=== PATIENT | female | born 1945 | race Two or more races ===

== ENCOUNTER 2017-11-12 10:37 | Inpatient (IN) | payer OTHER, MEDICAID ==
[~2017-11-12] VITALS: Ht 167.6 cm; Wt 81.6 kg
[2017-11-12] MEDS ORDERED: IV NS 0.9% 1,000 ML BAG IV ONE ×3 (11:30→15:30)
[2017-11-12 11:33] VITALS: BP 81/48
[2017-11-12 11:59] LABS: BASOPHILS # (AUTO) 0.2 /CMM (0.0-0.2); BASOPHILS % (AUTO) 0.8 % (0.0-2.0); EOSINOPHILS % (AUTO) 0.1 % (0.0-6.0); HEMATOCRIT 26 % (33-45); HEMOGLOBIN 8.6 g/dL (11.5-14.8); LYMPHOCYTES # (AUTO) 0.2 /CMM (0.8-4.8); LYMPHOCYTES % (AUTO) 0.9 % (20.0-44.0); MEAN CORPUSCULAR HEMOGLOBIN 30 PG (26.0-33.0); MEAN CORPUSCULAR HGB CONC 33 g/dl (31.0-36.0); MEAN CORPUSCULAR VOLUME 91 fL (82-100); MONOCYTES # (AUTO) 0.2 /CMM (0.1-1.30); MONOCYTES % (AUTO) 1.2 % (2.0-12.0); NEUTROPHILS # (AUTO) 20.1 /CMM (1.8-8.9); PLATELET COUNT (AUTO) 265 /CMM (150-450); RDW COEFFICIENT OF VARIATION 19.7 (11.5-15.0); RED BLOOD CELL COUNT(AUTO) 2.82 MIL/uL (4.0-5.2); WHITE BLOOD COUNT (AUTO) 20.8 K/uL (4.3-11.0)
[2017-11-12 12:17] LABS: INR 1.06 (0.87-1.13)
[2017-11-12 12:18] LABS: ALANINE AMINOTRANSFERASE 116 U/L (12-78); ALBUMIN 2.1 g/dL (3.4-5.0); ALKALINE PHOSPHATASE 362 U/L (46-116); ASPARTATE AMINOTRANSFERASE 134 U/L (15-37); BILIRUBIN,DIRECT 0.5 mg/dL (0.0-0.2); BILIRUBIN,TOTAL 0.7 mg/dL (0.2-1.0); CALCIUM, SERUM 9.6 mg/dL (8.5-10.1); CARBON DIOXIDE 28 mmol/L (21-32); CHLORIDE 99 mmol/L (98-107); CREATININE 3.5 mg/dL (0.6-1.3); GLUCOSE 193 mg/dL (74-106); POTASSIUM 4.6 mmol/L (3.5-5.1); SODIUM SERUM 136 mmol/L (136-145); TOTAL PROTEIN, SERUM 7.9 g/dL (6.4-8.2)
[2017-11-12 12:19] LABS: UREA NITROGEN, BLOOD 90 mg/dL (7-18)
[2017-11-12 12:20] LABS: TROPONIN I 0.299 ng/mL (0.00-0.056)
[2017-11-12] MEDS ORDERED: MEROPENEM 500 MG in IV NS 0.9% 50 ML IV ONE (13:00)
[2017-11-12] MEDS ORDERED: VANCOMYCIN 1 GM in IV D5W 250 ML IV ONE (13:00)
[2017-11-12 13:50] LABS: ABG PCO2 42.5 mmHg (35.0-45.0); ABG PH 7.388 (7.350-7.450); ABG PO2 225.6 mmHg (75.0-100.0); AaDO2 10.7 mmHg; COHb 0.6 % (0.5-1.5); MetHb 0.6 % (0.0-1.5); O2Hb 97.8 % (94.0-97.0); PEEP,BG 5 cm H2O; SITE, ABG Right Radial; VENT MODE, BG A/C; VT, ABG 400 mL
[2017-11-12] MEDS ORDERED: PIPERACILLIN /TAZOBACTAM 3.375 G in IV D5W 50 ML IV ONE (14:30)
[2017-11-12] MEDS ORDERED: LEVOFLOXACIN 750 MG /D5W 150ML 150 ML IV ONE ×2 (15:08→21:24)
[2017-11-12] MEDS ORDERED: LEVOFLOXACIN 750 MG /D5W 150ML PIGGYBACK IV ONE (15:30)
[2017-11-12 15:35] VITALS: BP 85/49
--- NOTE | 2017-11-12 16:00 | NUR ---
PATIENT ARRIVED TO THE FLOOR IN STABLE CONDITION. IN NO APPARENT DISTRESS. BEDSIDE RAILS ARE UP X2. BED IS LOCKED AND LOWERED. WILL CONTINUE TO MONITOR.
--- NOTE | 2017-11-12 16:07 | NUR ---
PT. TRANSFERRED TO 304 BED 2. PT. USED SAME [facility] VENT PLUGGED INTO RED OUTLET WITH ALARM ON AND FUNCTIONING. KINA BAG @ BEDSIDE. Addendum: 11/12/17 at 1608 by WILLIAM SMITH RT Amended: Links added.
[2017-11-12] MEDS ORDERED: FEE PK DOSING 1 MIN EA MC ONE (17:27)
--- NOTE | 2017-11-12 19:00 | NUR ---
FREQUENCY CHECKER CLOSING NOTES PATIENT IS IN STABLE CONDITION. IN NO APPARENT DISTRESS. BEDSIDE RAILS ARE UP X2. BED IS LOCKED AND LOWERED. WILL ENDORSE CARE TO DIRECTOR FOR BEAUT[employer] SCHOOL NURSE FOR SATISH.
--- NOTE | 2017-11-12 19:15 | NUR ---
ANIMAL HUSBANDRY TECHNICIAN NOTES RECEIVED ON BED,NON VERBAL,ON TRACH TO VENT,SETTINGS TOLERATED WELL.WITH GT CLAMPED,INCONTINENT OF B/B,BEDBOUND,SALINE LOCK RAC INTACT AND PATENT,RIGHT PERMA CATH FOR HD ACCESS.AWAITING ORDERS FROM MARIAM ATKINSON DNP.WILL CONTINUE TO MONITOR STATUS.
[2017-11-12] MEDS ORDERED: ONDANSETRON HCL/PF 4 MG/2 ML VIAL IVP PRN (19:30)
[2017-11-12] MEDS ORDERED: Z GUARD REMEDY 2 OZ OINT TP PRN (19:30)
[2017-11-12] MEDS ORDERED: ENOXAPARIN SODIUM 40 MG/0.4 ML DISP.SYRIN SQ SCH (19:30)
--- NOTE | 2017-11-12 19:50 | NUR ---
BUSINESS ANALYST PROJECT MANAGER NOTES SPOKE TO MARIAM FOR ORDERS.
[2017-11-12] MEDS ORDERED: LEVOFLOXACIN 750 MG /D5W 150ML 750 MG in PREMIX 1 EA IV SCH (20:00)
[2017-11-12 20:24] VITALS: BP 88/56
[2017-11-12 21:16] VITALS: BP_SYST 87
[2017-11-12] MEDS ORDERED: ENOXAPARIN SODIUM 40 MG/0.4 ML DISP.SYRIN SQ ONE (21:23)
[2017-11-12] MEDS ORDERED: MEROPENEM 1 G VIAL IV ONE (21:25)
--- NOTE | 2017-11-12 21:27 | NUR ---
INTELLECTUAL PROPERTY LAWYER NOTES STARTED ON LOVENOX 40MG GIVEN SQ VIA RIGHT LOWER ABDOMEN
[2017-11-12] MEDS: MEROPENEM 1 G in IV NS 0.9% 100 ML IV SCH (21:42)
--- NOTE | 2017-11-12 21:42 | NUR ---
CLINICAL DOCUMENTATION MANAGER NOTES STARTED ON MERREM 1GM IVPB ORDERED
[2017-11-12] MEDS: IV NS 0.9% 1,000 ML IV PRN (21:47)
--- NOTE | 2017-11-12 21:47 | NUR ---
HAT BRIM AND CROWN LAMINATING OPERATOR NOTES STARTED ON NS AT 75ML/HR RATE ORDERED
[2017-11-13] VITALS: BP 90/48
[2017-11-13 01:31] VITALS: BP 90/48
[2017-11-13 03:56] VITALS: BP 85/47
[2017-11-13] MEDS ORDERED: DEXTROSE 50%-WATER 50 ML DISP.SYRIN IV PRN (04:30)
[2017-11-13] MEDS ORDERED: MEROPENEM 1 G VIAL IV ONE (04:48)
[2017-11-13] MEDS: MEROPENEM 1 G in IV NS 0.9% 100 ML IV SCH (04:59)
[2017-11-13] MEDS: BLOOD SUGAR DIAGNOSTIC 1 EACH STRIP IN SCH ×4 (05:48→23:50)
[2017-11-13] MEDS ORDERED: RENAL NOVASOURCE 1,000 ML BOTTLE GT PRN ×2 (07:00→09:58)
--- NOTE | 2017-11-13 07:22 | NUR ---
BACK END DEVELOPER OPENING NOTES RECEIVED PATIENT IN STABLE CONDITION. IN NO APPARENT DISTRESS. BEDSIDE RAILS ARE UP X2. BED IS LOCKED AND LOWERED. WILL CONTINUE TO MONITOR.
[2017-11-13 08:00] VITALS: BP 80/47
[2017-11-13 08:27] LABS: ALANINE AMINOTRANSFERASE 118 U/L (12-78); ALBUMIN 1.8 g/dL (3.4-5.0); ALKALINE PHOSPHATASE 303 U/L (46-116); ASPARTATE AMINOTRANSFERASE 131 U/L (15-37); BILIRUBIN,TOTAL 0.8 mg/dL (0.2-1.0); CALCIUM, SERUM 9.2 mg/dL (8.5-10.1); CARBON DIOXIDE 25 mmol/L (21-32); CHLORIDE 104 mmol/L (98-107); GLUCOSE 73 mg/dL (74-106); MAGNESIUM 2.3 mg/dL (1.8-2.4); PHOSPHORUS 2.1 mg/dL (2.5-4.9); POTASSIUM 4.8 mmol/L (3.5-5.1); SODIUM SERUM 141 mmol/L (136-145); TOTAL PROTEIN, SERUM 7.3 g/dL (6.4-8.2)
[2017-11-13 08:28] LABS: BASOPHILS % (AUTO) 0.1 % (0.0-2.0); EOSINOPHILS # (AUTO) 0.1 /CMM (0.0-0.7); EOSINOPHILS % (AUTO) 0.7 % (0.0-6.0); HEMATOCRIT 24 % (33-45); HEMOGLOBIN 7.8 g/dL (11.5-14.8); LYMPHOCYTES # (AUTO) 0.5 /CMM (0.8-4.8); LYMPHOCYTES % (AUTO) 2.9 % (20.0-44.0); MEAN CORPUSCULAR HEMOGLOBIN 30 PG (26.0-33.0); MEAN CORPUSCULAR HGB CONC 33 g/dl (31.0-36.0); MEAN CORPUSCULAR VOLUME 91 fL (82-100); MONOCYTES # (AUTO) 0.6 /CMM (0.1-1.30); MONOCYTES % (AUTO) 3.5 % (2.0-12.0); NEUTROPHILS # (AUTO) 15.8 /CMM (1.8-8.9); NEUTROPHILS % (AUTO) 92.8 % (43.0-81.0); PLATELET COUNT (AUTO) 231 /CMM (150-450); RED BLOOD CELL COUNT(AUTO) 2.59 MIL/uL (4.0-5.2)
[2017-11-13 09:21] LABS: UREA NITROGEN, BLOOD 97 mg/dL (7-18)
[2017-11-13] MEDS ORDERED: MIDO5TAB GT (10:07)
[2017-11-13] MEDS ORDERED: IPRA3AMP IH (10:07)
[2017-11-13] MEDS ORDERED: POLY119P2 GT (10:07)
[2017-11-13] MEDS ORDERED: ATOR40TA GT (10:07)
[2017-11-13] MEDS ORDERED: B CO1TAB7 GT (10:07)
[2017-11-13] MEDS ORDERED: NUT.237L67 GT (10:07)
[2017-11-13] MEDS ORDERED: ASPI-1169 GT (10:07)
[2017-11-13] MEDS ORDERED: RISP1TAB27 GT (10:07)
[2017-11-13] MEDS ORDERED: EPOE20005 SQ (10:07)
[2017-11-13] MEDS ORDERED: METO-295 GT (10:07)
[2017-11-13] MEDS ORDERED: PANT40TA4 GT (10:07)
[2017-11-13] MEDS ORDERED: DOCU50LI GT (10:07)
[2017-11-13] MEDS ORDERED: INSU100I14 SQ (10:07)
[2017-11-13] MEDS: HEPARIN SODIUM, PORCINE 5000 UNITS/1 ML VIAL SQ SCH ×2 (10:30→21:00)
--- NOTE | 2017-11-13 10:30 | NUR ---
HELD HEPARIN. LOW HEMOGLOBIN. 7.6
[2017-11-13 11:02] LABS: CHOLESTEROL 52 mg/dL (<200); LDL 14 mg/dL (0-99); THYROID STIMULATING HORMONE 3.554 uIU/mL (0.358-3.74); TRIGLYCERIDES 133 mg/dL (30-150)
[2017-11-13 11:36] LABS: HDL CHOLESTEROL < 10 mg/dL (40-60)
[2017-11-13] MEDS ORDERED: NEUTRA PHOS 1 POWD.PACKET NG ONE (14:30)
[2017-11-13 16:00] VITALS: BP 131/78
[2017-11-13] MEDS ORDERED: VANCOMYCIN 500 MG in IV D5W 100 ML IV PRN (16:00)
--- NOTE | 2017-11-13 19:01 | NUR ---
MS RN CLOSING NOTES PATIENT IS IN STABLE CONDITION IN NO APPARENT DISTRESS. BEDSIDE RAILS ARE UP X2. BED IS LOCKED AND LOWERED. CALL LIGHT IS WITHIN REACH. WILL ENDORSE CARE TO SCIENTIFIC INFORMATICS PROJECT LEADER NURSE FOR SATISH.
--- NOTE | 2017-11-13 19:10 | NUR ---
RN OPENING NOTES PATIENT RECEIVED IN BED, AWAKE, NON VERBAL, IV HYDRATION INFUSING ORDERED. IN NO ACUTE DISTRESS AT THIS TIME, SR @ 92 BPM. NOTED WITH NO FACIAL GRIMACING, CALL LIGHT PLACED WITHIN EASY REACH, HOB ELEVATED. WILL CONTINUE TO MONITOR.
[2017-11-13 20:00] VITALS: BP_SYST 89; BP_SYST 90; BP_DIAS 35; BP_DIAS 40
[2017-11-13] MEDS: MEROPENEM 500 MG in IV NS 0.9% 50 ML IV SCH (20:24)
[2017-11-13] MEDS: IV NS 0.9% 1,000 ML IV PRN (20:24)
--- NOTE | 2017-11-13 21:00 | NUR ---
RN NOTES HEPARIN HELD DUE TO HGB LOW LEVEL: 7.8
[2017-11-13] MEDS: INSULIN REGULAR, HUMAN 100 UNIT/ML 3 ML VIAL SQ PRN (23:49)
[2017-11-14] VITALS (7 sets, daily range): BP systolic 87–104; BP diastolic 51–57
[2017-11-14] MEDS: ACETAMINOPHEN 325 MG TABLET PO PRN ×2 (02:52→09:31)
[2017-11-14] MEDS: BLOOD SUGAR DIAGNOSTIC 1 EACH STRIP IN SCH ×3 (05:39→18:28)
[2017-11-14] MEDS: INSULIN REGULAR, HUMAN 100 UNIT/ML 3 ML VIAL SQ PRN ×2 (05:41→13:00)
--- NOTE | 2017-11-14 06:45 | NUR ---
RN CLOSING NOTES PATIENT IN BED, AWAKE, ALERT AND VERBALLY RESPONSIVE, ON MECH VENT WITH O2 SAT @ 100%, UNDER TELE MONITORING SR@90 WITH BBB, NO C/O PAIN AT THIS TIME, NO S/S OF ACUTE DISTRESS. ALL PATIENT'S NEEDS ATTENDED TO, CALL LIGHT PLACED WITHIN EASY REACH. WILL ENDORSE TO AM SHIFT FOR CONTINUITY OF CARE.
[2017-11-14 07:16] LABS: EOSINOPHILS # (AUTO) 0.2 /CMM (0.0-0.7); EOSINOPHILS % (AUTO) 1.1 % (0.0-6.0); HEMATOCRIT 24 % (33-45); HEMOGLOBIN 8.2 g/dL (11.5-14.8); LYMPHOCYTES # (AUTO) 0.6 /CMM (0.8-4.8); LYMPHOCYTES % (AUTO) 3.9 % (20.0-44.0); MEAN CORPUSCULAR HEMOGLOBIN 31 PG (26.0-33.0); MEAN CORPUSCULAR HGB CONC 34 g/dl (31.0-36.0); MEAN CORPUSCULAR VOLUME 91 fL (82-100); MONOCYTES # (AUTO) 0.6 /CMM (0.1-1.30); PLATELET COUNT (AUTO) 239 /CMM (150-450); RDW COEFFICIENT OF VARIATION 19.9 (11.5-15.0); RED BLOOD CELL COUNT(AUTO) 2.68 MIL/uL (4.0-5.2); WHITE BLOOD COUNT (AUTO) 15.4 K/uL (4.3-11.0)
--- NOTE | 2017-11-14 07:24 | NUR ---
PT. RECEIVED ON VENT SUPPORT VIA TRACH WITH PARAMETERS SET ORDERED. [facility] VENT PLUGGED INTO RED OUTLET WITH ALARMS ON AND FUNCTIONING. B/S COURSE RHONCHI BILATERAL, SXN MOD. AMNT PALE YELLOW SEMI THICK SECRETIONS. AMBUBAG AT BEDSIDE. Addendum: 11/14/17 at 1707 by WILLIAM SMITH RT Amended: Links added.
[2017-11-14 07:55] LABS: CALCIUM, SERUM 9.4 mg/dL (8.5-10.1); CARBON DIOXIDE 25 mmol/L (21-32); CHLORIDE 101 mmol/L (98-107); CREATININE 4.3 mg/dL (0.6-1.3); GLUCOSE 164 mg/dL (74-106); MAGNESIUM 2.4 mg/dL (1.8-2.4); PHOSPHORUS 2.2 mg/dL (2.5-4.9); POTASSIUM 4.7 mmol/L (3.5-5.1); SODIUM SERUM 138 mmol/L (136-145)
[2017-11-14 07:57] LABS: UREA NITROGEN, BLOOD 119 mg/dL (7-18)
--- NOTE | 2017-11-14 08:00 | NUR ---
RN OPENING NOTES PATIENT IN BED, AWAKE, NON VERBAL, HOB ELEVATED .NO ACUTE DISTRESS NOTED. NO FACIAL GRIMACING NOTED. NO SOB NOTED. IV ACCESS PATENT AND INTACT. NO REDNESS, NO S/SX OF INFILTRATION NOTED. CALL LIGHT PLACED WITHIN REACH. SAFETY MEASURES IN PLACE. WILL CONTINUE TO MONITOR ACCORDINGLY.
[2017-11-14] MEDS: HEPARIN SODIUM, PORCINE 5000 UNITS/1 ML VIAL SQ SCH ×2 (09:00→21:00)
--- NOTE | 2017-11-14 09:00 | NUR ---
RN NOTES HEPARIN HELD DUE TO HGB LOW LEVEL
[2017-11-14] MEDS: MEROPENEM 500 MG in IV NS 0.9% 50 ML IV SCH ×2 (09:30→21:58)
[2017-11-14] MEDS ORDERED: EPOETIN ALFA (10,000 UNIT) 10,000 UNIT/ML VIAL IV ONE (13:00)
[2017-11-14] MEDS ORDERED: ALBUMIN 25% 25 GM in PREMIX 1 EA IV PRN (15:30)
--- NOTE | 2017-11-14 17:07 | NUR ---
NO VENT CHANGES MADE. Addendum: 11/14/17 at 1707 by WILLIAM SMITH RT Amended: Links added.
[2017-11-14] MEDS: PROSOURCE / PROSTAT (PYXIS) 30 ML UDC GT SCH (18:26)
--- NOTE | 2017-11-14 18:55 | NUR ---
RN CLOSING NOTES PATIENT IN BED, ALERT, NON VERBAL, HOB ELEVATED. NO SOB NOTED. NO ACUTE DISTRESS NOTED. DENIED ANY PAIN ,NO FACIAL GRIMACING NOTED. IV ACCESS PATENT AND INTACT. NO REDNESS, NO S/SX OF INFILTRATION NOTED. GTUBE PATENT AND INTACT RUNNING PRESCRIBED FEEDING. DUE MEDICATIONS GIVEN, NO ASE NOTED.EPOGEN GIVEN WHEN AVAILABLE. HEMODIALYSIS DONE TODAY. VITAL SIGNS STABLE. NEEDS ATTENDED. CALL LIGHT PLACED WITHIN REACH. SAFETY MEASURES IN PLACE. WILL CONTINUE TO MONITOR ACCORDINGLY.WILL ENDORSE TO SALES PRODUCT MANAGER FOR CONTINUITY OF CARE.
[2017-11-14] MEDS ORDERED: LEVOFLOXACIN 500 MG /D5W 100ML 500 MG in PREMIX 1 EA IV SCH (23:00)
[2017-11-15] VITALS: BP 118/72
[2017-11-15] MEDS: BLOOD SUGAR DIAGNOSTIC 1 EACH STRIP IN SCH ×4 (00:01→17:57)
[2017-11-15] MEDS: INSULIN REGULAR, HUMAN 100 UNIT/ML 3 ML VIAL SQ PRN ×2 (00:26→23:49)
--- NOTE | 2017-11-15 00:28 | NUR ---
CABLE RESPOOLER NOTE BLOOD SUGAR 139. 2 UNITS OF INSULIN GIVEN.
[2017-11-15 04:00] VITALS: BP_SYST 107; BP_SYST 118; BP_DIAS 50; BP_DIAS 72
[2017-11-15] MEDS: RENAL NOVASOURCE 1,000 ML BOTTLE GT PRN (06:02)
--- NOTE | 2017-11-15 06:37 | NUR ---
WRITING TUTOR NOTE PATIENT KEPT CLEAN AND DRY. TELE SR WITH BBB'S. VENT DEPENDENT, WITH SETTINGS IN PLACE ORDERED. WOUND CARE PERFORMED ORDERED. BLOOD SUGAR 95. NO COVERAGE NEEDED. WILL ENDORSE TO DAY SHIFT FOR SATISH.
[2017-11-15 06:41] LABS: EOSINOPHILS # (AUTO) 0.4 /CMM (0.0-0.7); EOSINOPHILS % (AUTO) 2.4 % (0.0-6.0); HEMATOCRIT 25 % (33-45); LYMPHOCYTES # (AUTO) 0.9 /CMM (0.8-4.8); LYMPHOCYTES % (AUTO) 5.3 % (20.0-44.0); MEAN CORPUSCULAR HEMOGLOBIN 30 PG (26.0-33.0); MEAN CORPUSCULAR HGB CONC 33 g/dl (31.0-36.0); MEAN CORPUSCULAR VOLUME 92 fL (82-100); MONOCYTES # (AUTO) 0.9 /CMM (0.1-1.30); MONOCYTES % (AUTO) 5.4 % (2.0-12.0); NEUTROPHILS # (AUTO) 14.2 /CMM (1.8-8.9); NEUTROPHILS % (AUTO) 86.9 % (43.0-81.0); PLATELET COUNT (AUTO) 233 /CMM (150-450); RDW COEFFICIENT OF VARIATION 21.6 (11.5-15.0); RED BLOOD CELL COUNT(AUTO) 2.68 MIL/uL (4.0-5.2); WHITE BLOOD COUNT (AUTO) 16.4 K/uL (4.3-11.0)
[2017-11-15 07:03] LABS: CALCIUM, SERUM 8.9 mg/dL (8.5-10.1); CARBON DIOXIDE 27 mmol/L (21-32); CHLORIDE 102 mmol/L (98-107); CREATININE 3.6 mg/dL (0.6-1.3); GLUCOSE 95 mg/dL (74-106); MAGNESIUM 2.2 mg/dL (1.8-2.4); PHOSPHORUS 1.8 mg/dL (2.5-4.9); POTASSIUM 4.2 mmol/L (3.5-5.1); SODIUM SERUM 142 mmol/L (136-145)
[2017-11-15 07:12] LABS: UREA NITROGEN, BLOOD 91 mg/dL (7-18)
[2017-11-15 07:14] LABS: ALBUMIN 1.9 g/dL (3.4-5.0); BILIRUBIN,DIRECT 0.3 mg/dL (0.0-0.2); BILIRUBIN,TOTAL 0.7 mg/dL (0.2-1.0); TOTAL PROTEIN, SERUM 7.7 g/dL (6.4-8.2)
[2017-11-15 08:00] VITALS: BP 91/54
--- NOTE | 2017-11-15 08:00 | NUR ---
TEAM PHYSICIAN NOTES PATIENT IN BED RESTING NO SOB OR ACUTE DISTRESS NOTED. PATIENT VENTILATOR DEPENDENT. VENT SETTINGS NOTED. PERIPHERAL IV INTACT PATENT. ON G-TUBE FEEDING, G-TUBE INTACT PATENT. BED IN LOW LOCKED POSITION. CALL LIGHT WITHIN REACH. WILL CONTINUE TO MONITOR.
[2017-11-15] MEDS: HEPARIN SODIUM, PORCINE 5000 UNITS/1 ML VIAL SQ SCH ×2 (09:00→21:39)
--- NOTE | 2017-11-15 09:10 | NUR ---
WOUND CARE CONSULT: PT PRESENTS WITH MULTIPLE WOUNDS, PRESENT ON ADMISSION INCLUDING STAGE 4 ULCER WITH NECROTIC TISSUE AND ODOR, & BILATERAL HEEL ESCHARS. ALL SKIN PROTECTION AND WOUND RECOMMENDATIONS DISCUSSED WITH NURSING STAFF. RECOMMEND SURGICAL CONSULT. FIRST STEP MATTRESS ORDERED. PT IS VENT AND DIALYSIS DEPENDENT WITH CURRENT MADELEINE SCORE OF 12. WILL SEE PRN. BHAGAT IN AGREEMENT WITH PLAN OF CARE. SCARRING AND VARIX NOTED TO LEFT LOWER LEG. Addendum: 11/15/17 at 0916 by THERON ALFONSO WNDNU Amended: Links added.
[2017-11-15] MEDS: LACTOBACILLUS RHAMNOSUS GG 1 EACH CAP.SPRINK PO SCH ×2 (09:18→17:55)
[2017-11-15] MEDS: VIT B CMPLX 3/FA/VIT C/BIOTIN 1 TAB TABLET PO SCH (09:18)
[2017-11-15] MEDS: ZINC SULFATE 220 MG CAPSULE PO SCH (09:18)
[2017-11-15] MEDS: MEROPENEM 500 MG in IV NS 0.9% 50 ML IV SCH ×2 (09:19→21:39)
[2017-11-15] MEDS: PROSOURCE / PROSTAT (PYXIS) 30 ML UDC GT SCH ×2 (09:19→17:57)
[2017-11-15] MEDS: ACETAMINOPHEN 325 MG TABLET PO PRN (10:39)
[2017-11-15] MEDS ORDERED: LACT1CAP72 PO (11:15)
[2017-11-15] MEDS ORDERED: LEVO500T90 IV (11:15)
[2017-11-15] MEDS ORDERED: MERO500V IV (11:15)
[2017-11-15] MEDS ORDERED: Renal Novasource GT (11:15)
[2017-11-15] MEDS: DAKINS QUARTER STRENGTH (0.125%) 480 ML BOTTLE TOP SCH (11:58)
--- NOTE | 2017-11-15 12:14 | NUR ---
ASSEMBLY REPAIRER NOTES CALL RECEIVED FROM LAB REPORTING POSITIVE BLOOD CULTURES FOR GRAM NEGATIVE RODS. DR. RANDHAWA NOTIFIED ORDERS TO CONTINUE SAME MEDICATIONS PRESCRIBED FOR DISCHARGE.
[2017-11-15] MEDS ORDERED: LIDOCAINE 1%-EPI 1:100,000 20 ML VIAL IJ STA (13:24)
--- NOTE | 2017-11-15 13:30 | NUR ---
RHEUMATOLOGY SPECIALIST NOTES SPECIAL INVESTIGATOR XANDER Dalal AT BED SIDE PERFORMING DEBRIDEMENT, PATIENT TOLERATING WELL. CONSENT OBTAINED FROM PATIENTS NEXT OF KIN AGA FRIEND.(ONLY PHONE NUMBER IN THE CHART). WILL CONTINUE TO MONITOR.
[2017-11-15] MEDS ORDERED: LIDOCAINE 2%-EPI 1:100,000 30 ML VIAL IJ ONE (14:00)
[2017-11-15] MEDS ORDERED: NEUTRA PHOS 1 POWD.PACKET NG ONE ×2 (15:00→17:30)
[2017-11-15 16:00] VITALS: BP 91/52
--- NOTE | 2017-11-15 19:55 | NUR ---
CHILDHOOD TEACHER NOTES PATIENT IN BED RESTING NO SOB OR ACUTE DISTRESS NOTED. ALL DUE MEDICATIONS ADMINISTERED. ALL NEEDS MET. WOUND CARE PERFORMED ACCORDINGLY. PAIN CONTROLLED. VENT SETTINGS NOTED. PERIPHERAL IV INTACT, PATENT. G-TUBE FEEDING TOLERATING WELL. BED IN LOW LOCKED POSITION. CALL LIGHT WITHIN REACH. WILL CONTINUE TO MONITOR.
[2017-11-15 20:00] VITALS: BP 106/61
[2017-11-15 22:00] VITALS: BP 106/61
[2017-11-16] VITALS: BP 103/55
[2017-11-16] MEDS: BLOOD SUGAR DIAGNOSTIC 1 EACH STRIP IN SCH ×4 (00:26→17:23)
[2017-11-16 04:00] VITALS: BP 98/49
--- NOTE | 2017-11-16 06:23 | NUR ---
ARTIFICIAL INSEMINATOR NOTE PATIENT KEPT CLEAN AND DRY. TELE SR WITH BBB'S. VENT DEPENDENT, WITH SETTINGS IN PLACE ORDERED. WOUND CARE PERFORMED ORDERED. BLOOD SUGAR 124. NO COVERAGE NEEDED. WILL ENDORSE TO DAY SHIFT FOR SATISH.
[2017-11-16 07:47] LABS: BASOPHILS % (AUTO) 0.1 % (0.0-2.0); EOSINOPHILS # (AUTO) 0.4 /CMM (0.0-0.7); EOSINOPHILS % (AUTO) 2.5 % (0.0-6.0); HEMATOCRIT 25 % (33-45); HEMOGLOBIN 8.4 g/dL (11.5-14.8); LYMPHOCYTES # (AUTO) 1.2 /CMM (0.8-4.8); LYMPHOCYTES % (AUTO) 7.6 % (20.0-44.0); MEAN CORPUSCULAR HEMOGLOBIN 30 PG (26.0-33.0); MEAN CORPUSCULAR HGB CONC 34 g/dl (31.0-36.0); MEAN CORPUSCULAR VOLUME 90 fL (82-100); MONOCYTES # (AUTO) 0.9 /CMM (0.1-1.30); MONOCYTES % (AUTO) 5.4 % (2.0-12.0); NEUTROPHILS # (AUTO) 13.4 /CMM (1.8-8.9); NEUTROPHILS % (AUTO) 84.4 % (43.0-81.0); PLATELET COUNT (AUTO) 243 /CMM (150-450); RDW COEFFICIENT OF VARIATION 19.5 (11.5-15.0); RED BLOOD CELL COUNT(AUTO) 2.78 MIL/uL (4.0-5.2); WHITE BLOOD COUNT (AUTO) 15.9 K/uL (4.3-11.0)
--- NOTE | 2017-11-16 07:51 | NUR ---
WOOD BUCKER NOTES PATIENT IN BED, AWAKE. EYES OPEN, USING MOUTH WORDS. TRACH INTACT, ON VENT. SINUS RHYTHM WITH BBB, PVC HR 80. APPEARS COMFORTABLE IN BED, NO C/O ANY DISCOMFORT. ABDOMEN PRESENCE OF GTUBE, WITH GTUBE FEEDING NOVASOURCE AT 40ML/HR, MAINTAIN HOB ELEVATED. CALL LIGHT WITHIN REACH. WILL CONT TO MONITOR.
[2017-11-16 08:00] VITALS: BP 98/54
[2017-11-16 09:04] LABS: CALCIUM, SERUM 8.8 mg/dL (8.5-10.1); CARBON DIOXIDE 26 mmol/L (21-32); CHLORIDE 104 mmol/L (98-107); CREATININE 4.3 mg/dL (0.6-1.3); GLUCOSE 119 mg/dL (74-106); MAGNESIUM 2.2 mg/dL (1.8-2.4); PHOSPHORUS 2.8 mg/dL (2.5-4.9); POTASSIUM 4.7 mmol/L (3.5-5.1); SODIUM SERUM 143 mmol/L (136-145)
[2017-11-16 09:07] LABS: UREA NITROGEN, BLOOD 113 mg/dL (7-18)
[2017-11-16] MEDS: ZINC SULFATE 220 MG CAPSULE PO SCH (09:11)
[2017-11-16] MEDS: VIT B CMPLX 3/FA/VIT C/BIOTIN 1 TAB TABLET PO SCH (09:11)
[2017-11-16] MEDS: LACTOBACILLUS RHAMNOSUS GG 1 EACH CAP.SPRINK PO SCH ×2 (09:11→17:01)
[2017-11-16] MEDS: PROSOURCE / PROSTAT (PYXIS) 30 ML UDC GT SCH ×2 (09:11→16:59)
[2017-11-16] MEDS: MEROPENEM 500 MG in IV NS 0.9% 50 ML IV SCH ×2 (09:12→21:07)
[2017-11-16] MEDS: HEPARIN SODIUM, PORCINE 5000 UNITS/1 ML VIAL SQ SCH ×2 (09:15→21:08)
[2017-11-16] MEDS: DAKINS QUARTER STRENGTH (0.125%) 480 ML BOTTLE TOP SCH (10:44)
[2017-11-16 12:00] VITALS: BP 104/54
[2017-11-16] MEDS ORDERED: VANCOMYCIN 500 MG in IV D5W 100 ML IV PRN (12:00)
[2017-11-16] MEDS: INSULIN REGULAR, HUMAN 100 UNIT/ML 3 ML VIAL SQ PRN ×2 (12:09→17:59)
[2017-11-16] MEDS: RENAL NOVASOURCE 1,000 ML BOTTLE GT PRN (14:13)
--- NOTE | 2017-11-16 15:01 | NUR ---
DIALYSIS TREATMENT STARTED, DIALYSIS NURSE AT THE BED SIDE.
[2017-11-16 16:00] VITALS: BP 108/57
--- NOTE | 2017-11-16 17:03 | NUR ---
DIALYSIS TREATMENT DONE, 1.5L FLUID OUTPUT PER DIALYSIS NURSE. PATIENT TOLERATED WELL WITH BP 111/64 POST DIALYSIS TREATMENT.
--- NOTE | 2017-11-16 17:19 | NUR ---
VANCOMYCIN TROUGH LEVEL 39. HELD VANCOMYCIN DOSE POST DIALYSIS, PHARMACY INFORMED.
--- NOTE | 2017-11-16 18:16 | NUR ---
CALLED [facility][NOTE 3] CONGREGATE SPOKE TO ROBBIE/KADY, FOLLOW UP FLU AND PNA VACCINATIONS RECORD, AND UPDATED.
--- NOTE | 2017-11-16 18:56 | NUR ---
DEBONE PROCESSING SUPERVISOR CLOSING NOTES PATIENT IN BED, EYES OPEN, ABLE TO MOUTH WORDS. ON TELE MONITOR SINUS RHYTHM WITH BBB, PVC HR 81. ON ANTIBIOTIC WITH NO ADVERSE REACTION NOTED, AFEBRILE. DRESSING CHANGED IN SACRAL WOUND. BLOOD SUGAR MONITORED, WITH ISS COVERAGE ORDERED. REMAINS ON VENT WITH THE SAME SETTINGS, SUCTION PRN. 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 CONT HOSPITALIZATION. WILL ENDORSE TO CLIPPER COUNTERS RN FOR SATISH.
[2017-11-16 20:24] VITALS: BP 122/64
[2017-11-17] VITALS (7 sets, daily range): BP systolic 99–117; BP diastolic 52–66
[2017-11-17] MEDS: BLOOD SUGAR DIAGNOSTIC 1 EACH STRIP IN SCH ×4 (00:18→17:54)
[2017-11-17] MEDS: INSULIN REGULAR, HUMAN 100 UNIT/ML 3 ML VIAL SQ PRN ×2 (06:22→18:04)
--- NOTE | 2017-11-17 06:36 | NUR ---
HEAD LINEMAN NOTES AWAKE & ALERT. NOT IN ANY DISTRESS. NO SOB NOTED. NO S/SX OF ANY PAIN OR DISCOMFORT AT THIS TIME. ON TELE SR WITH BBB @ 78 WITH MIDLINE PATENT & INTACT. AM CARE DONE. MONITORED ACCORDINGLY. CALL LIGHT WITHIN REACH. BED IN LOWEST POSITION. SR UP X 3 WITH BED ALARM ON FOR SAFETY. WILL ENDORSE TO NEXT SHIFT.
--- NOTE | 2017-11-17 07:29 | NUR ---
DOUGH PUNCHER: INITIAL NOTE RECEIVED PT A/OX3. OPENS EYES AND NODS HEAD. ON MECHANICAL VENTILATOR. SETTINGS INCLUDE AC 12, TV 400, FIO2 75%, PEEP 4. ON TELE MONITORING SR AT 77. INCONTINENT WITH DIAPER. NO DISTRESS NOTED. NO SOB NOTED. NO PAIN NOTED.BED BOUND. ON G-TUBE FEEDING NOVASOURCE AT 40ML/HR. SITE CLEAR AND PATENT. RESTING COMFORTABLY IN BED. CALL LIGHT WITHIN REACH.
[2017-11-17 07:34] LABS: EOSINOPHILS # (AUTO) 0.5 /CMM (0.0-0.7); EOSINOPHILS % (AUTO) 2.8 % (0.0-6.0); HEMATOCRIT 24 % (33-45); HEMOGLOBIN 8.1 g/dL (11.5-14.8); LYMPHOCYTES # (AUTO) 1.2 /CMM (0.8-4.8); LYMPHOCYTES % (AUTO) 6.7 % (20.0-44.0); MEAN CORPUSCULAR HEMOGLOBIN 31 PG (26.0-33.0); MEAN CORPUSCULAR HGB CONC 34 g/dl (31.0-36.0); MEAN CORPUSCULAR VOLUME 92 fL (82-100); MONOCYTES # (AUTO) 0.7 /CMM (0.1-1.30); MONOCYTES % (AUTO) 3.9 % (2.0-12.0); NEUTROPHILS # (AUTO) 15.5 /CMM (1.8-8.9); NEUTROPHILS % (AUTO) 86.6 % (43.0-81.0); PLATELET COUNT (AUTO) 241 /CMM (150-450); RDW COEFFICIENT OF VARIATION 20.9 (11.5-15.0); RED BLOOD CELL COUNT(AUTO) 2.62 MIL/uL (4.0-5.2); WHITE BLOOD COUNT (AUTO) 17.9 K/uL (4.3-11.0)
[2017-11-17 08:16] LABS: ALBUMIN 1.9 g/dL (3.4-5.0); BILIRUBIN,DIRECT 0.3 mg/dL (0.0-0.2); BILIRUBIN,TOTAL 0.6 mg/dL (0.2-1.0); TOTAL PROTEIN, SERUM 7.5 g/dL (6.4-8.2)
[2017-11-17 08:33] LABS: CHLORIDE 104 mmol/L (98-107); POTASSIUM 4.5 mmol/L (3.5-5.1); SODIUM SERUM 143 mmol/L (136-145)
[2017-11-17 08:34] LABS: CALCIUM, SERUM 8.8 mg/dL (8.5-10.1); CARBON DIOXIDE 27 mmol/L (21-32); CREATININE 3.6 mg/dL (0.6-1.3); GLUCOSE 158 mg/dL (74-106); MAGNESIUM 2.2 mg/dL (1.8-2.4); PHOSPHORUS 2.6 mg/dL (2.5-4.9)
[2017-11-17] MEDS: LACTOBACILLUS RHAMNOSUS GG 1 EACH CAP.SPRINK PO SCH ×2 (09:03→17:54)
[2017-11-17] MEDS: VIT B CMPLX 3/FA/VIT C/BIOTIN 1 TAB TABLET PO SCH (09:03)
[2017-11-17] MEDS: ZINC SULFATE 220 MG CAPSULE PO SCH (09:03)
[2017-11-17] MEDS: MEROPENEM 500 MG in IV NS 0.9% 50 ML IV SCH ×2 (09:03→20:50)
[2017-11-17] MEDS: PROSOURCE / PROSTAT (PYXIS) 30 ML UDC GT SCH ×2 (09:05→17:54)
[2017-11-17] MEDS: HEPARIN SODIUM, PORCINE 5000 UNITS/1 ML VIAL SQ SCH ×2 (09:05→20:50)
[2017-11-17] MEDS: DAKINS QUARTER STRENGTH (0.125%) 480 ML BOTTLE TOP SCH (09:05)
[2017-11-17 09:20] LABS: UREA NITROGEN, BLOOD 95 mg/dL (7-18)
[2017-11-17] MEDS: ACETAMINOPHEN 325 MG TABLET PO PRN (10:08)
[2017-11-17] MEDS: oxyCODONE/APAP (5/325 MG) 1 UDTAB TABLET GT PRN (13:09)
--- NOTE | 2017-11-17 14:30 | NUR ---
DIALYSIS COMPLETE. 3L REMOVED. DANIEL 117/58, PULSE 88. NO DISTRESS NOTED. NO SOB NOTED. RESTING IN BED COMFORTABLY.
[2017-11-17] MEDS: RENAL NOVASOURCE 1,000 ML BOTTLE GT PRN (15:05)
--- NOTE | 2017-11-17 18:30 | NUR ---
FLAVORING MACHINE OPERATOR: CLOSING NOTE PT A/OX3. ABLE TO MOUTH WORDS AND NOD. ON MECHANICAL VENTILATION. SETTINGS ARE AC 12, TV 400, FIO2 75%, PEEP 4. NO DISTRESS NOTED. NO SOB NOTED. ADMINISTERED ALL MEDICATIONS ON TIME VIA G-TUBE. NO ADVERSE REACTIONS NOTED. G-TUBE SITE CLEAR. NOVASOURCE FEEDING RUNNING AT 40ML/HR. NO DIARRHEA NOTED. ON TELE MONITORING SR 91 BPM. BED BOUND. SACRAL WOUND STAGE 4 WOUND CARE DONE. RAJAN MIDLINE G 20 WITH NO IV FLUIDS RUNNING. INSULIN GIVEN PER SLIDING SCALE. RESTING COMFORTABLY IN BED. CALL LIGHT WITHIN REACH.
[2017-11-18] VITALS: BP 107/62
[2017-11-18] MEDS: BLOOD SUGAR DIAGNOSTIC 1 EACH STRIP IN SCH ×4 (00:06→17:22)
[2017-11-18 04:00] VITALS: BP 110/55
--- NOTE | 2017-11-18 06:33 | NUR ---
LAPEL PADDER BLINDSTITCH NOTES AWAKE & ALERT. NOT IN ANY DISTRESS. NO SOB NOTED. NO S/SX OF ANY PAIN OR DISCOMFORT AT THIS TIME. ON TELE SR WITH BBB @ 83 WITH MIDLINE PATENT & INTACT.WITH GTF INFUSING WELL. AM CARE DONE. MONITORED ACCORDINGLY. CALL LIGHT WITHIN REACH. BED IN LOWEST POSITION. SR UP X 3 WITH BED ALARM ON FOR SAFETY. WILL ENDORSE TO NEXT SHIFT.
[2017-11-18 07:17] LABS: EOSINOPHILS # (AUTO) 0.7 /CMM (0.0-0.7); EOSINOPHILS % (AUTO) 3.7 % (0.0-6.0); HEMATOCRIT 25 % (33-45); HEMOGLOBIN 8.2 g/dL (11.5-14.8); LYMPHOCYTES % (AUTO) 5.3 % (20.0-44.0); MEAN CORPUSCULAR HEMOGLOBIN 30 PG (26.0-33.0); MEAN CORPUSCULAR HGB CONC 33 g/dl (31.0-36.0); MEAN CORPUSCULAR VOLUME 91 fL (82-100); MONOCYTES # (AUTO) 0.8 /CMM (0.1-1.30); MONOCYTES % (AUTO) 4.1 % (2.0-12.0); NEUTROPHILS # (AUTO) 16.5 /CMM (1.8-8.9); NEUTROPHILS % (AUTO) 86.9 % (43.0-81.0); PLATELET COUNT (AUTO) 258 /CMM (150-450); RDW COEFFICIENT OF VARIATION 20.7 (11.5-15.0); RED BLOOD CELL COUNT(AUTO) 2.77 MIL/uL (4.0-5.2)
[2017-11-18 07:28] LABS: CALCIUM, SERUM 8.6 mg/dL (8.5-10.1); CARBON DIOXIDE 29 mmol/L (21-32); CHLORIDE 101 mmol/L (98-107); CREATININE 3.1 mg/dL (0.6-1.3); GLUCOSE 109 mg/dL (74-106); PHOSPHORUS 2.6 mg/dL (2.5-4.9); POTASSIUM 4.4 mmol/L (3.5-5.1); SODIUM SERUM 141 mmol/L (136-145)
--- NOTE | 2017-11-18 07:30 | NUR ---
RN OPENING NOTES RECEIVED PT. PT IS STABLE AND RESTING IN BED. A/OX3, PT IS NONVERBAL. NO S/S OF RESPIRATORY DISTRESS. PT IS VENT DEPENDENT, SETTINGS IN PLACE. DENIES PAIN AT THIS TIME, WILL F/U. TELE MONITOR READING SR W/ BBB. IV ACCESS LOCATED ON RIGHT UPPER ARM, MIDLINE 20G. HD DONE ON 11/17/16. GT IN PLACE AND PATENT WITH NOVASOURCE FEED AT 40 ML/HR. SAFETY MEASURES IN PLACE,CALL LIGHT WITHIN REACH. WILL CONTINUE TO MONITOR.
[2017-11-18 07:44] LABS: UREA NITROGEN, BLOOD 84 mg/dL (7-18)
[2017-11-18 08:00] VITALS: BP 109/57
[2017-11-18] MEDS: MEROPENEM 500 MG in IV NS 0.9% 50 ML IV SCH ×2 (08:35→22:04)
[2017-11-18] MEDS: VIT B CMPLX 3/FA/VIT C/BIOTIN 1 TAB TABLET PO SCH (08:36)
[2017-11-18] MEDS: HEPARIN SODIUM, PORCINE 5000 UNITS/1 ML VIAL SQ SCH ×2 (08:36→21:00)
[2017-11-18] MEDS: ZINC SULFATE 220 MG CAPSULE PO SCH (08:36)
[2017-11-18] MEDS: LACTOBACILLUS RHAMNOSUS GG 1 EACH CAP.SPRINK PO SCH ×2 (08:36→16:33)
[2017-11-18] MEDS: PROSOURCE / PROSTAT (PYXIS) 30 ML UDC GT SCH ×2 (08:37→16:33)
[2017-11-18] MEDS: DAKINS QUARTER STRENGTH (0.125%) 480 ML BOTTLE TOP SCH (09:17)
--- NOTE | 2017-11-18 11:50 | NUR ---
RN NOTES MD NOTIFIED OF PROCALCITONIN LAB RESULTS.
[2017-11-18] MEDS: oxyCODONE/APAP (5/325 MG) 1 UDTAB TABLET GT PRN (14:50)
[2017-11-18] MEDS: RENAL NOVASOURCE 1,000 ML BOTTLE GT PRN (16:33)
--- NOTE | 2017-11-18 18:50 | NUR ---
RN CLOSING NOTES PT IN BED SLEEPING. NO S/S OF SOB/RESP DISTRESS. PT DOES NOT APPEAR TO BE IN PAIN. VENT SETTINGS IN PLACE.ALL PT NEEDS ANTICIPATED AND MET. CALL LIGHT WITHIN REACH, WILL ENDORSE TO SHEEP KILLER FOR SATISH.
[2017-11-18 20:00] VITALS: BP 97/47
--- NOTE | 2017-11-18 20:00 | NUR ---
MS/RN OPENING NOTES PATIENT IN BED, HOB ELEVATED, ON GTUBE AND VENT SETTING , ID MD ORDERED FOR ISOLATION FOR MRSA NARES RESULT.PERSCRIBED, WITH NEEDED SUCTIONING, GTUBE RESIDUAL CHECK WITH NO RESIDUAL, WILL MONITOR
[2017-11-18] MEDS: MUPIROCIN OINT 2% 22 GM TUBE SCH (21:00)
--- NOTE | 2017-11-18 22:05 | NUR ---
MS/RN NOTES PATIENT WIWTH REVISE AV SHUNT KRISTEL BY DR. ANGLIN 11/19/2016 PER AM RN REPORTED.AT BEDSIDE.
[2017-11-19] VITALS: BP 113/62
[2017-11-19] MEDS: BLOOD SUGAR DIAGNOSTIC 1 EACH STRIP IN SCH ×4 (00:24→17:23)
--- NOTE | 2017-11-19 02:21 | NUR ---
Received pt on vents support, pt stable on current settings, no sob or respiratory distress noted during the shift, alarm is audible and the vent is plugged into red outlet, will continue monitoring per MDS orders. Addendum: 11/19/17 at 0222 by CORRINA VASQUES RT Amended: Links added.
[2017-11-19 04:00] VITALS: BP 111/62
--- NOTE | 2017-11-19 07:27 | NUR ---
TELE/RN NOTES REPORT GIVEN TO AM RN FOR SATISH, ALERT, ORIENTED X1, CAN OPEN EYES, SKIN WARM TO TOUCH, WREPOSITION FOR COMFORT, S/P DEBRIDEMENT ON BILATERAL FOOT IN AM, PATIENT TOLEARTE OPROCEDURE, BED IN LOCK POSITION, WILL CONTINUE TO MONITOR.
[2017-11-19 07:49] LABS: EOSINOPHILS # (AUTO) 0.8 /CMM (0.0-0.7); EOSINOPHILS % (AUTO) 4.4 % (0.0-6.0); HEMATOCRIT 26 % (33-45); HEMOGLOBIN 8.2 g/dL (11.5-14.8); LYMPHOCYTES # (AUTO) 1.3 /CMM (0.8-4.8); LYMPHOCYTES % (AUTO) 7.2 % (20.0-44.0); MEAN CORPUSCULAR HEMOGLOBIN 30 PG (26.0-33.0); MEAN CORPUSCULAR HGB CONC 32 g/dl (31.0-36.0); MEAN CORPUSCULAR VOLUME 92 fL (82-100); MONOCYTES # (AUTO) 0.7 /CMM (0.1-1.30); NEUTROPHILS # (AUTO) 14.8 /CMM (1.8-8.9); NEUTROPHILS % (AUTO) 84.4 % (43.0-81.0); PLATELET COUNT (AUTO) 265 /CMM (150-450); RDW COEFFICIENT OF VARIATION 20.5 (11.5-15.0); RED BLOOD CELL COUNT(AUTO) 2.76 MIL/uL (4.0-5.2); WHITE BLOOD COUNT (AUTO) 17.5 K/uL (4.3-11.0)
[2017-11-19 07:52] LABS: CALCIUM, SERUM 8.8 mg/dL (8.5-10.1); CARBON DIOXIDE 32 mmol/L (21-32); CHLORIDE 102 mmol/L (98-107); GLUCOSE 113 mg/dL (74-106); PHOSPHORUS 3.3 mg/dL (2.5-4.9); POTASSIUM 5.1 mmol/L (3.5-5.1); SODIUM SERUM 140 mmol/L (136-145); UREA NITROGEN, BLOOD 74 mg/dL (7-18)
[2017-11-19 08:00] VITALS: BP 121/63
[2017-11-19] MEDS: VIT B CMPLX 3/FA/VIT C/BIOTIN 1 TAB TABLET PO SCH (08:31)
[2017-11-19] MEDS: DAKINS QUARTER STRENGTH (0.125%) 480 ML BOTTLE TOP SCH (08:31)
[2017-11-19] MEDS: ZINC SULFATE 220 MG CAPSULE PO SCH (08:31)
[2017-11-19] MEDS: HEPARIN SODIUM, PORCINE 5000 UNITS/1 ML VIAL SQ SCH ×2 (08:32→22:01)
[2017-11-19] MEDS: MEROPENEM 500 MG in IV NS 0.9% 50 ML IV SCH ×2 (08:32→21:57)
[2017-11-19] MEDS: LACTOBACILLUS RHAMNOSUS GG 1 EACH CAP.SPRINK PO SCH ×2 (08:32→15:56)
[2017-11-19] MEDS: MUPIROCIN OINT 2% 22 GM TUBE SCH ×2 (08:40→21:59)
[2017-11-19] MEDS: PROSOURCE / PROSTAT (PYXIS) 30 ML UDC GT SCH ×2 (08:40→17:24)
--- NOTE | 2017-11-19 09:40 | NUR ---
RN OPENING NOTES RECEIVED PT. PT IS STABLE AND RESTING IN BED. A/OX3, PT IS NONVERBAL. NO S/S OF RESPIRATORY DISTRESS. PT IS VENT DEPENDENT, SETTINGS IN PLACE. DENIES PAIN AT THIS TIME, WILL F/U. TELE MONITOR READING SR W/ BBB. IV ACCESS LOCATED ON RIGHT UPPER ARM, MIDLINE 20G. HD DONE ON 11/18/16. GT IN PLACE AND PATENT WITH NOVASOURCE FEED AT 40 ML/HR. SAFETY MEASURES IN PLACE,CALL LIGHT WITHIN REACH. WILL CONTINUE TO MONITOR.
[2017-11-19] MEDS: oxyCODONE/APAP (5/325 MG) 1 UDTAB TABLET GT PRN (14:16)
[2017-11-19 16:00] VITALS: BP 98/50
--- NOTE | 2017-11-19 18:27 | NUR ---
RN CLOSING NOTES PT IN BED SLEEPING. NO S/S OF RESPIRATORY DISTRESS/SOB. PER MD PROGRESS NOTE, PERMA CATH TO BE REMOVED AND TEMP LINE PLACE WHEN INFECTION IS UNDER CONTROL. ALL PT NEEDS ANTICIPATED AND MET, SAFETY MEASURES IN PLACE, CALL LIGHT IN REACH. WILL ENDORSE TO BISCUIT MAKER FOR SATISH.
--- NOTE | 2017-11-19 19:30 | NUR ---
RN OPENING NOTES RECEIVED REPORT FROM DAYSHIFT RNGEETA. FOUND Pt AWAKE, RESTING IN BED. Pt IS A/OX3, NON-VERBAL, MOUTHS WORDS. ON VENT, WITH SETTINGS AT: AC 12, TV 400, PEEP 4, FiO2 45%. ON TELE MONITOR, WITH SR. GTF NOVASOURCE @40ML/HR. IV ACCESS ON RAJAN MIDLINE #20G. SAFETY MEASURES IN PLACE. BED LOW, LOCKED, HOB ELEVATED, SIDE RAILS UP, CALL LIGHT AND BED SIDE TABLE WITHIN REACH. WILL CONTINUE TO MONITOR Pt THROUGHOUT THE NIGHT FOR SAFETY.
[2017-11-19 20:00] VITALS: BP 91/45
--- NOTE | 2017-11-19 23:00 | NUR ---
RN NOTES BG 113. NO INSULIN COVERAGE NEEDED AT THIS TIME.
[2017-11-20] VITALS (8 sets, daily range): BP systolic 90–115; BP diastolic 45–59
[2017-11-20] MEDS: BLOOD SUGAR DIAGNOSTIC 1 EACH STRIP IN SCH ×5 (00:26→23:26)
--- NOTE | 2017-11-20 06:00 | NUR ---
RN NOTES BG 101. NO INSULIN COVERAGE NEEDED AT THIS TIME
--- NOTE | 2017-11-20 06:35 | NUR ---
RN CLOSING NOTES NO SIGNIFICANT CHANGES IN Pt's CONDITION. Pt REMAINS STABLE AT THIS TIME. NO S/S OF ACUTE DISTRESS OR SOB NOTED. ALL NEEDS MET AND ATTENDED TO. TELE READING SR W/BBB's 88. SAFETY MEASURES IN PLACE. WILL ENDORSE TO DAYSHIFT RN FOR Pt's SATISH.
[2017-11-20 06:48] LABS: EOSINOPHILS # (AUTO) 0.8 /CMM (0.0-0.7); HEMATOCRIT 23 % (33-45); HEMOGLOBIN 7.5 g/dL (11.5-14.8); LYMPHOCYTES # (AUTO) 1.2 /CMM (0.8-4.8); LYMPHOCYTES % (AUTO) 7.2 % (20.0-44.0); MEAN CORPUSCULAR HEMOGLOBIN 30 PG (26.0-33.0); MEAN CORPUSCULAR HGB CONC 33 g/dl (31.0-36.0); MEAN CORPUSCULAR VOLUME 92 fL (82-100); MONOCYTES # (AUTO) 0.8 /CMM (0.1-1.30); NEUTROPHILS # (AUTO) 13.3 /CMM (1.8-8.9); NEUTROPHILS % (AUTO) 82.8 % (43.0-81.0); PLATELET COUNT (AUTO) 275 /CMM (150-450); RDW COEFFICIENT OF VARIATION 20.5 (11.5-15.0); RED BLOOD CELL COUNT(AUTO) 2.48 MIL/uL (4.0-5.2)
[2017-11-20] MEDS: RENAL NOVASOURCE 1,000 ML BOTTLE GT PRN (06:49)
--- NOTE | 2017-11-20 07:10 | NUR ---
LEAD JAVASCRIPT ENGINEER OPENING NOTES RECV'D REPORT FROM NOC RN. PT AWAKE, NON VERBAL, OBTUNDED. HOB ELEVATED. VENT TRACH NON LABORED RESP. TELE SR. RAJAN MIDLINE DRSG CDI PATENT. INC. SACRAL STAGE IV PICS ON CHART FROM LAST NIGHT WOUND RN TO ROUND. GT NOVASOURCE 40ML /HR NO RESIDUALS. HD TOOK OFF 1300 ML THIS AM. SBP 90'S. PT ON IV ABX FOR PNA. WILL CALL DR. ATKINSON INRRamila LOW HGB 7.5 DILUTED? RCW PERMACATH CDI. BED IN LOW LOCKED POSITION. TURN PT Q2H. SIDERAILS UP X 2. CALL LIGHT IN REACH. WILL CONT TO MONITOR CLOSELY.
[2017-11-20 07:16] LABS: CALCIUM, SERUM 8.8 mg/dL (8.5-10.1); CARBON DIOXIDE 31 mmol/L (21-32); CHLORIDE 101 mmol/L (98-107); CREATININE 3.1 mg/dL (0.6-1.3); GLUCOSE 111 mg/dL (74-106); MAGNESIUM 2.2 mg/dL (1.8-2.4); PHOSPHORUS 3.6 mg/dL (2.5-4.9); POTASSIUM 4.5 mmol/L (3.5-5.1); SODIUM SERUM 139 mmol/L (136-145)
[2017-11-20 07:19] LABS: UREA NITROGEN, BLOOD 89 mg/dL (7-18)
[2017-11-20] MEDS: ZINC SULFATE 220 MG CAPSULE PO SCH (08:24)
[2017-11-20] MEDS: VIT B CMPLX 3/FA/VIT C/BIOTIN 1 TAB TABLET PO SCH (08:24)
[2017-11-20] MEDS: LACTOBACILLUS RHAMNOSUS GG 1 EACH CAP.SPRINK PO SCH ×2 (08:24→17:00)
[2017-11-20] MEDS: MEROPENEM 500 MG in IV NS 0.9% 50 ML IV SCH ×2 (08:24→23:23)
[2017-11-20] MEDS: MUPIROCIN OINT 2% 22 GM TUBE SCH ×2 (08:26→23:26)
[2017-11-20] MEDS: PROSOURCE / PROSTAT (PYXIS) 30 ML UDC GT SCH ×2 (08:26→17:00)
[2017-11-20] MEDS: HEPARIN SODIUM, PORCINE 5000 UNITS/1 ML VIAL SQ SCH (08:26)
--- NOTE | 2017-11-20 09:58 | NUR ---
SPOKE IN PERSON W/ / TERESA REGARDING NAZANIN ORDER. HE SAYS HE WILL CANCEL ORDER GIVEN NORMAL ECHO. PAGED DR. GUIDRY (RENAL) REGARDING HGB 7.5 (RENAL FAILURE, DILAYZED THIS AM DILUTED?). AWAITING CALLBACK.
[2017-11-20] MEDS: oxyCODONE/APAP (5/325 MG) 1 UDTAB TABLET GT PRN (11:14)
--- NOTE | 2017-11-20 15:42 | NUR ---
RCW HD CATH REMOVED BY DR. GUIDRY.
[2017-11-20] MEDS: DAKINS QUARTER STRENGTH (0.125%) 480 ML BOTTLE TOP SCH (17:30)
--- NOTE | 2017-11-20 17:58 | NUR ---
ENVIRONMENTAL SAMPLER CLOSING NOTES NO ACUTE EVENTS DURING SHIFT. TELE SR BBB 80'S. VENT TRACH SETTINGS UNCHANGED. WOUND CARE DONE. BED IN LOW LOCKED POSITION. SIDE RAILS UP X2. CALL LIGHT IN REACH. WILL CONT TO MONITOR. Addendum: 11/20/17 at 1803 by CHACHO ALVES RN MRSA NARES ISOLATION STRICTLY FOLLOWED DURING SHIFT.
--- NOTE | 2017-11-20 19:30 | NUR ---
RN OPENING NOTES RECEIVED REPORT FROM MAYNOR RNDONYA. FOUND Pt AWAKE, RESTING IN BED. Pt IS A/OX3, MOUTHS WORDS. ON VENT, WITH SETTINGS AT: AC 12, TV 400, PEEP 4, FiO2 45%. ON TELE MONITOR, WITH SR. GTF NOVASOURCE @40ML/HR. IV ACCESS ON RAJAN MIDLINE #20G. SAFETY MEASURES IN PLACE. BED LOW, LOCKED, HOB ELEVATED, SIDE RAILS UP, CALL LIGHT AND BED SIDE TABLE WITHIN REACH. WILL CONTINUE TO MONITOR Pt THROUGHOUT THE NIGHT FOR SAFETY.
--- NOTE | 2017-11-20 21:00 | NUR ---
RN ALON CALLED AGA KUMAR ([phone]) TO RECEIVE VERBAL CONSENT THROUGH THE PHONE FOR Pt's DEBRIDEMENT OF VIJAYA HEELS. HERB MCWILLIAMS SIGNED 2ND RN TO CONFIRM VERBAL CONSENT.
[2017-11-21] VITALS (7 sets, daily range): BP systolic 91–115; BP diastolic 54–61
--- NOTE | 2017-11-21 | NUR ---
RN NOTES BG 103. NO INSULIN COVERAGE NEEDED.
--- NOTE | 2017-11-21 06:00 | NUR ---
RN NOTES BG 120. NO INSULIN COVERAGE NEEDED.
--- NOTE | 2017-11-21 06:35 | NUR ---
RN CLOSING NOTES NO SIGNIFICANT CHANGES IN Pt's CONDITION THROUGHOUT THE NIGHT. Pt REMAINS STABLE AT THIS TIME. NO S/S OF ACUTE DISTRESS OR SOB NOTED DURING SHIFT. ALL NEEDS MET AND ATTENDED TO. SAFETY MEASURES IN PLACE. TELE READING SR WITH BBB. WILL ENDORSE TO DAYSHIFT RN FOR Pt's SATISH.
[2017-11-21 06:39] LABS: EOSINOPHILS # (AUTO) 0.6 /CMM (0.0-0.7); EOSINOPHILS % (AUTO) 3.5 % (0.0-6.0); HEMATOCRIT 26 % (33-45); HEMOGLOBIN 8.4 g/dL (11.5-14.8); LYMPHOCYTES # (AUTO) 1.3 /CMM (0.8-4.8); LYMPHOCYTES % (AUTO) 7.8 % (20.0-44.0); MEAN CORPUSCULAR HEMOGLOBIN 30 PG (26.0-33.0); MEAN CORPUSCULAR HGB CONC 33 g/dl (31.0-36.0); MEAN CORPUSCULAR VOLUME 92 fL (82-100); MONOCYTES # (AUTO) 0.9 /CMM (0.1-1.30); MONOCYTES % (AUTO) 5.1 % (2.0-12.0); NEUTROPHILS % (AUTO) 83.6 % (43.0-81.0); PLATELET COUNT (AUTO) 276 /CMM (150-450); RDW COEFFICIENT OF VARIATION 20.4 (11.5-15.0); RED BLOOD CELL COUNT(AUTO) 2.79 MIL/uL (4.0-5.2); WHITE BLOOD COUNT (AUTO) 16.8 K/uL (4.3-11.0)
[2017-11-21] MEDS: BLOOD SUGAR DIAGNOSTIC 1 EACH STRIP IN SCH ×3 (06:58→17:36)
[2017-11-21 07:02] LABS: CALCIUM, SERUM 8.7 mg/dL (8.5-10.1); CARBON DIOXIDE 32 mmol/L (21-32); CHLORIDE 101 mmol/L (98-107); CREATININE 3.3 mg/dL (0.6-1.3); GLUCOSE 116 mg/dL (74-106); MAGNESIUM 2.1 mg/dL (1.8-2.4); PHOSPHORUS 4.2 mg/dL (2.5-4.9); SODIUM SERUM 141 mmol/L (136-145)
[2017-11-21 07:03] LABS: ALBUMIN 2.1 g/dL (3.4-5.0); BILIRUBIN,DIRECT 0.2 mg/dL (0.0-0.2); BILIRUBIN,TOTAL 0.6 mg/dL (0.2-1.0); TOTAL PROTEIN, SERUM 8.1 g/dL (6.4-8.2)
[2017-11-21 07:04] LABS: UREA NITROGEN, BLOOD 83 mg/dL (7-18)
--- NOTE | 2017-11-21 07:35 | NUR ---
DEVELOPMENT PROFESSIONAL OPENING NOTE PATIENT IS ALERT AND ORIENTED x3. MOUTHS WORDS. ON ISOLATION FOR MRSA NARES, TREATMENT IN PLACE. TELE MONITOR ON SR-77 WITH BBB. BEDREST AT THIS TIME. HAS WOUND TREATMENT TO BE DONE THROUGHOUT THE SHIFT. NO SOB OR DISTRESS NOTED. NO FACIAL GRIMACING NOTED FOR PAIN. ON MECH VENT AT THIS TIME. RAJAN MIDLINE INTACT AND PATENT NO REDNESS OR SWELLING NOTED, FLUSHES WELL. BLOOD SUGARS TO BE MONITORED THROUGHOUT SHIFT. PER LOSS PREVENTION DETECTIVE NURSE HD PERMACATH REMOVED AND WILL BE REPLACED WHEN INFECTION IS UNDER CONTROL. WILL HAVE BILATERAL HEELS WOUND DEBRIDEMENT WITH DR. JEFFERSON. WILL CONTINUE TO MONITOR THROUGHOUT SHIFT.
--- NOTE | 2017-11-21 08:21 | NUR ---
RT PATIENT RECEIVED ON MECHANICAL VENTILATION. PATIENT IS AWAKE/ALERT. SUCTION DONE, TRACH SECURED AND PATENT. ADEQUATE VOLUMES RECEIVED. NO SOB NOTED. ALARMS ON AND AUDIBLE. WILL MONITOR T/O SHIFT. Addendum: 11/21/17 at 0822 by WES MYERS RT Amended: Links added.
[2017-11-21] MEDS: MEROPENEM 500 MG in IV NS 0.9% 50 ML IV SCH ×2 (09:03→21:20)
[2017-11-21] MEDS: PROSOURCE / PROSTAT (PYXIS) 30 ML UDC GT SCH ×2 (09:06→17:36)
[2017-11-21] MEDS: RENAL NOVASOURCE 1,000 ML BOTTLE GT PRN (09:06)
[2017-11-21] MEDS: ZINC SULFATE 220 MG CAPSULE PO SCH (09:06)
[2017-11-21] MEDS: VIT B CMPLX 3/FA/VIT C/BIOTIN 1 TAB TABLET PO SCH (09:06)
[2017-11-21] MEDS: LACTOBACILLUS RHAMNOSUS GG 1 EACH CAP.SPRINK PO SCH ×2 (09:06→17:36)
[2017-11-21] MEDS: MUPIROCIN OINT 2% 22 GM TUBE SCH ×2 (09:07→21:30)
[2017-11-21] MEDS: DAKINS QUARTER STRENGTH (0.125%) 480 ML BOTTLE TOP SCH (09:07)
[2017-11-21] MEDS: ACETAMINOPHEN 325 MG TABLET PO PRN (14:32)
--- NOTE | 2017-11-21 14:45 | NUR ---
RN NOTE PATIENT REQUESTING FOR TYLENOL. TYLENOL GIVEN, WILL REASSESS AND WILL MONITOR PATIENT
--- NOTE | 2017-11-21 18:24 | NUR ---
DOUBLE ENDING MACHINE OPERATOR CLOSING NOTE PATIENT IS ALERT AND ORIENTED x3, ABLE TO MOUTH WORDS. NO FACIAL GRIMACING NOTED FOR PAIN. NO SOB OR DISTRESS NOTED. CALL LIGHT WITHIN REACH AT ALL TIMES. SAFETY MEASURES IMPLEMENTED. ALL DUE MEDICATIONS GIVEN VIA G-TUBE. G-TUBE PATENT AND FLUSHES WELL. WOUND DRESSINGS CHANGED. S/P WOUND DEBRIDEMENT ON BILATERAL HEELS WITH DR. SHABAZZ. RAJAN MIDLINE INTACT AND PATENT NO REDNESS OR SWELLING NOTED. HAS LABS TOMORROW IN THE MORNING. TYLENOL GIVEN ONCE THROUGHOUT SHIFT. WILL ENDORSE TO PICKING CREW SUPERVISOR FOR SATISH
--- NOTE | 2017-11-21 20:00 | NUR ---
tele/rn opening notes PATIENT IS IN BED, RESTING COMFORTABLY IN BED, HOB ELEVATED, SKIN WARM TO TOUCH,.ON VENT WITH PRESCRIBEDS SETTING, TELE ON SR WITH PVC, INCONTINENT , BED REST WITH WOUND CARE ON SACRAL AND BILATERAL HEELS, GTUBE FEEDING AT 40CC/HR, WILL CONTINUE TO MONITOR, RECEIVED REPORT FROM AM RN FOR SATISH. BED IN LOCK POSITION.
[2017-11-21] MEDS: oxyCODONE/APAP (5/325 MG) 1 UDTAB TABLET GT PRN (23:38)
--- NOTE | 2017-11-21 23:39 | NUR ---
TELE/RN NOTES PATIENT REPORTED PAIN GRIMACE AND GUARDING REQUESTED OXYCODONE W/ ACETAMINOPHEN FOR MODERATE PAIN. WILL MONITOR EFFECTIVENESS.
[2017-11-22] VITALS: BP 122/66
[2017-11-22] MEDS: BLOOD SUGAR DIAGNOSTIC 1 EACH STRIP IN SCH ×4 (00:07→18:35)
[2017-11-22 04:00] VITALS: BP 108/64
[2017-11-22 06:34] LABS: BASOPHILS % (AUTO) 0.2 % (0.0-2.0); EOSINOPHILS # (AUTO) 0.7 /CMM (0.0-0.7); EOSINOPHILS % (AUTO) 4.9 % (0.0-6.0); HEMATOCRIT 23 % (33-45); HEMOGLOBIN 7.5 g/dL (11.5-14.8); LYMPHOCYTES # (AUTO) 1.1 /CMM (0.8-4.8); LYMPHOCYTES % (AUTO) 7.4 % (20.0-44.0); MEAN CORPUSCULAR HEMOGLOBIN 30 PG (26.0-33.0); MEAN CORPUSCULAR HGB CONC 33 g/dl (31.0-36.0); MEAN CORPUSCULAR VOLUME 91 fL (82-100); MONOCYTES # (AUTO) 0.8 /CMM (0.1-1.30); MONOCYTES % (AUTO) 5.3 % (2.0-12.0); NEUTROPHILS % (AUTO) 82.2 % (43.0-81.0); PLATELET COUNT (AUTO) 270 /CMM (150-450); RDW COEFFICIENT OF VARIATION 20.4 (11.5-15.0); RED BLOOD CELL COUNT(AUTO) 2.47 MIL/uL (4.0-5.2)
[2017-11-22] MEDS: RENAL NOVASOURCE 1,000 ML BOTTLE GT PRN (06:38)
[2017-11-22 06:39] LABS: WHITE BLOOD COUNT (AUTO) 14.6 K/uL (4.3-11.0)
--- NOTE | 2017-11-22 06:49 | NUR ---
TELE/RN NOTES PATIENT IN BED, HOB ELEVATED, ON MECHANICAL VENT, RESTING COMFORTABLY IN BED, REPOSITION AND TURNED, SKIN WARM TO TOUCH, PROVIDED WARM BLANKET. WILL ENDORSE TO AM RN FOR SATISH. SUCTION NEEDED. BLOOD SUGAR CHECK,
[2017-11-22 07:17] LABS: CARBON DIOXIDE 31 mmol/L (21-32); CHLORIDE 98 mmol/L (98-107); CREATININE 3.9 mg/dL (0.6-1.3); GLUCOSE 83 mg/dL (74-106); SODIUM SERUM 139 mmol/L (136-145)
[2017-11-22 07:18] LABS: MAGNESIUM 2.3 mg/dL (1.8-2.4); PHOSPHORUS 5.6 mg/dL (2.5-4.9)
[2017-11-22 07:22] LABS: UREA NITROGEN, BLOOD 111 mg/dL (7-18)
--- NOTE | 2017-11-22 07:30 | NUR ---
MUSICAL STRING MAKER NOTES PT IN BED, AWAKE, ALERT, NOT IN DISTRESS, RESPIRATIONS NORMAL, NO SIGN OF PAIN OR DISTRESS, GT FEEDING INFUSING WELL, VENT IN PLACE, CALL LIGHT WITHIN REACH, ISOLATION PRECAUTIONS OBSERVED, REPOSITIONED FOR COMFORT AND CIRCULATION.
[2017-11-22 08:00] VITALS: BP 101/67
[2017-11-22] MEDS: MUPIROCIN OINT 2% 22 GM TUBE SCH ×2 (08:34→21:00)
[2017-11-22] MEDS: LACTOBACILLUS RHAMNOSUS GG 1 EACH CAP.SPRINK PO SCH ×2 (08:34→17:29)
[2017-11-22] MEDS: VIT B CMPLX 3/FA/VIT C/BIOTIN 1 TAB TABLET PO SCH (08:34)
[2017-11-22] MEDS: ZINC SULFATE 220 MG CAPSULE PO SCH (08:35)
[2017-11-22] MEDS: MEROPENEM 500 MG in IV NS 0.9% 50 ML IV SCH (08:36)
[2017-11-22] MEDS: PROSOURCE / PROSTAT (PYXIS) 30 ML UDC GT SCH ×2 (08:36→17:29)
[2017-11-22] MEDS: DAKINS QUARTER STRENGTH (0.125%) 480 ML BOTTLE TOP SCH (15:16)
[2017-11-22 15:58] VITALS: BP 100/58
--- NOTE | 2017-11-22 18:30 | NUR ---
SHEARING MACHINE FEEDER NOTES PT IN BED, AWAKE AND ALERT, NO SIGN OF PAIN OR DISTRESS, VENT IN PLACE, GT FEEDING INFUSING WELL, TOLERATING WELL, BLOOD SUGAR CHECKED, NO S/S OF HYPO OR HYPERGLYCEMIA NOTED, PLAN TO DIALYSIS CATH INSERTION BY DR CLAROS, PT AWARE, CONSENT GIVEN BY PT AND FRIEND AGA, SKIN TREATMENTS DONE, TURNED AND REPOSITIONED Q2 HRS, PM CARE RENDERED, ALL NEEDS ATTENDED.
--- NOTE | 2017-11-22 19:00 | NUR ---
PT RCVD ON [facility] VENT WITH NOTED SETTINGS. VENT ALARM WORKING AND AUDIBLE, AVIATION PROJECT ENGINEER CUFF CHECKED, VENT PLUGGED INTO RED OUTLET. SUCTIONED SMALL AMOUNT OF PALE YELLOW SECRETIONS. BILATERAL BREATH SOUNDS NOTED. NO RESPIRATORY DISTRESS NOTED AT THIS TIME. AMBU BAG AT BEDSIDE, WILL CONTINUE TO MONITOR THE PATIENT.
--- NOTE | 2017-11-22 19:30 | NUR ---
RECEIVED PATIENT IN BED, PATIENT IS ALERT, UNABLE TO ASSESS ORIENTATION - PATIENT IS TRACH/VENT. VSS, AFEBRILE, NO DISTRESS NOTED, 100% ON MECHANICAL VENTILATION. SAFETY MEASURES IMPLEMENTED. CONTINUE TO MONITOR
[2017-11-22 20:00] VITALS: BP 113/60
[2017-11-23] VITALS: BP 118/64
[2017-11-23] MEDS: INSULIN REGULAR, HUMAN 100 UNIT/ML 3 ML VIAL SQ PRN ×2 (00:12→05:07)
[2017-11-23] MEDS: BLOOD SUGAR DIAGNOSTIC 1 EACH STRIP IN SCH ×4 (00:12→17:45)
[2017-11-23 04:00] VITALS: BP 109/61
[2017-11-23 07:00] LABS: CALCIUM, SERUM 8.7 mg/dL (8.5-10.1); CARBON DIOXIDE 28 mmol/L (21-32); CHLORIDE 99 mmol/L (98-107); CREATININE 4.5 mg/dL (0.6-1.3); GLUCOSE 84 mg/dL (74-106); MAGNESIUM 2.4 mg/dL (1.8-2.4); PHOSPHORUS 6.4 mg/dL (2.5-4.9); POTASSIUM 5.5 mmol/L (3.5-5.1); SODIUM SERUM 139 mmol/L (136-145)
[2017-11-23 07:02] LABS: UREA NITROGEN, BLOOD 129 mg/dL (7-18)
[2017-11-23 07:03] LABS: BASOPHILS % (AUTO) 0.1 % (0.0-2.0); EOSINOPHILS # (AUTO) 0.7 /CMM (0.0-0.7); EOSINOPHILS % (AUTO) 4.8 % (0.0-6.0); HEMATOCRIT 22 % (33-45); HEMOGLOBIN 7.4 g/dL (11.5-14.8); LYMPHOCYTES # (AUTO) 1.2 /CMM (0.8-4.8); LYMPHOCYTES % (AUTO) 8.2 % (20.0-44.0); MEAN CORPUSCULAR HEMOGLOBIN 30 PG (26.0-33.0); MEAN CORPUSCULAR HGB CONC 34 g/dl (31.0-36.0); MEAN CORPUSCULAR VOLUME 89 fL (82-100); MONOCYTES % (AUTO) 7.2 % (2.0-12.0); NEUTROPHILS # (AUTO) 11.2 /CMM (1.8-8.9); NEUTROPHILS % (AUTO) 79.7 % (43.0-81.0); PLATELET COUNT (AUTO) 311 /CMM (150-450); RDW COEFFICIENT OF VARIATION 19.6 (11.5-15.0); RED BLOOD CELL COUNT(AUTO) 2.45 MIL/uL (4.0-5.2); WHITE BLOOD COUNT (AUTO) 14.1 K/uL (4.3-11.0)
--- NOTE | 2017-11-23 07:30 | NUR ---
AUTOTRANSFUSIONIST NOTES PT IN BED, AWAKE, NO FACIAL GRIMACING OR MOANING, BREATHING PATTERN NORMAL, GT FEEDING INFUSING WELL, HOB ELEVATED, TURNED AND REPOSITIONED Q2 HRS, KEPT WARM AND COMFORTABLE.
[2017-11-23 08:00] VITALS: BP 110/60
--- NOTE | 2017-11-23 08:30 | NUR ---
PROPERTY CONSULTANT NOTES PT IN BED, NOT IN DISTRESS, S/P NEW DIALYSIS CATHETER PLACEMENT AT LEFT UPPER CHEST BY DR. CLAROS. DONE AT BEDSIDE, NO BLEEDING AT SITE NOTED, STAT CHEST XRAY ORDERED, NOTED AND CARRIED OUT.
[2017-11-23] MEDS ORDERED: CEFAZOLIN 1 GM in IV NS 0.9% 50 ML IV SCH (09:00)
[2017-11-23] MEDS: LACTOBACILLUS RHAMNOSUS GG 1 EACH CAP.SPRINK PO SCH ×2 (09:30→17:45)
[2017-11-23] MEDS: DAKINS QUARTER STRENGTH (0.125%) 480 ML BOTTLE TOP SCH (09:30)
[2017-11-23] MEDS: ZINC SULFATE 220 MG CAPSULE PO SCH (09:30)
[2017-11-23] MEDS: VIT B CMPLX 3/FA/VIT C/BIOTIN 1 TAB TABLET PO SCH (09:30)
[2017-11-23] MEDS: PROSOURCE / PROSTAT (PYXIS) 30 ML UDC GT SCH ×2 (09:40→17:45)
[2017-11-23] MEDS: MUPIROCIN OINT 2% 22 GM TUBE SCH (12:17)
--- NOTE | 2017-11-23 12:30 | NUR ---
SUPERVISOR COLOR PASTE MIXING NOTES PT IN BED, ASLEEP, EASY TO AROUSE, ALERT, ABLE TO MOUTH WORDS, DENIES PAIN, NOT IN DISTRESS, GT FEEDING INFUSING WELL, NO BLEEDING NOTED AT NEW DIALYSIS CATH AT RIGHT UPPER CHEST, TURNED AND REPOSITIONED Q2 HRS, KEPT WARM AND COMFORTABLE.
[2017-11-23] MEDS ORDERED: VIT1TABL44 PO (13:28)
[2017-11-23] MEDS ORDERED: Zinc Sulfate PO (13:28)
[2017-11-23] MEDS ORDERED: MUPI22OI7 (13:28)
[2017-11-23] MEDS ORDERED: CEFA1FRO IV (13:28)
--- NOTE | 2017-11-23 14:23 | NUR ---
MANHOLE BUILDER NOTES PT IN BED, NO SIGN OF PAIN OR DISTRESS, PT IS ASYMPTOMATIC, MORE THAN 48 HOURS, PER MD MRSA INFECTION IS COLONIZED, WILL CONTINUE TO MONITOR.
[2017-11-23 16:00] VITALS: BP 110/71
--- NOTE | 2017-11-23 17:57 | NUR ---
RT RECEIVED PT ON AC MODE ALARMS ON AND AUDIBLE, TRACH PATENT AND SECURED, AMBUBAG AT BEDSIDE, TXS GIVEN ORDERED NO ADVERSE REACTION NOTED PT STABLE WILL CONTINUE TO MONITOR CLOSELY. Addendum: 11/23/17 at 1758 by RODNEY MIRELES RT Amended: Links added.
--- NOTE | 2017-11-23 18:58 | NUR ---
PIT RECORDER NOTES PT IN BED, RESTING, NOT IN PAIN OR DISTRESS, WOUND TREATMENTS DONE, DRESSING CHANGE DONE, DISCHARGE ORDER GIVEN BY MD, PT INFORMED, REPORT GIVEN TO ORTEGA ESTEVEZ OF [facility], AWAITING TRANSPORT SERVICE, PT IN STABLE CONDITION.
--- NOTE | 2017-11-23 19:30 | NUR ---
MS RN NOTES RECEIVED RESTING COMFORTABLY ON BED,ON TRACH/VENT,SETTINGS TOLERATED WELL.WITH [facility] FOR MEDS.AWAITING TRANSFER TO SNF,REPORT GIVEN BY JOSE VIVAS RN AT THE FACILITY.IN NO ACUTE DISTRESS.
--- NOTE | 2017-11-23 21:00 | NUR ---
MS RN NOTES NET LEAD DEVELOPER BY AMBULANCE VIA ACLS PROTOCOL,IN STABLE CONDITION
== END 2017-11-23 21:00 | DRG 853 ==
LOC: ER 10:39 → TELE 16:52
PROVIDERS: ADMIT Nurse Practitioner Acute Care; ATTEND Nurse Practitioner Acute Care
PROC: 5A1955Z Respiratory Ventilation, Greater than 96 Consecutive Hours (ICD-10-PCS; principal; 2017-11-12)
PROC: 5A1D70Z Performance of Urinary Filtration, Intermittent, Less than 6 Hours Per Day (ICD-10-PCS; 2017-11-14)
PROC: 0QB10ZZ Excision of Sacrum, Open Approach (ICD-10-PCS; 2017-11-15)
PROC: 5A1D70Z Performance of Urinary Filtration, Intermittent, Less than 6 Hours Per Day (ICD-10-PCS; 2017-11-16)
PROC: 05H533Z Insertion of Infusion Device into Right Subclavian Vein, Percutaneous Approach (ICD-10-PCS; 2017-11-16)
PROC: B546ZZA Ultrasonography of Right Subclavian Vein, Guidance (ICD-10-PCS; 2017-11-16)
PROC: B547ZZA Ultrasonography of Left Subclavian Vein, Guidance (ICD-10-PCS; 2017-11-16)
PROC: 0JH63XZ Insertion of Tunneled Vascular Access Device into Chest Subcutaneous Tissue and Fascia, Percutaneous Approach (ICD-10-PCS; 2017-11-16)
PROC: 05H633Z Insertion of Infusion Device into Left Subclavian Vein, Percutaneous Approach (ICD-10-PCS; 2017-11-16)
PROC: 5A1D70Z Performance of Urinary Filtration, Intermittent, Less than 6 Hours Per Day (ICD-10-PCS; 2017-11-17)
PROC: 5A1D70Z Performance of Urinary Filtration, Intermittent, Less than 6 Hours Per Day (ICD-10-PCS; 2017-11-18)
PROC: 5A1D70Z Performance of Urinary Filtration, Intermittent, Less than 6 Hours Per Day (ICD-10-PCS; 2017-11-20)
PROC: 0MBT0ZZ Excision of Left Foot Bursa and Ligament, Open Approach (ICD-10-PCS; 2017-11-21)
PROC: 0HBRXZZ Excision of Toe Nail, External Approach (ICD-10-PCS; 2017-11-21)
PROC: 0MBS0ZZ Excision of Right Foot Bursa and Ligament, Open Approach (ICD-10-PCS; 2017-11-21)
DX: A40.9 Streptococcal sepsis, unspecified (principal); J18.9 Pneumonia, unspecified organism; J96.21 Acute and chronic respiratory failure with hypoxia; R65.21 Severe sepsis with septic shock; E43 Unspecified severe protein-calorie malnutrition; Z99.11 Dependence on respirator [ventilator] status; G93.40 Encephalopathy, unspecified; I96 Gangrene, not elsewhere classified; J44.0 Chronic obstructive pulmonary disease with (acute) lower respiratory infection; I13.2 Hypertensive heart and chronic kidney disease with heart failure and with stage 5 chronic kidney disease, or end stage renal disease; J44.9 Chronic obstructive pulmonary disease, unspecified; L89.154 Pressure ulcer of sacral region, stage 4; N18.6 End stage renal disease; E11.52 Type 2 diabetes mellitus with diabetic peripheral angiopathy with gangrene; R18.8 Other ascites; I38 Endocarditis, valve unspecified; L97.419 Non-pressure chronic ulcer of right heel and midfoot with unspecified severity; L97.429 Non-pressure chronic ulcer of left heel and midfoot with unspecified severity; M46.28 Osteomyelitis of vertebra, sacral and sacrococcygeal region; I50.32 Chronic diastolic (congestive) heart failure; E11.22 Type 2 diabetes mellitus with diabetic chronic kidney disease; Z93.0 Tracheostomy status; R13.10 Dysphagia, unspecified; E11.621 Type 2 diabetes mellitus with foot ulcer; Z99.2 Dependence on renal dialysis; Z88.1 Allergy status to other antibiotic agents; Z88.0 Allergy status to penicillin; I25.10 Atherosclerotic heart disease of native coronary artery without angina pectoris; Z93.1 Gastrostomy status; I11.0 Hypertensive heart disease with heart failure; Z79.4 Long term (current) use of insulin; Z79.899 Other long term (current) drug therapy; E66.9 Obesity, unspecified; Z68.29 Body mass index [BMI] 29.0-29.9, adult; M85.9 Disorder of bone density and structure, unspecified; Z95.1 Presence of aortocoronary bypass graft; Z87.891 Personal history of nicotine dependence; Y95 Nosocomial condition; K74.60 Unspecified cirrhosis of liver; K76.0 Fatty (change of) liver, not elsewhere classified; L89.629 Pressure ulcer of left heel, unspecified stage; L89.619 Pressure ulcer of right heel, unspecified stage; L89.529 Pressure ulcer of left ankle, unspecified stage; I70.0 Atherosclerosis of aorta; K80.20 Calculus of gallbladder without cholecystitis without obstruction; N76.0 Acute vaginitis; D63.1 Anemia in chronic kidney disease; I34.0 Nonrheumatic mitral (valve) insufficiency; I25.2 Old myocardial infarction; B35.1 Tinea unguium; B96.4 Proteus (mirabilis) (morganii) as the cause of diseases classified elsewhere
CPT/HCPCS: 31720; 36415; 36600; 71010-TC; 71045-TC; 71250-TC; 73620-TC; 76705-TC; 80048-TC; 80053-TC; 80061-TC; 80076-TC; 80202-TC; 82962-TC; 83605-TC; 83735-TC; 84100-TC; 84443-TC; 84484-TC; 85025-TC; 85730-TC; 87040-TC; 87070-TC; 87081-TC; 87186-TC; 88305-TC; 88311-TC; 88312-TC; 90935-TC; 93307-TC; 94002-TC; 94003-TC; 94760-TC; 94762-TC; A4216; A4606; A6253; A6402; A6403; A6407; C1750; C1751; J0690; J0885; J1644; J1650; J1815; J1956; J2185; J2543; J3370; J3490; J7030; J7040; J7050; J7060; P9047; Z7610

== ENCOUNTER 2017-11-27 19:08 | Inpatient (IN) | payer MEDICAID, OTHER ==
[~2017-11-27] VITALS: Ht 172.7 cm; Wt 79.4 kg
[~2017-11-27 19:08] MED LIST: ASPI-1169 GT; ATOR40TA GT; B CO1TAB7 GT; CEFA1FRO IV; DOCU50LI GT; EPOE20005 SQ; INSU100I14 SQ; IPRA3AMP IH; LACT1CAP72 PO; METO-295 GT; MIDO5TAB GT; MUPI22OI7; NUT.237L67 GT; PANT40TA4 GT; POLY119P2 GT; RISP1TAB27 GT; Renal Novasource GT; VIT1TABL44 PO; Zinc Sulfate PO
--- NOTE | 2017-11-27 19:15 | NUR ---
TO BED 5 A 71 YO FEMALE PATIENT BIBRA AND PER EMS, PATIENT'S SPO2 "DROPPED TO LOW SPO2 70'S AFTER DIALYSIS." UPON ARRIVAL TO ER, PATIENT IS AAOX2-3, NO SOB. BREATHING EVEN AND UNLABORED. WITH TRACH AND ONGOING BVM BY RT TRANSPORT. PLACED PATIENT ON CARDIAC AND VS MONITORING. RT CRIS AT BEDSIDE TO CONNECT PATIENT TO [facility]. KEPT HOB ELEVATED. SAFETY AND COMFORT MEASURES RENDERED.
--- NOTE | 2017-11-27 19:25 | NUR ---
NEW IV STARTED ON LEFT HAND, 20G. BLOOD DRAWN AND SENT TO LAB.
[2017-11-27 19:28] VITALS: BP 123/72
--- NOTE | 2017-11-27 19:37 | NUR ---
XR AT BEDSIDE.
[2017-11-27 19:51] LABS: TROPONIN I 0.098 ng/mL (0.00-0.056)
[2017-11-27 19:52] LABS: ALANINE AMINOTRANSFERASE 34 U/L (12-78); ALBUMIN 2.2 g/dL (3.4-5.0); ALKALINE PHOSPHATASE 487 U/L (46-116); ASPARTATE AMINOTRANSFERASE 81 U/L (15-37); BILIRUBIN,DIRECT 0.2 mg/dL (0.0-0.2); BILIRUBIN,TOTAL 0.5 mg/dL (0.2-1.0); CALCIUM, SERUM 8.9 mg/dL (8.5-10.1); CARBON DIOXIDE 33 mmol/L (21-32); CHLORIDE 94 mmol/L (98-107); GLUCOSE 98 mg/dL (74-106); SODIUM SERUM 134 mmol/L (136-145); TOTAL PROTEIN, SERUM 8.8 g/dL (6.4-8.2); UREA NITROGEN, BLOOD 43 mg/dL (7-18)
[2017-11-27 19:57] LABS: ABG OXYGEN SATURATION 96.7 % (92.0-98.5); ABG PCO2 44.6 mmHg (35.0-45.0); ABG PH 7.466 (7.350-7.450); ABG PO2 95.3 mmHg (75.0-100.0); AaDO2 138.6 mmHg; COHb 0.9 % (0.5-1.5); MetHb 0.3 % (0.0-1.5); O2Hb 95.5 % (94.0-97.0); PEEP,BG 0 cm H2O; SITE, ABG Right Radial; VENT MODE, BG A/C; VT, ABG 450 mL
[2017-11-27 20:08] LABS: MAGNESIUM 1.9 mg/dL (1.8-2.4); PHOSPHORUS 2.7 mg/dL (2.5-4.9)
[2017-11-27 20:34] LABS: APPEARANCE,URINE Cloudy (CLEAR); BILIRUBIN,URINE MODERATE (NEGATIVE); BLOOD, URINE Moderate Ery/uL (NEGATIVE); COLOR,URINE Brown (YELLOW); KETONES,URINE Trace (NEGATIVE); LEUKOCYTE ESTERASE ,URINE Large (NEGATIVE); NITRITE, URINE Negative (NEGATIVE); PH,URINE 8.5 (5.0-8.0); PROTEIN,URINE >=300 mg/dl (NEGATIVE); UGLUCOSE Negative (NEGATIVE); UROBILINOGEN,URINE 0.2 EU/dL (0.2)
[2017-11-27 20:52] LABS: BASOPHILS % (AUTO) 0.3 % (0.0-2.0); EOSINOPHILS # (AUTO) 0.3 /CMM (0.0-0.7); EOSINOPHILS % (AUTO) 2.4 % (0.0-6.0); HEMATOCRIT 21 % (33-45); LYMPHOCYTES # (AUTO) 0.8 /CMM (0.8-4.8); MEAN CORPUSCULAR HEMOGLOBIN 30 PG (26.0-33.0); MEAN CORPUSCULAR HGB CONC 33 g/dl (31.0-36.0); MEAN CORPUSCULAR VOLUME 90 fL (82-100); MONOCYTES # (AUTO) 0.8 /CMM (0.1-1.30); MONOCYTES % (AUTO) 6.1 % (2.0-12.0); NEUTROPHILS # (AUTO) 11.2 /CMM (1.8-8.9); NEUTROPHILS % (AUTO) 85.2 % (43.0-81.0); PLATELET COUNT (AUTO) 316 /CMM (150-450); RDW COEFFICIENT OF VARIATION 20.3 (11.5-15.0); RED BLOOD CELL COUNT(AUTO) 2.32 MIL/uL (4.0-5.2); WHITE BLOOD COUNT (AUTO) 13.2 K/uL (4.3-11.0)
[2017-11-27] MEDS ORDERED: VANCOMYCIN 1 GM in IV D5W 250 ML IV ONE ×2 (21:00→22:30)
[2017-11-27] MEDS ORDERED: MEROPENEM 500 MG in IV NS 0.9% 50 ML IV ONE (21:00)
[2017-11-27 21:09] LABS: BACTERIA,URINE Moderate /HPF (None Seen); RBC,URINE 21-50 /HPF (0-2); SQUAMOUS EPITHELIAL CELL,UR Few /HPF (None Seen); URINE AMORPHOUS URATE Moderate /HPF (None Seen); WBC,URINE TOO NUMEROUS TO COUN /HPF (0-3)
[2017-11-27 21:22] LABS: INR 1.11 (0.87-1.13)
[2017-11-27] MEDS ORDERED: MEROPENEM 500 MG VIAL IV ONE (21:22)
[2017-11-27 21:26] VITALS: BP 113/60
[2017-11-27] MEDS ORDERED: ASPIRIN 81 MG TAB.CHEW ONE (21:28)
[2017-11-27] MEDS ORDERED: ASPIRIN 81 MG TAB.CHEW GT ONE (21:30)
[2017-11-27] MEDS ORDERED: VANCOMYCIN 1 GM VIAL ONE (21:51)
[2017-11-27] MEDS ORDERED: DEXTROSE 50%-WATER 50 ML DISP.SYRIN IV PRN (22:30)
[2017-11-27] MEDS ORDERED: NEPRO VAN 237 ML CAN GT SCH (22:30)
[2017-11-27] MEDS ORDERED: IV NS 0.9% 1,000 ML BAG IV ONE (22:30)
[2017-11-27] MEDS ORDERED: [UNRECOGNIZED DRUG - OTHER] GT PRN (22:30)
--- NOTE | 2017-11-27 23:36 | NUR ---
Report given to Janet ESTEVEZ for admission and roseann.
[2017-11-28] VITALS (79 sets, daily range): BP systolic 63–118; BP diastolic 30–75
--- NOTE | 2017-11-28 | NUR ---
RN INITIAL NOTES Received pt from ER, Pt alert, does not follows commands, SR, on the vent, lungs congested, some edema, anuric HD pt, all safety measures taken. will cont to monitor .
--- NOTE | 2017-11-28 00:06 | NUR ---
Transferred patient to [facility] bed 112-2 via als protocol, no incident noted.
[2017-11-28] MEDS ORDERED: VANCOMYCIN 1 GM VIAL ONE (00:35)
[2017-11-28] MEDS: BLOOD SUGAR DIAGNOSTIC 1 EACH STRIP IN SCH ×4 (01:38→17:04)
[2017-11-28] MEDS ORDERED: MEROPENEM 1 G in IV NS 0.9% 100 ML IV SCH (05:00)
[2017-11-28] MEDS ORDERED: ATROPINE SULFATE 1 MG/10 ML DISP.SYRIN ONE (05:19)
[2017-11-28] MEDS ORDERED: IV NS 0.9% 1,000 ML IV PRN (05:30)
[2017-11-28] MEDS ORDERED: NOREPINEPHRINE 16 MG in IV D5W 500 ML IV PRN ×3 (05:30→18:00)
[2017-11-28] MEDS ORDERED: MEROPENEM 1 G VIAL IV ONE ×2 (06:15→06:22)
[2017-11-28] MEDS ORDERED: MIDODRINE HCL (5MG) 5 MG TABLET ONE (06:16)
[2017-11-28] MEDS: MIDODRINE HCL (5MG) 5 MG TABLET GT SCH ×3 (06:38→20:53)
--- NOTE | 2017-11-28 06:46 | NUR ---
received pt from [facility], s/p low BP,alert, does not follows commands, SR, on the vent, lungs congested, some edema, anuric HD pt, v/s stable, no pain, 1 units prbc transfused.
[2017-11-28] MEDS ORDERED: PROPOFOL 100 ML ONE (06:57)
--- NOTE | 2017-11-28 07:45 | NUR ---
ICU/RN - Initial Notes Received pt trach to mechanical vent with settings as orders. Pt opens eyes, does not follow commands. SR with BBB 80's on tele monitor. No s/s of pain or discomfort. GT clamped at this time, will follow up on tube feeding order. Pt anuric. Right chest wall HD catheter noted. IV patent and intact with IVF infusing well. PICC line nurse at bedside for PICC line insertion. Safety and comfort measures in place. Will continue to monitor pt closely.
[2017-11-28] MEDS ORDERED: VANCOMYCIN 500 MG in IV D5W 100 ML IV PRN (08:00)
[2017-11-28 08:15] LABS: BASOPHILS % (AUTO) 0.3 % (0.0-2.0); EOSINOPHILS # (AUTO) 0.1 /CMM (0.0-0.7); EOSINOPHILS % (AUTO) 1.3 % (0.0-6.0); HEMATOCRIT 21 % (33-45); LYMPHOCYTES # (AUTO) 0.8 /CMM (0.8-4.8); LYMPHOCYTES % (AUTO) 7.3 % (20.0-44.0); MEAN CORPUSCULAR HEMOGLOBIN 30 PG (26.0-33.0); MEAN CORPUSCULAR HGB CONC 33 g/dl (31.0-36.0); MEAN CORPUSCULAR VOLUME 90 fL (82-100); MONOCYTES # (AUTO) 0.8 /CMM (0.1-1.30); MONOCYTES % (AUTO) 7.5 % (2.0-12.0); NEUTROPHILS # (AUTO) 8.8 /CMM (1.8-8.9); NEUTROPHILS % (AUTO) 83.6 % (43.0-81.0); PLATELET COUNT (AUTO) 283 /CMM (150-450); RDW COEFFICIENT OF VARIATION 18.9 (11.5-15.0); RED BLOOD CELL COUNT(AUTO) 2.33 MIL/uL (4.0-5.2); WHITE BLOOD COUNT (AUTO) 10.5 K/uL (4.3-11.0)
[2017-11-28 08:18] LABS: HEMOGLOBIN 6.9 g/dL (11.5-14.8)
[2017-11-28 08:19] LABS: ALANINE AMINOTRANSFERASE 25 U/L (12-78); ALBUMIN 1.9 g/dL (3.4-5.0); ALKALINE PHOSPHATASE 352 U/L (46-116); ASPARTATE AMINOTRANSFERASE 44 U/L (15-37); BILIRUBIN,TOTAL 0.6 mg/dL (0.2-1.0); CALCIUM, SERUM 8.8 mg/dL (8.5-10.1); CARBON DIOXIDE 32 mmol/L (21-32); CHLORIDE 97 mmol/L (98-107); CREATININE 2.6 mg/dL (0.6-1.3); GLUCOSE 86 mg/dL (74-106); POTASSIUM 4.8 mmol/L (3.5-5.1); SODIUM SERUM 137 mmol/L (136-145); TOTAL PROTEIN, SERUM 7.7 g/dL (6.4-8.2); UREA NITROGEN, BLOOD 47 mg/dL (7-18)
[2017-11-28] MEDS ORDERED: RENAL NOVASOURCE 1,000 ML BOTTLE GT PRN (08:30)
[2017-11-28] MEDS: POLYETHYLENE GLYCOL 3350 17 GM POWD.PACK GT SCH ×2 (08:30→09:10)
[2017-11-28 08:31] LABS: INR 1.1 (0.87-1.13)
[2017-11-28 08:42] LABS: CREATINE KINASE MB 2.5 ng/mL (0-3.6)
[2017-11-28] MEDS ORDERED: PANTOPRAZOLE 40 MG VIAL IV SCH (09:00)
[2017-11-28] MEDS: METOCLOPRAMIDE HCL 10 MG TABLET GT SCH ×2 (09:10→20:53)
[2017-11-28] MEDS: VIT B CMPLX 3/FA/VIT C/BIOTIN 1 TAB TABLET GT SCH (09:10)
[2017-11-28] MEDS: ASPIRIN 81 MG TAB.CHEW GT SCH (09:10)
[2017-11-28] MEDS: risperiDONE LIQUID 1 MG/ML ML GT SCH ×2 (09:10→20:53)
[2017-11-28] MEDS: DOCUSATE SODIUM LIQ 100 MG/10 ML UDC GT SCH ×2 (09:10→20:56)
[2017-11-28] MEDS: PANTOPRAZOLE 40 MG/PACK PACK GT SCH (09:10)
[2017-11-28] MEDS: LACTOBACILLUS RHAMNOSUS GG 1 EACH CAP.SPRINK GT SCH ×2 (09:10→16:42)
[2017-11-28] MEDS: MUPIROCIN OINT 2% 22 GM TUBE SCH ×2 (09:10→20:53)
[2017-11-28] MEDS: ZINC SULFATE 220 MG CAPSULE GT SCH (09:12)
[2017-11-28 10:20] LABS: EOSINOPHILS % (MANUAL) 1 % (0-4); LYMPHOCYTES % (MANUAL) 5 % (16-48); MONOCYTES % (MANUAL) 4 % (0-11.0); NEUTROPHILS % (MANUAL) 90 (42-76)
[2017-11-28] MEDS ORDERED: DAKINS QUARTER STRENGTH (0.125%) 480 ML BOTTLE TOP SCH (11:00)
--- NOTE | 2017-11-28 11:00 | NUR ---
ICU/RN - Notes Skin assessment done and documented with photos taken and placed in chart.
--- NOTE | 2017-11-28 11:21 | NUR ---
WOUND CARE CONSULT: PT PRESENTS WITH STAGE 4 ULCER TO SACRUM, BILATERAL HEEL ESCHARS, RT ANKLE ESCHAR AND LEFT LATERAL ANKLE SCAR, PRESENT ON ADMISSION. FIRST STEP MATTRESS ORDERED. ALL SKIN PROTECTION AND WOUND RECOMMENDATIONS MADE AND DISCUSSED WITH NURSING STAFF. PT IS VENT-DEPENDENT. WILL SEE PRN. BHAGAT IN AGREEMENT WITH PLAN OF CARE. SURGICAL CONSULT RECOMMENDED. Addendum: 11/28/17 at 1122 by THERON ALFONSO WNDNU Amended: Links added.
[2017-11-28] MEDS ORDERED: Z GUARD REMEDY 2 OZ OINT TP PRN (11:30)
[2017-11-28] MEDS: RENAL NOVASOURCE 1,000 ML BOTTLE GT PRN (11:50)
[2017-11-28] MEDS: DAKINS QUARTER STRENGTH (0.125%) 480 ML BOTTLE TOP SCH (12:11)
[2017-11-28] MEDS: Z GUARD REMEDY 2 OZ OINT TP SCH (12:12)
--- NOTE | 2017-11-28 13:20 | NUR ---
ICU/RN - Notes Per Dr Barajas, transfuse unit of PRBC today (transfuse within 4 hours) instead of with Hemodialysis, as Hemodialysis is scheduled for tomorrow. Will carry out.
[2017-11-28] MEDS ORDERED: FEE PK DOSING 1 MIN EA MC ONE ×2 (13:26→13:31)
[2017-11-28] MEDS: ALBUTEROL FS 2.5 MG/0.5 ML VIAL.NEB NEB SCH ×2 (13:30→20:13)
[2017-11-28] MEDS: IPRATROPIUM NEB FS 0.5 MG/2.5 ML AMPUL.NEB NEB SCH ×2 (13:30→20:13)
--- NOTE | 2017-11-28 13:55 | NUR ---
ICU/RN - Notes PRBC transfusion started, will monitor for any s/s of adverse reactions.
[2017-11-28] MEDS: MEROPENEM 1 G in IV NS 0.9% 100 ML IV SCH (15:19)
[2017-11-28] MEDS: PROSOURCE / PROSTAT (PYXIS) 30 ML UDC GT SCH (16:42)
--- NOTE | 2017-11-28 16:50 | NUR ---
ICU/RN - Notes PRBC transfusion completed with no s/s of adverse reactions noted. Vital signs stable.
[2017-11-28] MEDS: IV NS 0.9% 250 ML IV PRN (17:43)
--- NOTE | 2017-11-28 18:15 | NUR ---
ICU/RN - Notes Pt's SBP sustaining in 80s. Levophed gtt started as ordered. Titrated accordingly.
--- NOTE | 2017-11-28 20:16 | NUR ---
Patient is trach/vent dependent, resides at [facility] [phone]. She is bedfast and totally dependent with adl's. Patient goes to [facility] [phone] every MWF @ 2:30pm. Has adequate DME at the facility. Patient will need ambulance transport back to [facility] once discharge. Addendum: 11/28/17 at 2016 by KO ESTRADA RN Amended: Links added.
--- NOTE | 2017-11-28 20:31 | NUR ---
PT RECEIVED TRACHED WITH PORTEX 7 ON VENT. NO RESP DISTRESS NOTED TOLERATING VENT SETTINGS. SX'D FOR MOD AMT OF THICK YELLOW SECRETIONS. VENT ALARMS SET AND AUDIBLE. AMBU BAG AT BEDSIDE. VENT PLUGGED INTO RED OUTLET. WILL CONTINUE TO MONITOR. Addendum: 11/28/17 at 2031 by PJ HIGGINS RT Amended: Links added.
[2017-11-28] MEDS ORDERED: ATORVASTATIN 40 MG TABLET ONE (21:00)
[2017-11-28] MEDS: ATORVASTATIN 40 MG TABLET GT SCH (21:01)
[2017-11-29] VITALS (47 sets, daily range): BP systolic 14–140; BP diastolic 54–78
--- NOTE | 2017-11-29 | NUR ---
CONFIGURATOR NOTES Received patient awake,alert,responding to verbal stimuli attempting to talk.With tracheostomy to the ventilator on AC mode.Moves both arms but cooperative(does not pull tubes).With PEG tube with ongoing feeding (Aspiration Precaution observed).PICC line via RAJAN with Levophed drip infusing for BP support.Comfort care done,needs attended. Remains stable,awakens easily.AM bath done,Sacral decub care done,dressing changed.Tolerated moving and turning. 0600Remains stable.
[2017-11-29] MEDS: BLOOD SUGAR DIAGNOSTIC 1 EACH STRIP IN SCH ×4 (00:20→18:19)
[2017-11-29] MEDS: IPRATROPIUM NEB FS 0.5 MG/2.5 ML AMPUL.NEB NEB SCH ×4 (01:40→20:16)
[2017-11-29] MEDS: ALBUTEROL FS 2.5 MG/0.5 ML VIAL.NEB NEB SCH ×4 (01:40→20:16)
[2017-11-29] MEDS: MEROPENEM 1 G in IV NS 0.9% 100 ML IV SCH ×2 (04:21→16:55)
[2017-11-29 04:58] LABS: BASOPHILS % (AUTO) 0.3 % (0.0-2.0); EOSINOPHILS # (AUTO) 0.4 /CMM (0.0-0.7); EOSINOPHILS % (AUTO) 3.3 % (0.0-6.0); HEMATOCRIT 24 % (33-45); HEMOGLOBIN 8.1 g/dL (11.5-14.8); LYMPHOCYTES % (AUTO) 7.3 % (20.0-44.0); MEAN CORPUSCULAR HEMOGLOBIN 30 PG (26.0-33.0); MEAN CORPUSCULAR HGB CONC 33 g/dl (31.0-36.0); MEAN CORPUSCULAR VOLUME 91 fL (82-100); MONOCYTES % (AUTO) 7.6 % (2.0-12.0); NEUTROPHILS # (AUTO) 10.8 /CMM (1.8-8.9); NEUTROPHILS % (AUTO) 81.5 % (43.0-81.0); PLATELET COUNT (AUTO) 290 /CMM (150-450); RED BLOOD CELL COUNT(AUTO) 2.69 MIL/uL (4.0-5.2); WHITE BLOOD COUNT (AUTO) 13.3 K/uL (4.3-11.0)
[2017-11-29] MEDS: MIDODRINE HCL (5MG) 5 MG TABLET GT SCH ×3 (05:07→21:57)
[2017-11-29 05:23] LABS: CALCIUM, SERUM 8.9 mg/dL (8.5-10.1); CARBON DIOXIDE 32 mmol/L (21-32); CHLORIDE 96 mmol/L (98-107); GLUCOSE 130 mg/dL (74-106); MAGNESIUM 2.3 mg/dL (1.8-2.4); PHOSPHORUS 4.2 mg/dL (2.5-4.9); POTASSIUM 4.8 mmol/L (3.5-5.1); SODIUM SERUM 134 mmol/L (136-145); UREA NITROGEN, BLOOD 67 mg/dL (7-18)
--- NOTE | 2017-11-29 07:20 | NUR ---
REFLOW OPERATOR NOTE RECVD REPORT FROM NOC RN. PT EYES OPEN NONVERBAL MOVES UPPER EXT WEAK. UNABLE TO MOVE LEGS. VENT TRACH 100% O2 SATS NON LABORED RESP 71BPM NSR TELE. RUE PICC LEVOPHED 3MCG INFUSING SBP 118. HEEL DRSG CDI CHANGED BY SURGEONS THIS AM. BED IN LOW LOCKED POSITION. SIDE RAILS UP X 2. NEAR NURSES STATION. WILL CONT TO MONITOR CLOSELY.
--- NOTE | 2017-11-29 07:36 | NUR ---
Clarissa pt received on mechanical vent. Pt trach is secure. Vent is plugged into a red outlet, alarms are set and audible, and BVM is at bedside. Addendum: 11/29/17 at 0738 by MARCELA COREA RT Amended: Links added.
[2017-11-29] MEDS: PANTOPRAZOLE 40 MG/PACK PACK GT SCH (08:44)
[2017-11-29] MEDS: VIT B CMPLX 3/FA/VIT C/BIOTIN 1 TAB TABLET GT SCH (08:44)
[2017-11-29 08:45] LABS: ABG BASE EXCESS 4.9 mmol/L; ABG OXYGEN SATURATION 95.6 % (92.0-98.5); ABG PCO2 42.3 mmHg (35.0-45.0); ABG PH 7.457 (7.350-7.450); ABG PO2 86.3 mmHg (75.0-100.0); AaDO2 150.3 mmHg; COHb 0.7 % (0.5-1.5); MetHb 0.7 % (0.0-1.5); O2Hb 94.3 % (94.0-97.0); PEEP,BG 0 cm H2O; SITE, ABG Right Radial; VENT MODE, BG AC 12 450 40%; VT, ABG 450 mL
[2017-11-29] MEDS: DOCUSATE SODIUM LIQ 100 MG/10 ML UDC GT SCH ×2 (08:45→20:32)
[2017-11-29] MEDS: ASPIRIN 81 MG TAB.CHEW GT SCH (08:45)
[2017-11-29] MEDS: LACTOBACILLUS RHAMNOSUS GG 1 EACH CAP.SPRINK GT SCH ×2 (08:45→16:55)
[2017-11-29] MEDS: POLYETHYLENE GLYCOL 3350 17 GM POWD.PACK GT SCH (08:45)
[2017-11-29] MEDS: risperiDONE LIQUID 1 MG/ML ML GT SCH ×2 (08:45→20:32)
[2017-11-29] MEDS: ZINC SULFATE 220 MG CAPSULE GT SCH (08:45)
[2017-11-29] MEDS: METOCLOPRAMIDE HCL 10 MG TABLET GT SCH ×2 (08:45→20:32)
[2017-11-29] MEDS: DAKINS QUARTER STRENGTH (0.125%) 480 ML BOTTLE TOP SCH (08:46)
[2017-11-29] MEDS: MUPIROCIN OINT 2% 22 GM TUBE SCH ×2 (08:46→20:33)
[2017-11-29] MEDS: PROSOURCE / PROSTAT (PYXIS) 30 ML UDC GT SCH ×2 (08:46→16:55)
[2017-11-29] MEDS: Z GUARD REMEDY 2 OZ OINT TP SCH (08:47)
[2017-11-29] MEDS: CADEXOMER IODINE 40 GM TUBE TP SCH (08:47)
[2017-11-29] MEDS ORDERED: DAKINS QUARTER STRENGTH (0.125%) 480 ML BOTTLE TOP SCH (09:00)
[2017-11-29] MEDS: INSULIN REGULAR, HUMAN 100 UNIT/ML 3 ML VIAL SQ PRN (11:57)
--- NOTE | 2017-11-29 13:05 | NUR ---
RX STATES THAT [facility]ODRINE IS ON BACK ORDER AND THEY ARE ATTEMPTING TO OBTAIN.
--- NOTE | 2017-11-29 15:59 | NUR ---
DIALYSIS IN PROGRESS
[2017-11-29] MEDS: EPOETIN ALFA (20,000 UNIT) 20,000 UNIT/ML VIAL SQ SCH (16:55)
[2017-11-29] MEDS: RENAL NOVASOURCE 1,000 ML BOTTLE GT PRN (17:03)
--- NOTE | 2017-11-29 17:58 | NUR ---
RESEARCH TECHNOLOGIST CLOSING NOTE PT TOLERATED HD AND SUCCESSFULLY WEANED OFF LEVOPHED SBP 112. WOUND CARE PROVIDED. TOLERATING TF NO RESIDUALS. HOB ELEVATED. NSR 90'S. VENT TRACH RESTING COMFORTABLY. BED IN LOW LOCKED POSITION. ISOLATION PRECAUTIONS. SIDE RAILS UP X 2. CALL LIGHT IN REACH. WILL CONT TO MONITOR AND ENDORSE TO NOC RN.
--- NOTE | 2017-11-29 20:00 | NUR ---
PHOSPHORIC ACID SUPERVISOR NOTES RECEIVED PT IN BED, AWAKE. A/O X2-3. ABLE TO FOLLOW SIMPLE COMMANDS. TELE READS SR AT 80 BPM. ON VENT VIA TRACH AT ORDERED SETTINGS, TOLERATING WELL. GT IN PLACE, RUNNING NOVA SOURCE AT 35 ML/HR. NO GASTRIC RESIDUAL. PT IS ANURIC. WOUNDS AT BILATERAL HEELS AND SACRUM. LEFT SC HD CATH, RAJAN PICC, LEFT HAND 20G IV AND RIGHT THUMB 20G IV. HOB ELEVATED, TURNED AND REPOSITIONED. EXTREMITIES OFFLOADED. CALL LIGHT WITHIN REACH. ALL NEEDS MET, PT DENIES PAIN AT THIS TIME.
--- NOTE | 2017-11-29 20:19 | NUR ---
Received pt on vent support on current vent settings,pt stable no respiratory distress noted, no sob noted, alarms are on and audible, ventilator is plugged into red outlet, ambu bag at bedside, will continue monitoring per MDS orders. Addendum: 11/29/17 at 2019 by CORRINA VASQUES RT Amended: Links added.
[2017-11-29] MEDS: ATORVASTATIN 40 MG TABLET GT SCH (21:58)
[2017-11-30] VITALS (21 sets, daily range): BP systolic 98–129; BP diastolic 55–69
[2017-11-30] MEDS: BLOOD SUGAR DIAGNOSTIC 1 EACH STRIP IN SCH ×4 (00:48→16:43)
[2017-11-30] MEDS: ALBUTEROL FS 2.5 MG/0.5 ML VIAL.NEB NEB SCH ×4 (01:47→19:26)
[2017-11-30] MEDS: IPRATROPIUM NEB FS 0.5 MG/2.5 ML AMPUL.NEB NEB SCH ×4 (01:47→19:26)
[2017-11-30] MEDS: MEROPENEM 1 G in IV NS 0.9% 100 ML IV SCH ×2 (04:36→15:28)
[2017-11-30] MEDS: MIDODRINE HCL (5MG) 5 MG TABLET GT SCH ×3 (04:36→21:04)
[2017-11-30] MEDS: IV NS 0.9% 250 ML IV PRN ×2 (05:38→17:43)
[2017-11-30 06:04] LABS: EOSINOPHILS # (AUTO) 0.7 /CMM (0.0-0.7); EOSINOPHILS % (AUTO) 6.8 % (0.0-6.0); HEMATOCRIT 24 % (33-45); HEMOGLOBIN 7.9 g/dL (11.5-14.8); LYMPHOCYTES # (AUTO) 0.8 /CMM (0.8-4.8); LYMPHOCYTES % (AUTO) 7.1 % (20.0-44.0); MEAN CORPUSCULAR HEMOGLOBIN 30 PG (26.0-33.0); MEAN CORPUSCULAR HGB CONC 34 g/dl (31.0-36.0); MEAN CORPUSCULAR VOLUME 90 fL (82-100); MONOCYTES # (AUTO) 0.7 /CMM (0.1-1.30); MONOCYTES % (AUTO) 6.7 % (2.0-12.0); NEUTROPHILS # (AUTO) 8.7 /CMM (1.8-8.9); NEUTROPHILS % (AUTO) 79.4 % (43.0-81.0); PLATELET COUNT (AUTO) 294 /CMM (150-450); RDW COEFFICIENT OF VARIATION 19.1 (11.5-15.0); RED BLOOD CELL COUNT(AUTO) 2.62 MIL/uL (4.0-5.2)
[2017-11-30 06:08] LABS: CALCIUM, SERUM 8.9 mg/dL (8.5-10.1); CARBON DIOXIDE 30 mmol/L (21-32); CHLORIDE 96 mmol/L (98-107); CREATININE 2.8 mg/dL (0.6-1.3); GLUCOSE 98 mg/dL (74-106); POTASSIUM 4.4 mmol/L (3.5-5.1); SODIUM SERUM 135 mmol/L (136-145); UREA NITROGEN, BLOOD 59 mg/dL (7-18)
--- NOTE | 2017-11-30 06:45 | NUR ---
SCHEDULE MANAGER NOTES DR GREEN AT BEDSIDE PERFORM BILATERAL HEEL ASSESSMENT AND DRESSING CHANGE.
--- NOTE | 2017-11-30 07:20 | NUR ---
TUNNEL MAN NOTES RECVD REPORT FROM ENRIQUE RN. AAO2. HOB ELEVATED. VENT TRACH SETTINGS UNCHANGED LAST NIGHT. RUE PICC PATENT DRSG CDI. HEEL AND COCCYX DRSGS CDI. SUBCLAVIAN HD CATH DIALYZED 2.5L YESTERDAY. BED IN LOW LOCKED POSITION. GT FEED 35ML/HR. SIDE RAILS UP X 2. SR 80'S. WILL CONT TO MONITOR CLOSELY.
[2017-11-30] MEDS: VIT B CMPLX 3/FA/VIT C/BIOTIN 1 TAB TABLET GT SCH (08:34)
[2017-11-30] MEDS: ASPIRIN 81 MG TAB.CHEW GT SCH (08:34)
[2017-11-30] MEDS: LACTOBACILLUS RHAMNOSUS GG 1 EACH CAP.SPRINK GT SCH ×2 (08:34→16:41)
[2017-11-30] MEDS: ZINC SULFATE 220 MG CAPSULE GT SCH (08:34)
[2017-11-30] MEDS: risperiDONE LIQUID 1 MG/ML ML GT SCH ×2 (08:35→21:04)
[2017-11-30] MEDS: CADEXOMER IODINE 40 GM TUBE TP SCH (08:35)
[2017-11-30] MEDS: DAKINS QUARTER STRENGTH (0.125%) 480 ML BOTTLE TOP SCH (08:36)
[2017-11-30] MEDS: PROSOURCE / PROSTAT (PYXIS) 30 ML UDC GT SCH ×2 (08:36→16:41)
[2017-11-30] MEDS: Z GUARD REMEDY 2 OZ OINT TP SCH (08:36)
[2017-11-30] MEDS: PANTOPRAZOLE 40 MG/PACK PACK GT SCH (08:36)
[2017-11-30] MEDS: METOCLOPRAMIDE HCL 10 MG TABLET GT SCH ×2 (08:37→21:04)
[2017-11-30] MEDS: POLYETHYLENE GLYCOL 3350 17 GM POWD.PACK GT SCH (08:37)
[2017-11-30] MEDS: DOCUSATE SODIUM LIQ 100 MG/10 ML UDC GT SCH ×2 (08:37→21:02)
[2017-11-30] MEDS: MUPIROCIN OINT 2% 22 GM TUBE SCH ×2 (08:38→21:07)
[2017-11-30 08:52] LABS: ABG BASE EXCESS 7.1 mmol/L; ABG OXYGEN SATURATION 97.3 % (92.0-98.5); ABG PCO2 41.9 mmHg (35.0-45.0); ABG PH 7.488 (7.350-7.450); ABG PO2 114.1 mmHg (75.0-100.0); AaDO2 122.9 mmHg; COHb 0.3 % (0.5-1.5); MetHb 1.5 % (0.0-1.5); O2Hb 95.5 % (94.0-97.0); SITE, ABG Left Radial; VENT MODE, BG AC 40%; VT, ABG 450 mL
--- NOTE | 2017-11-30 11:45 | NUR ---
REPORT CALLED TO PJ ESTEVEZ IN [place].
--- NOTE | 2017-11-30 14:03 | NUR ---
[place] RN NOTES RECEIVED PT ENDORSEMENT BY DONYA ICU NURSE, PT STABLE.
--- NOTE | 2017-11-30 18:40 | NUR ---
TECHNICAL SUPPORT REPRESENTATIVE NOTES NO ACUTE CHANGES NOTED DURING THE SHIFT. ON [facility] VENT SETTING TOLERATING WELL NO SIGN OF RESPIRATORY DISTRESS. HEAD OF BED ELEVATED. SIDE RAILS UP. DUE MEDS GIVEN. PROVIDED COMFORT AND SAFETY. WILL ENDORSE TO THE PM NURSE.
--- NOTE | 2017-11-30 19:26 | NUR ---
PT RCVD ON [facility] VENT WITH NOTED SETTINGS. PT IS AWAKE AND ALERT, VENT PLUGGED INTO RED OUTLET,VENT ALARM IS WORKING AND AUDIBLE. , HAND CLERICAL VERIFIER CUFF CHECKED. SUCTIONED MODERATE AMOUNT OF YELLOW/WHITE THICK SECRETIONS. BREATHING TX GIVEN MD'S ORDERED, NO ADVERSE REACTION NOTED. BILATERAL BS NOTED, NO RESPIRATORY DISTRESS NOTED AT THIS TIME. WILL CONTINUE TO MONITOR THE PT.
--- NOTE | 2017-11-30 20:00 | NUR ---
RN INITIAL NOTES NO ACUTE CHANGES NOTED DURING THE SHIFT. ON [facility] VENT SETTING TOLERATING WELL NO SIGN OF RESPIRATORY DISTRESS. HEAD OF BED ELEVATED. SIDE RAILS UP. ALL SAFETY PRECAUTIONS TAKEN SAFETY. WILL CONTINUE TO MONITOR .
[2017-11-30] MEDS: ATORVASTATIN 40 MG TABLET GT SCH (21:12)
[2017-12-01] VITALS: BP 103/55
[2017-12-01] MEDS: BLOOD SUGAR DIAGNOSTIC 1 EACH STRIP IN SCH ×4 (00:13→17:21)
[2017-12-01] MEDS: ALBUTEROL FS 2.5 MG/0.5 ML VIAL.NEB NEB SCH ×4 (00:59→19:52)
[2017-12-01] MEDS: IPRATROPIUM NEB FS 0.5 MG/2.5 ML AMPUL.NEB NEB SCH ×4 (00:59→19:52)
[2017-12-01 04:00] VITALS: BP_SYST 108; BP_SYST 80; BP_DIAS 32; BP_DIAS 61
[2017-12-01] MEDS: MEROPENEM 1 G in IV NS 0.9% 100 ML IV SCH ×2 (04:31→16:07)
[2017-12-01] MEDS: MIDODRINE HCL (5MG) 5 MG TABLET GT SCH ×3 (04:39→21:04)
--- NOTE | 2017-12-01 06:34 | NUR ---
RN CLOSING NOTES NO ACUTE CHANGES NOTED DURING THE SHIFT. ON [facility] VENT SETTING TOLERATING WELL NO SIGN OF RESPIRATORY DISTRESS. HEAD OF BED ELEVATED. SIDE RAILS UP. ALL SAFETY PRECAUTIONS TAKEN SAFETY. WILL ENDORSE TO AM RN .
--- NOTE | 2017-12-01 07:50 | NUR ---
[place] RN NOTE PATIENT IN BED WITH TRACH TO VENT SETTING ORDERED , AMBU BAG AT HOB AT ALL TIME , WITH GTUBE FEEDING ORDERED KEEP HOB ELEVATED AT ALL TIME , LT UPPER ARM TLC IN PLACE ,WILL CONT TO MONITOR CLOSELY
[2017-12-01 08:00] VITALS: BP_SYST 122; BP_SYST 138; BP_DIAS 66; BP_DIAS 69
[2017-12-01 08:06] LABS: CALCIUM, SERUM 8.6 mg/dL (8.5-10.1); CARBON DIOXIDE 30 mmol/L (21-32); CHLORIDE 95 mmol/L (98-107); CREATININE 3.5 mg/dL (0.6-1.3); GLUCOSE 108 mg/dL (74-106); POTASSIUM 4.9 mmol/L (3.5-5.1); SODIUM SERUM 134 mmol/L (136-145); UREA NITROGEN, BLOOD 75 mg/dL (7-18)
[2017-12-01] MEDS: DOCUSATE SODIUM LIQ 100 MG/10 ML UDC GT SCH ×2 (09:28→21:04)
[2017-12-01] MEDS: POLYETHYLENE GLYCOL 3350 17 GM POWD.PACK GT SCH (09:28)
[2017-12-01] MEDS: ZINC SULFATE 220 MG CAPSULE GT SCH (09:28)
[2017-12-01] MEDS: VIT B CMPLX 3/FA/VIT C/BIOTIN 1 TAB TABLET GT SCH (09:29)
[2017-12-01] MEDS: METOCLOPRAMIDE HCL 10 MG TABLET GT SCH ×2 (09:29→21:04)
[2017-12-01] MEDS: LACTOBACILLUS RHAMNOSUS GG 1 EACH CAP.SPRINK GT SCH ×2 (09:29→16:07)
[2017-12-01] MEDS: ASPIRIN 81 MG TAB.CHEW GT SCH (09:29)
[2017-12-01] MEDS: PANTOPRAZOLE 40 MG/PACK PACK GT SCH (09:29)
[2017-12-01] MEDS: PROSOURCE / PROSTAT (PYXIS) 30 ML UDC GT SCH ×2 (09:30→16:08)
[2017-12-01] MEDS: risperiDONE LIQUID 1 MG/ML ML GT SCH ×2 (09:31→21:04)
[2017-12-01] MEDS: CADEXOMER IODINE 40 GM TUBE TP SCH (09:44)
[2017-12-01] MEDS: Z GUARD REMEDY 2 OZ OINT TP SCH (09:44)
[2017-12-01] MEDS: DAKINS QUARTER STRENGTH (0.125%) 480 ML BOTTLE TOP SCH (09:45)
[2017-12-01 12:00] VITALS: BP 107/50
--- NOTE | 2017-12-01 12:00 | NUR ---
MORTGAGE ORIGINATOR NOTE ALL NEEDS ATTENDED KEEP CLEAN DRY , NOT IN ACUTE DISTRESS, WILL CONT TO MONITOR CLOSELY
--- NOTE | 2017-12-01 14:35 | NUR ---
CASSIDY ESTEVEZ NOTE ON HD AT THIS TIME Addendum: 12/01/17 at 1437 by DARIAN CABRERA RN REGLA LEVEL 46 PER PHARMACY HOLD VANCO DOSE FOR NOW
[2017-12-01 15:01] LABS: BASOPHILS % (AUTO) 0.1 % (0.0-2.0); EOSINOPHILS # (AUTO) 1.4 /CMM (0.0-0.7); EOSINOPHILS % (AUTO) 12.6 % (0.0-6.0); HEMATOCRIT 27 % (33-45); HEMOGLOBIN 8.6 g/dL (11.5-14.8); LYMPHOCYTES # (AUTO) 0.6 /CMM (0.8-4.8); LYMPHOCYTES % (AUTO) 5.7 % (20.0-44.0); MEAN CORPUSCULAR HEMOGLOBIN 30 PG (26.0-33.0); MEAN CORPUSCULAR HGB CONC 33 g/dl (31.0-36.0); MEAN CORPUSCULAR VOLUME 91 fL (82-100); MONOCYTES # (AUTO) 0.7 /CMM (0.1-1.30); MONOCYTES % (AUTO) 6.5 % (2.0-12.0); NEUTROPHILS # (AUTO) 8.4 /CMM (1.8-8.9); NEUTROPHILS % (AUTO) 75.1 % (43.0-81.0); PLATELET COUNT (AUTO) 305 /CMM (150-450); RDW COEFFICIENT OF VARIATION 19.4 (11.5-15.0); RED BLOOD CELL COUNT(AUTO) 2.91 MIL/uL (4.0-5.2); WHITE BLOOD COUNT (AUTO) 11.2 K/uL (4.3-11.0)
[2017-12-01 16:00] VITALS: BP 95/44
--- NOTE | 2017-12-01 16:21 | NUR ---
TELERN NOTE CALLED TO PHARMACY ABOUT EPOGEN X3 STATED THAT WILL BRING SOON , STILL NOT DELIVERED YET, WILL F\U
[2017-12-01] MEDS: EPOETIN ALFA (20,000 UNIT) 20,000 UNIT/ML VIAL SQ SCH (16:28)
--- NOTE | 2017-12-01 16:45 | NUR ---
COAL TRIMMER MACHINE OPERATOR NOTE HD COMPETED 4,5 L OF FLUIDS OUT BP 95/44, WILL CONT TO MONITOR CLOSELY
[2017-12-01] MEDS: RENAL NOVASOURCE 1,000 ML BOTTLE GT PRN (17:22)
--- NOTE | 2017-12-01 19:15 | NUR ---
TELE/RN NOTES RECEIVED PT. LYING IN BED. PT. IS OBTUNDED, VENT/TRACH DEPENDENT. BREATHING EVEN AND UNLABORED. NO SOB, RESPIRATORY DISTRESS OR S/S OF PAIN NOTED AT THIS TIME. PT. WITH EXTERNAL WAREHOUSEMAN PRESENT AND INTACT. CURRENT RHYTHM = SINUS RHYTHM WITH BBB AND PVC'S HR 95. PT. WITH G-TUBE PRESENT, PATENT AND INTACT ADMINISTERING TO PT. NOVASOURCE @ 35 ML/HR. PT. TOLERATING WELL. NO RESIDUAL NOTED. BED LOCKED AND IN LOWEST POSITION, SIDE RAILS UP X3, BED ALARM ON, WILL CONTINUE TO MONITOR.
[2017-12-01 20:00] VITALS: BP 113/62
[2017-12-01] MEDS: ATORVASTATIN 40 MG TABLET GT SCH (21:04)
[2017-12-02] VITALS: BP 104/75
[2017-12-02] MEDS: ALBUTEROL FS 2.5 MG/0.5 ML VIAL.NEB NEB SCH ×4 (00:36→20:13)
[2017-12-02] MEDS: IPRATROPIUM NEB FS 0.5 MG/2.5 ML AMPUL.NEB NEB SCH ×4 (00:36→20:13)
[2017-12-02] MEDS: BLOOD SUGAR DIAGNOSTIC 1 EACH STRIP IN SCH ×4 (00:43→17:02)
[2017-12-02 04:00] VITALS: BP 94/54
[2017-12-02] MEDS: MEROPENEM 1 G in IV NS 0.9% 100 ML IV SCH ×2 (04:59→16:54)
[2017-12-02] MEDS: MIDODRINE HCL (5MG) 5 MG TABLET GT SCH ×3 (04:59→21:34)
--- NOTE | 2017-12-02 06:18 | NUR ---
RECEIVED PT TRACHED ON VENT ON NOTED SETTINGS. NO DISTRESS NOTED. VENT/ ALARMS WELL FUNCTIONING. Q6 TX GIVEN. NO CHANGES NOTED IN PT STATUS. SX PRN SMALL THICK YELLOW SECRETIONS. Addendum: 12/02/17 at 0618 by GERSON MANCILLA RT Amended: Links added.
--- NOTE | 2017-12-02 07:05 | NUR ---
TELE/RN NOTES PT. IS LYING IN BED AWAKE, WITH EYES OPEN. PT. IS OBTUNDED, VENT/TRACH DEPENDENT. BREATHING EVEN AND UNLABORED. NO SOB, RESPIRATORY DISTRESS OR S/S OF PAIN NOTED AT THIS TIME. PT. WITH EXTERNAL AIR ANTISUBMARINE OFFICER PRESENT AND INTACT. CURRENT RHYTHM = SINUS RHYTHM WITH BBB AND PVC'S HR 91. PT. WITH G-TUBE PRESENT, PATENT AND INTACT ADMINISTERING TO PT. NOVASOURCE @ 35 ML/HR. PT. TOLERATING WELL. NO RESIDUAL NOTED AT THIS TIME AND THROUGHOUT SHIFT. ALL PT. NEEDS MET. WOUND CARE PROVIDED ORDERED. PT. TURNED AND REPOSITIONED Q2H AND NEEDED. BED LOCKED AND IN LOWEST POSITION, SIDE RAILS UP X3, BED ALARM ON, WILL ENDORSE TO DAYSHIFT NURSE FOR CONTINUITY OF CARE.
[2017-12-02 08:00] VITALS: BP 99/47
[2017-12-02 08:20] LABS: CALCIUM, SERUM 8.8 mg/dL (8.5-10.1); CARBON DIOXIDE 30 mmol/L (21-32); CHLORIDE 94 mmol/L (98-107); CREATININE 3.3 mg/dL (0.6-1.3); GLUCOSE 103 mg/dL (74-106); POTASSIUM 4.1 mmol/L (3.5-5.1); SODIUM SERUM 133 mmol/L (136-145); UREA NITROGEN, BLOOD 63 mg/dL (7-18)
[2017-12-02] MEDS: LACTOBACILLUS RHAMNOSUS GG 1 EACH CAP.SPRINK GT SCH ×2 (08:49→16:57)
[2017-12-02] MEDS: DOCUSATE SODIUM LIQ 100 MG/10 ML UDC GT SCH ×2 (08:49→21:31)
[2017-12-02] MEDS: risperiDONE LIQUID 1 MG/ML ML GT SCH ×2 (08:49→21:33)
[2017-12-02] MEDS: ASPIRIN 81 MG TAB.CHEW GT SCH (08:50)
[2017-12-02] MEDS: PANTOPRAZOLE 40 MG/PACK PACK GT SCH (08:50)
[2017-12-02] MEDS: METOCLOPRAMIDE HCL 10 MG TABLET GT SCH ×2 (08:50→21:33)
[2017-12-02] MEDS: ZINC SULFATE 220 MG CAPSULE GT SCH (08:50)
[2017-12-02] MEDS: POLYETHYLENE GLYCOL 3350 17 GM POWD.PACK GT SCH (08:51)
[2017-12-02] MEDS: VIT B CMPLX 3/FA/VIT C/BIOTIN 1 TAB TABLET GT SCH (08:51)
[2017-12-02] MEDS: PROSOURCE / PROSTAT (PYXIS) 30 ML UDC GT SCH ×2 (08:52→16:57)
[2017-12-02] MEDS: DAKINS QUARTER STRENGTH (0.125%) 480 ML BOTTLE TOP SCH (08:53)
[2017-12-02] MEDS: CADEXOMER IODINE 40 GM TUBE TP SCH (08:55)
[2017-12-02] MEDS: Z GUARD REMEDY 2 OZ OINT TP SCH (08:57)
[2017-12-02 09:45] LABS: ABG BASE EXCESS 6.1 mmol/L; ABG OXYGEN SATURATION 97.4 % (92.0-98.5); ABG PCO2 40.5 mmHg (35.0-45.0); ABG PH 7.487 (7.350-7.450); ABG PO2 112.2 mmHg (75.0-100.0); AaDO2 126.4 mmHg; COHb 0.1 % (0.5-1.5); MetHb 0.4 % (0.0-1.5); O2Hb 96.9 % (94.0-97.0); PEEP,BG 5 cm H2O; SITE, ABG Right Radial; VENT MODE, BG AC 12 450 40% +5; VT, ABG 450 mL
[2017-12-02 12:00] VITALS: BP 94/45
[2017-12-02 16:00] VITALS: BP 107/62
--- NOTE | 2017-12-02 18:31 | NUR ---
RT NOTE PT IN STABLE CONDITION. PT REMAINS MECHANICALLY VENTILATED VIA TRACH TUBE. SETTINGS PRESCRIBED. ALARMS SET PER PROTOCOL AND AUDIBLE. VENT PLUGGED IN TO RED OUTLET. AMBU BAG AT BED SIDE. NO DISTRESS NOTED. Addendum: 12/02/17 at 1833 by MARY VALENITNO RT Amended: Links added.
--- NOTE | 2017-12-02 19:30 | NUR ---
RN NOTES RECEIVED PATIENT IN BED WITH EYES CLOSED, AROUSABLE. OBTUNDED. NO SIGNS OF ACUTE DISTRESS NOTED. NO SIGNS OF PAIN NOTED. NO SYMPTOMS OF HYPER/HYPOGLYCEMIA. SINUS RHYTHM WITH BBB HR 85. VENT SETTING ORDERED. IV SITE PATENT, INTACT; FLUSHED. HD CATH INTACT; GT SITE PATENT, INTACT; GTF ONGOING ORDERED. HOB RAISED. PATIENT TOLERATING FEEDING. ON CONTACT ISOLATION FOR MRSA NARES. ON LOW BED WITH BILATERAL UPPER SIDE RAILS UP. WILL CONTINUE TO MONITOR.
[2017-12-02 20:00] VITALS: BP 111/59
[2017-12-02] MEDS: ATORVASTATIN 40 MG TABLET GT SCH (21:33)
[2017-12-03] VITALS (9 sets, daily range): BP systolic 97–121; BP diastolic 37–71
[2017-12-03] MEDS: BLOOD SUGAR DIAGNOSTIC 1 EACH STRIP IN SCH ×4 (00:23→18:34)
[2017-12-03] MEDS: IPRATROPIUM NEB FS 0.5 MG/2.5 ML AMPUL.NEB NEB SCH ×4 (01:41→19:10)
[2017-12-03] MEDS: ALBUTEROL FS 2.5 MG/0.5 ML VIAL.NEB NEB SCH ×4 (01:41→19:10)
--- NOTE | 2017-12-03 02:04 | NUR ---
RECEIVED PT TRACHED ON VENT ON DOCUMENTED SETTINGS. NO DISTRESS NOTED. VENT ALARMS SET AND AUDIBLE THROUGH OUT UNIT. Q6 TX GIVEN. NO CHANGES NOTED IN PT STATUS. SX PRN SMALL THICK YELLOW SECRETIONS. MECHANICAL VENTILATOR PLUGGED INTO RED OUTLET. ADELAG AT [facility]. WILL CONTINUE TO MONITOR Addendum: 12/03/17 at 0206 by BK MOREL RT Amended: Links added.
[2017-12-03] MEDS: RENAL NOVASOURCE 1,000 ML BOTTLE GT PRN (04:01)
[2017-12-03] MEDS: MEROPENEM 1 G in IV NS 0.9% 100 ML IV SCH ×2 (04:02→16:37)
[2017-12-03] MEDS: MIDODRINE HCL (5MG) 5 MG TABLET GT SCH ×3 (05:00→21:36)
--- NOTE | 2017-12-03 06:00 | NUR ---
RN NOTES PATIENT IN BED ASLEEP, EASILY AROUSABLE. RESPIRATIONS EVEN. NO SIGNS OF PAIN NOTED. DUE MEDS GIVEN WITH NO ASE NOTED. NEEDS ATTENDED. KEPT CLEAN AND DRY. SAFETY PRECAUTIONS AND COMFORT MEASURES IN PLACE. WILL GIVE REPORT TO DAY SHIFT FOR CONTINUITY OF CARE.
--- NOTE | 2017-12-03 06:45 | NUR ---
RN NOTES DR. STONER AT BEDSIDE FOR BILATERAL HEEL DEBRIDEMENT.
[2017-12-03] MEDS ORDERED: LIDOCAINE 1% INJ 50 ML MDV IJ ONE (07:00)
[2017-12-03 07:39] LABS: EOSINOPHILS # (AUTO) 2.1 /CMM (0.0-0.7); EOSINOPHILS % (AUTO) 18.2 % (0.0-6.0); HEMATOCRIT 24 % (33-45); HEMOGLOBIN 8.4 g/dL (11.5-14.8); LYMPHOCYTES % (AUTO) 8.9 % (20.0-44.0); MEAN CORPUSCULAR HEMOGLOBIN 31 PG (26.0-33.0); MEAN CORPUSCULAR HGB CONC 35 g/dl (31.0-36.0); MEAN CORPUSCULAR VOLUME 88 fL (82-100); MONOCYTES # (AUTO) 1.1 /CMM (0.1-1.30); MONOCYTES % (AUTO) 9.3 % (2.0-12.0); NEUTROPHILS # (AUTO) 7.5 /CMM (1.8-8.9); NEUTROPHILS % (AUTO) 63.6 % (43.0-81.0); PLATELET COUNT (AUTO) 290 /CMM (150-450); RED BLOOD CELL COUNT(AUTO) 2.75 MIL/uL (4.0-5.2); WHITE BLOOD COUNT (AUTO) 11.7 K/uL (4.3-11.0)
[2017-12-03 07:52] LABS: CALCIUM, SERUM 8.1 mg/dL (8.5-10.1); CARBON DIOXIDE 30 mmol/L (21-32); CHLORIDE 94 mmol/L (98-107); CREATININE 3.7 mg/dL (0.6-1.3); GLUCOSE 96 mg/dL (74-106); POTASSIUM 4.6 mmol/L (3.5-5.1); SODIUM SERUM 134 mmol/L (136-145)
[2017-12-03 07:53] LABS: MAGNESIUM 2.2 mg/dL (1.8-2.4); PHOSPHORUS 4.2 mg/dL (2.5-4.9)
[2017-12-03 08:01] LABS: VANCOMYCIN,TROUGH 43 ug/ml (12-20)
[2017-12-03 08:13] LABS: UREA NITROGEN, BLOOD 84 mg/dL (7-18)
[2017-12-03] MEDS: ASPIRIN 81 MG TAB.CHEW GT SCH (09:00)
--- NOTE | 2017-12-03 09:06 | NUR ---
RN NOTE PAGED DR STONER REGARDING THE R HEEL WOUND BLEEDING..
[2017-12-03] MEDS ORDERED: SILVER NITRATE APPLICATOR 1 EA BOX TP STA ×2 (09:22→09:42)
--- NOTE | 2017-12-03 09:45 | NUR ---
RN NOTE DR STONER CAME AND CHANGED DRESSING AND STOPPED BLEEDING. ORDERED H/H CHECK AND TO TRANSFUSE IF H/H/ <8.0, WILL CARRY OUT ORDER, AND MONITOR PT CLOSELY.
[2017-12-03] MEDS: LACTOBACILLUS RHAMNOSUS GG 1 EACH CAP.SPRINK GT SCH ×2 (10:05→16:37)
[2017-12-03] MEDS: VIT B CMPLX 3/FA/VIT C/BIOTIN 1 TAB TABLET GT SCH (10:05)
[2017-12-03] MEDS: POLYETHYLENE GLYCOL 3350 17 GM POWD.PACK GT SCH (10:05)
[2017-12-03] MEDS: METOCLOPRAMIDE HCL 10 MG TABLET GT SCH ×2 (10:05→21:36)
[2017-12-03] MEDS: PROSOURCE / PROSTAT (PYXIS) 30 ML UDC GT SCH ×2 (10:05→16:37)
[2017-12-03] MEDS: risperiDONE LIQUID 1 MG/ML ML GT SCH ×2 (10:05→21:36)
[2017-12-03] MEDS: DOCUSATE SODIUM LIQ 100 MG/10 ML UDC GT SCH ×2 (10:05→21:35)
[2017-12-03] MEDS: PANTOPRAZOLE 40 MG/PACK PACK GT SCH (10:05)
[2017-12-03] MEDS: ZINC SULFATE 220 MG CAPSULE GT SCH (10:05)
[2017-12-03] MEDS: Z GUARD REMEDY 2 OZ OINT TP SCH (10:16)
[2017-12-03] MEDS: GENTAMICIN 0.1% OINT 15 GM TUBE TP SCH ×2 (10:16→16:37)
[2017-12-03] MEDS: DAKINS QUARTER STRENGTH (0.125%) 480 ML BOTTLE TOP SCH (10:17)
[2017-12-03] MEDS: CADEXOMER IODINE 40 GM TUBE TP SCH (10:18)
[2017-12-03 10:22] LABS: HEMOGLOBIN 7.4 g/dL (11.5-14.8)
--- NOTE | 2017-12-03 19:30 | NUR ---
SOUVENIR ASSEMBLER NOTES, RECEIVED PATIENT IN BED, IN VENT SETTINGS NO SOB OR ACUTE DISTRESS NOTED, BILATERAL HEELS COVER WITH DRY AND CLEAN DRESSING AFTER S/P DEBRIDEMENT, NO BLEEDING NOTED AT THIS TIME, CO C/O PAIN OR DISCOMFORT, WITH PICC LINE IN RAJAN INTACT AND PATENT, NOTED DRY AND CLEAN, BED LOCKED AND IN LOWEST POSITION, CALL LIGHT W/I REACH, WILL CONTINUE TO MONITOR CLOSELY.
[2017-12-03] MEDS: ATORVASTATIN 40 MG TABLET GT SCH (21:36)
[2017-12-04] VITALS (9 sets, daily range): BP systolic 107–121; BP diastolic 50–67
[2017-12-04] MEDS: BLOOD SUGAR DIAGNOSTIC 1 EACH STRIP IN SCH ×5 (00:10→23:19)
[2017-12-04] MEDS: INSULIN REGULAR, HUMAN 100 UNIT/ML 3 ML VIAL SQ PRN ×2 (00:35→06:03)
[2017-12-04] MEDS: IPRATROPIUM NEB FS 0.5 MG/2.5 ML AMPUL.NEB NEB SCH ×4 (02:02→20:26)
[2017-12-04] MEDS: ALBUTEROL FS 2.5 MG/0.5 ML VIAL.NEB NEB SCH ×4 (02:02→20:26)
[2017-12-04] MEDS: MEROPENEM 1 G in IV NS 0.9% 100 ML IV SCH ×2 (04:15→16:41)
[2017-12-04] MEDS: RENAL NOVASOURCE 1,000 ML BOTTLE GT PRN (04:15)
[2017-12-04] MEDS: MIDODRINE HCL (5MG) 5 MG TABLET GT SCH ×3 (04:16→20:37)
[2017-12-04 06:50] LABS: BASOPHILS # (AUTO) 0.1 /CMM (0.0-0.2); BASOPHILS % (AUTO) 0.7 % (0.0-2.0); EOSINOPHILS # (AUTO) 2.1 /CMM (0.0-0.7); EOSINOPHILS % (AUTO) 18.9 % (0.0-6.0); HEMATOCRIT 23 % (33-45); HEMOGLOBIN 7.7 g/dL (11.5-14.8); LYMPHOCYTES # (AUTO) 1.2 /CMM (0.8-4.8); LYMPHOCYTES % (AUTO) 10.2 % (20.0-44.0); MEAN CORPUSCULAR HEMOGLOBIN 31 PG (26.0-33.0); MEAN CORPUSCULAR HGB CONC 34 g/dl (31.0-36.0); MEAN CORPUSCULAR VOLUME 90 fL (82-100); MONOCYTES # (AUTO) 1.1 /CMM (0.1-1.30); MONOCYTES % (AUTO) 9.6 % (2.0-12.0); NEUTROPHILS # (AUTO) 6.9 /CMM (1.8-8.9); NEUTROPHILS % (AUTO) 60.6 % (43.0-81.0); PLATELET COUNT (AUTO) 269 /CMM (150-450); RDW COEFFICIENT OF VARIATION 19.3 (11.5-15.0); RED BLOOD CELL COUNT(AUTO) 2.51 MIL/uL (4.0-5.2); WHITE BLOOD COUNT (AUTO) 11.3 K/uL (4.3-11.0)
[2017-12-04 07:07] LABS: CALCIUM, SERUM 8.2 mg/dL (8.5-10.1); CARBON DIOXIDE 33 mmol/L (21-32); CHLORIDE 95 mmol/L (98-107); GLUCOSE 107 mg/dL (74-106); MAGNESIUM 2.2 mg/dL (1.8-2.4); PHOSPHORUS 3.6 mg/dL (2.5-4.9); POTASSIUM 4.4 mmol/L (3.5-5.1); SODIUM SERUM 135 mmol/L (136-145); UREA NITROGEN, BLOOD 72 mg/dL (7-18)
--- NOTE | 2017-12-04 07:40 | NUR ---
CRAB FISHER OPENING NOTE PATIENT IS A/O x2. NO PAIN NOTED. NO SOB OR DISTRESS NOTED. CALL LIGHT WITHIN REACH. SAFETY MEASURES IMPLEMENTED. TELE MONITOR SR 80. HAS VENT AND TRACH PRESENT. BLOOD SUGARS TO BE MONITORED THROUGHOUT SHIFT. WILL CONTINUE TO MONITOR
[2017-12-04] MEDS: ZINC SULFATE 220 MG CAPSULE GT SCH (08:23)
[2017-12-04] MEDS: VIT B CMPLX 3/FA/VIT C/BIOTIN 1 TAB TABLET GT SCH (08:23)
[2017-12-04] MEDS: risperiDONE LIQUID 1 MG/ML ML GT SCH ×2 (08:23→20:36)
[2017-12-04] MEDS: METOCLOPRAMIDE HCL 10 MG TABLET GT SCH ×2 (08:23→20:37)
[2017-12-04] MEDS: POLYETHYLENE GLYCOL 3350 17 GM POWD.PACK GT SCH (08:24)
[2017-12-04] MEDS: PANTOPRAZOLE 40 MG/PACK PACK GT SCH (08:24)
[2017-12-04] MEDS: PROSOURCE / PROSTAT (PYXIS) 30 ML UDC GT SCH ×2 (08:24→16:41)
[2017-12-04] MEDS: LACTOBACILLUS RHAMNOSUS GG 1 EACH CAP.SPRINK GT SCH ×2 (08:24→16:41)
[2017-12-04] MEDS: ASPIRIN 81 MG TAB.CHEW GT SCH (08:24)
[2017-12-04] MEDS: DOCUSATE SODIUM LIQ 100 MG/10 ML UDC GT SCH ×2 (08:24→20:36)
[2017-12-04] MEDS: Z GUARD REMEDY 2 OZ OINT TP SCH (08:25)
[2017-12-04] MEDS: DAKINS QUARTER STRENGTH (0.125%) 480 ML BOTTLE TOP SCH (08:25)
[2017-12-04] MEDS: GENTAMICIN 0.1% OINT 15 GM TUBE TP SCH ×2 (08:26→16:41)
[2017-12-04] MEDS: CADEXOMER IODINE 40 GM TUBE TP SCH (08:26)
[2017-12-04 09:18] LABS: BAND % (MANUAL) 1 % (0.0-5.0); EOSINOPHILS % (MANUAL) 29 % (0-4); LYMPHOCYTES % (MANUAL) 3 % (16-48); MONOCYTES % (MANUAL) 7 % (0-11.0); NEUTROPHILS % (MANUAL) 60 (42-76)
[2017-12-04] MEDS: EPOETIN ALFA (10,000 UNIT) 10,000 UNIT/ML VIAL SQ SCH (14:00)
--- NOTE | 2017-12-04 17:24 | NUR ---
VENT CHANGES BELLOW ORDER: PEEP +5 Addendum: 12/04/17 at 1725 by WILLIAM SMITH RT Amended: Links added.
--- NOTE | 2017-12-04 18:29 | NUR ---
WATER MANGLE TENDER CLOSING NOTE PATIENT IS IN BED COMFORTABLE. NO PAIN AT THIS TIME. NO SOB OR DISTRESS NOTED. CALL LIGHT WITHIN REACH AT ALL TIMES. SAFETY MEASURES IMPLEMENTED. G-TUBE INTACT AND PATENT WITH FEEDING RUNNING AT 35 ML/HR TOLERATING WELL. BLOOD SUGAR MONITORED THROUGHOUT SHIFT. WOUND TREATMENT DONE. PICC LINE INTACT AND PATENT NO REDNESS OR SWELLING NOTED. POSSIBLE HD TOMORROW 12/05. WILL ENDORSE TO PLANT PROTECTION OFFICER NURSE FOR SATISH Addendum: 12/04/17 at 1836 by THERESA FIGUEROA RN TELE MONITOR- 92
--- NOTE | 2017-12-04 19:30 | NUR ---
RN NOTE; RECEIVED PT IN BED TRACH IN PLACE , VENT DEPENDENT. BREATHING EVENLY. NO SOB. NAD .SKIN WARM AND DRY, DRESSING ON BOTH HEELS IN PLACE. CLEAN AND DRY.GT IN PLACE. GTF LULU WELL. HOB ELEVATED. HD CATH INTACT. CALL LIGHT WITHIN REACH. WILL CONT TO MONITOR .
--- NOTE | 2017-12-04 20:26 | NUR ---
RECEIVED PT TRACHED ON VENT WITH NOTED SETTINGS. NO DISTRESS NOTED. VENT ALARMS SET AND AUDIBLE. Q6 TX GIVEN, NO ADVERSE REACTION NOTED. SX MODERATE AMOUNT OF PALE THICK YELLOW SECRETIONS. MECHANICAL VENTILATOR PLUGGED INTO RED OUTLET. WILL CONTINUE TO MONITOR THE PT.
[2017-12-04] MEDS: ATORVASTATIN 40 MG TABLET GT SCH (21:04)
[2017-12-05] VITALS (8 sets, daily range): BP systolic 98–111; BP diastolic 46–61
[2017-12-05] MEDS: ALBUTEROL FS 2.5 MG/0.5 ML VIAL.NEB NEB SCH ×4 (01:58→20:02)
[2017-12-05] MEDS: IPRATROPIUM NEB FS 0.5 MG/2.5 ML AMPUL.NEB NEB SCH ×4 (01:58→20:02)
[2017-12-05] MEDS: MEROPENEM 1 G in IV NS 0.9% 100 ML IV SCH ×2 (03:14→16:09)
[2017-12-05] MEDS: MIDODRINE HCL (5MG) 5 MG TABLET GT SCH ×4 (04:39→21:02)
[2017-12-05] MEDS: BLOOD SUGAR DIAGNOSTIC 1 EACH STRIP IN SCH ×3 (05:20→17:31)
[2017-12-05] MEDS: RENAL NOVASOURCE 1,000 ML BOTTLE GT PRN (05:20)
--- NOTE | 2017-12-05 06:24 | NUR ---
RN NOTE; PT IN BED RESTING COMFORTABLY. BREATHING EVENLY. VENT DEPENDENT. NO ACUTE EVENT DURING THE NIGHT. NO S/S OF PAIN OR DISCOMFORT. REMAINED STABLE. CLEANED AND DRIED , REPOSITIONED ROUTINELY. CALL LIGHT WITHIN REACH. WILL CONT TO MONITOR AND WILL ENDORSE TO AM SHIFT FOR SATISH .
[2017-12-05 06:47] LABS: CALCIUM, SERUM 8.8 mg/dL (8.5-10.1); CARBON DIOXIDE 29 mmol/L (21-32); CHLORIDE 93 mmol/L (98-107); CREATININE 3.6 mg/dL (0.6-1.3); GLUCOSE 107 mg/dL (74-106); POTASSIUM 4.7 mmol/L (3.5-5.1); SODIUM SERUM 132 mmol/L (136-145)
[2017-12-05 06:48] LABS: UREA NITROGEN, BLOOD 93 mg/dL (7-18)
--- NOTE | 2017-12-05 07:00 | NUR ---
RECEIVED PT. THIS AM WITH TRACH AND VENT.SETTINGS UNCHANGED.NO DISTRESS,VS STABLE.
[2017-12-05] MEDS: DOCUSATE SODIUM LIQ 100 MG/10 ML UDC GT SCH ×2 (09:10→20:36)
[2017-12-05] MEDS: risperiDONE LIQUID 1 MG/ML ML GT SCH ×2 (09:10→20:44)
[2017-12-05] MEDS: PROSOURCE / PROSTAT (PYXIS) 30 ML UDC GT SCH ×2 (09:10→18:11)
[2017-12-05] MEDS: VIT B CMPLX 3/FA/VIT C/BIOTIN 1 TAB TABLET GT SCH (09:10)
[2017-12-05] MEDS: ASPIRIN 81 MG TAB.CHEW GT SCH (09:11)
[2017-12-05] MEDS: POLYETHYLENE GLYCOL 3350 17 GM POWD.PACK GT SCH (09:11)
[2017-12-05] MEDS: METOCLOPRAMIDE HCL 10 MG TABLET GT SCH ×2 (09:11→20:36)
[2017-12-05] MEDS: LACTOBACILLUS RHAMNOSUS GG 1 EACH CAP.SPRINK GT SCH ×2 (09:11→18:11)
[2017-12-05] MEDS: PANTOPRAZOLE 40 MG/PACK PACK GT SCH (09:11)
[2017-12-05] MEDS: ZINC SULFATE 220 MG CAPSULE GT SCH (09:12)
[2017-12-05] MEDS: DAKINS QUARTER STRENGTH (0.125%) 480 ML BOTTLE TOP SCH (09:12)
[2017-12-05] MEDS: GENTAMICIN 0.1% OINT 15 GM TUBE TP SCH ×4 (09:13→16:41)
[2017-12-05] MEDS: CADEXOMER IODINE 40 GM TUBE TP SCH (09:14)
[2017-12-05] MEDS: Z GUARD REMEDY 2 OZ OINT TP SCH (09:14)
--- NOTE | 2017-12-05 12:00 | NUR ---
HAD DIALYSIS,NO FLUID REMOVED,VS STABLE,TOLERATED WELL.
--- NOTE | 2017-12-05 13:00 | NUR ---
OINTMENTS AND CREAMS NOT APPLIED TO FEET HAD BLEEDING HEELS YESTERDAY AND DR. [place] TUCKER. DRESSINGS THEN.
--- NOTE | 2017-12-05 14:45 | NUR ---
VADIM IVY PATIENT SERVICE REPRESENTATIVE IN TO SEE PT.
--- NOTE | 2017-12-05 17:49 | NUR ---
RT NOTE PT IN STABLE CONDITION. PT REMAINS MECHANICALLY VENTILATED VIA TRACH TUBE. SETTINGS PRESCRIBED. ALARMS SET PER PROTOCOL AND AUDIBLE. VENT PLUGGED IN TO RED OUTLET. AMBU BAG AT BED SIDE. NO DISTRESS NOTED.
--- NOTE | 2017-12-05 18:00 | NUR ---
NO CHANGE IN STATUS.
--- NOTE | 2017-12-05 20:00 | NUR ---
tele/rn notes PATIENT TEMPERATURE ELEVATED AT 100, CALLED AND ORDERED FOR TYLENOL 650MG PO VIA GTUBE EVERY 4 HOURS PRN., ORDERE CARRIED OUT. PHARMACY VERIFIED
--- NOTE | 2017-12-05 20:34 | NUR ---
Received pt on vent support, pt stable on current settings, no SOB or respiratory distress noted.Ventilator is plugged into red outlet, alarms are audible, ambu bag at bedside. Will continue monitoring per MDS orders. Addendum: 12/05/17 at 2033 by CORRINA VASQUES RT Amended: Links added.
[2017-12-05] MEDS: ACETAMINOPHEN 325 MG TABLET PO PRN (20:36)
[2017-12-05] MEDS: ATORVASTATIN 40 MG TABLET GT SCH (21:55)
--- NOTE | 2017-12-05 22:00 | NUR ---
tele/rn notes CHARGE NURSE AND ABLE BODIED SEAMAN INFORMED REGARDING IV ATB , NOT IN PYXIS, IV ATB TO BE ADMINISTERED
[2017-12-06] VITALS (7 sets, daily range): BP systolic 95–139; BP diastolic 56–65
--- NOTE | 2017-12-06 | NUR ---
TELE/RN NOTES UNABLE TO SCAN ACCUCHECK ACCOUNT NO
[2017-12-06] MEDS ORDERED: CEFTAZIDIME 1 G VIAL ONE (00:03)
[2017-12-06] MEDS: CEFTAZIDIME 1 G in IV D5W 50 ML IV SCH ×2 (00:10→21:13)
[2017-12-06] MEDS: BLOOD SUGAR DIAGNOSTIC 1 EACH STRIP IN SCH ×4 (00:35→17:49)
[2017-12-06] MEDS: ALBUTEROL FS 2.5 MG/0.5 ML VIAL.NEB NEB SCH ×4 (02:06→19:35)
[2017-12-06] MEDS: IPRATROPIUM NEB FS 0.5 MG/2.5 ML AMPUL.NEB NEB SCH ×4 (02:06→19:35)
[2017-12-06] MEDS: MIDODRINE HCL (5MG) 5 MG TABLET GT SCH ×3 (05:00→21:15)
--- NOTE | 2017-12-06 06:00 | NUR ---
TELE/RN CLOSING NOTES PATIENT IN HOB ELEVATED, RESTING COMFORTABLY IN BED, ON VENT, REPOSITION FOR COMFORT, KEEP SKIN INTACT, GTUBE,, RUNNING WITH NO RESIDUALS, MONITOR AND SUCTION NEEDED. WILL CONTINUE TO MONITOR. BED IN LOCK POSITION. PICC LINE ON CARMEN PATENT WITH NO S/S OF INFILTRATION. WILL ENDORSE TO AM RN FOR SATISH.
--- NOTE | 2017-12-06 07:29 | NUR ---
RN NOTES RECEIVED PT FROM CUTTING MACHINE OFFBEARER, VENT/TRACH DEPENDENT, NONVERBAL, TOLERATING VENT SETTINGS NO SOB OR DISTRESS NOTED. SR ON THE TELE MANDA. GTF AT 35ML/HR, TOLERATING WELL. RAJAN PICCLINE INTACT NO IVF. BED LOCKED AND IN LOWEST POSITION, CALL LIGHT WITHIN REACH, SIDE RAILS UPX3, WILL CONT TO MANDA.
[2017-12-06] MEDS: ZINC SULFATE 220 MG CAPSULE GT SCH (08:26)
[2017-12-06] MEDS: POLYETHYLENE GLYCOL 3350 17 GM POWD.PACK GT SCH (08:26)
[2017-12-06] MEDS: DOCUSATE SODIUM LIQ 100 MG/10 ML UDC GT SCH ×2 (08:26→21:15)
[2017-12-06] MEDS: risperiDONE LIQUID 1 MG/ML ML GT SCH ×2 (08:26→21:14)
[2017-12-06] MEDS: VIT B CMPLX 3/FA/VIT C/BIOTIN 1 TAB TABLET GT SCH (08:27)
[2017-12-06] MEDS: LACTOBACILLUS RHAMNOSUS GG 1 EACH CAP.SPRINK GT SCH ×2 (08:27→16:17)
[2017-12-06] MEDS: ASPIRIN 81 MG TAB.CHEW GT SCH (08:27)
[2017-12-06] MEDS: PROSOURCE / PROSTAT (PYXIS) 30 ML UDC GT SCH ×2 (08:28→16:17)
[2017-12-06] MEDS: METOCLOPRAMIDE HCL 10 MG TABLET GT SCH ×2 (08:28→21:14)
[2017-12-06] MEDS: Z GUARD REMEDY 2 OZ OINT TP SCH (08:28)
[2017-12-06] MEDS: PANTOPRAZOLE 40 MG/PACK PACK GT SCH (08:29)
[2017-12-06] MEDS: GENTAMICIN 0.1% OINT 15 GM TUBE TP SCH ×4 (08:30→16:18)
[2017-12-06] MEDS: DAKINS QUARTER STRENGTH (0.125%) 480 ML BOTTLE TOP SCH (08:30)
[2017-12-06] MEDS: CADEXOMER IODINE 40 GM TUBE TP SCH (08:30)
[2017-12-06] MEDS: ACETAMINOPHEN 325 MG TABLET PO PRN (12:14)
[2017-12-06 14:29] LABS: BASOPHILS % (AUTO) 0.3 % (0.0-2.0); EOSINOPHILS # (AUTO) 1.4 /CMM (0.0-0.7); EOSINOPHILS % (AUTO) 10.9 % (0.0-6.0); HEMATOCRIT 22 % (33-45); HEMOGLOBIN 7.3 g/dL (11.5-14.8); LYMPHOCYTES % (AUTO) 7.7 % (20.0-44.0); MEAN CORPUSCULAR HEMOGLOBIN 30 PG (26.0-33.0); MEAN CORPUSCULAR HGB CONC 33 g/dl (31.0-36.0); MEAN CORPUSCULAR VOLUME 89 fL (82-100); MONOCYTES # (AUTO) 1.1 /CMM (0.1-1.30); MONOCYTES % (AUTO) 8.4 % (2.0-12.0); NEUTROPHILS # (AUTO) 9.2 /CMM (1.8-8.9); NEUTROPHILS % (AUTO) 72.7 % (43.0-81.0); PLATELET COUNT (AUTO) 251 /CMM (150-450); RDW COEFFICIENT OF VARIATION 19.1 (11.5-15.0); RED BLOOD CELL COUNT(AUTO) 2.46 MIL/uL (4.0-5.2); WHITE BLOOD COUNT (AUTO) 12.6 K/uL (4.3-11.0)
[2017-12-06] MEDS: EPOETIN ALFA (10,000 UNIT) 10,000 UNIT/ML VIAL SQ SCH (15:14)
[2017-12-06] MEDS: RENAL NOVASOURCE 1,000 ML BOTTLE GT PRN (16:16)
--- NOTE | 2017-12-06 18:24 | NUR ---
RN NOTES PT REMAINED IN STABLE CONDITION THROUGHOUT THE SHIFT, ALL NEEDS MET. TOLERATING VENT SETTINGS. EPOGEN ADMINISTERED. BED LOCKED AND IN LOWEST POSITION, CALL LIGHT WITHIN REACH, SIDE RAILS UPX3, WILL ENDORSE TO ONCOMING SHIFT.
[2017-12-06] MEDS: ATORVASTATIN 40 MG TABLET GT SCH (21:14)
[2017-12-07] VITALS: BP 126/61
--- NOTE | 2017-12-07 00:20 | NUR ---
RN NOTES RECEIEVED PATIENT AND REPORT FROM JHON HILLMAN.
[2017-12-07] MEDS: INSULIN REGULAR, HUMAN 100 UNIT/ML 3 ML VIAL SQ PRN ×3 (00:54→12:18)
[2017-12-07] MEDS: ALBUTEROL FS 2.5 MG/0.5 ML VIAL.NEB NEB SCH ×4 (01:51→19:36)
[2017-12-07] MEDS: IPRATROPIUM NEB FS 0.5 MG/2.5 ML AMPUL.NEB NEB SCH ×4 (01:51→19:36)
[2017-12-07] MEDS: ACETAMINOPHEN 325 MG TABLET PO PRN (03:33)
[2017-12-07 04:00] VITALS: BP 126/61
[2017-12-07] MEDS: MIDODRINE HCL (5MG) 5 MG TABLET GT SCH ×3 (04:09→21:05)
[2017-12-07] MEDS: BLOOD SUGAR DIAGNOSTIC 1 EACH STRIP IN SCH ×5 (05:50→23:07)
[2017-12-07 09:00] VITALS: BP 122/77
[2017-12-07] MEDS: GENTAMICIN 0.1% OINT 15 GM TUBE TP SCH ×4 (09:00→17:32)
[2017-12-07] MEDS: POLYETHYLENE GLYCOL 3350 17 GM POWD.PACK GT SCH (09:16)
[2017-12-07] MEDS: risperiDONE LIQUID 1 MG/ML ML GT SCH ×2 (09:16→21:16)
[2017-12-07] MEDS: ZINC SULFATE 220 MG CAPSULE GT SCH (09:17)
[2017-12-07] MEDS: LACTOBACILLUS RHAMNOSUS GG 1 EACH CAP.SPRINK GT SCH ×2 (09:17→16:54)
[2017-12-07] MEDS: VIT B CMPLX 3/FA/VIT C/BIOTIN 1 TAB TABLET GT SCH (09:17)
[2017-12-07] MEDS: METOCLOPRAMIDE HCL 10 MG TABLET GT SCH ×2 (09:17→21:06)
[2017-12-07] MEDS: ASPIRIN 81 MG TAB.CHEW GT SCH (09:17)
[2017-12-07] MEDS: DOCUSATE SODIUM LIQ 100 MG/10 ML UDC GT SCH ×2 (09:17→21:05)
[2017-12-07] MEDS: DAKINS QUARTER STRENGTH (0.125%) 480 ML BOTTLE TOP SCH (09:18)
[2017-12-07] MEDS: CADEXOMER IODINE 40 GM TUBE TP SCH (09:19)
[2017-12-07] MEDS: Z GUARD REMEDY 2 OZ OINT TP SCH (09:21)
[2017-12-07] MEDS: PANTOPRAZOLE 40 MG/PACK PACK GT SCH (09:33)
[2017-12-07] MEDS: PROSOURCE / PROSTAT (PYXIS) 30 ML UDC GT SCH ×2 (09:33→16:54)
[2017-12-07 12:00] VITALS: BP 93/47
[2017-12-07 17:13] VITALS: BP 95/48
[2017-12-07 17:27] LABS: BASOPHILS # (AUTO) 0.1 /CMM (0.0-0.2); BASOPHILS % (AUTO) 0.3 % (0.0-2.0); HEMATOCRIT 22 % (33-45); HEMOGLOBIN 7.2 g/dL (11.5-14.8); LYMPHOCYTES % (AUTO) 5.8 % (20.0-44.0); MEAN CORPUSCULAR HEMOGLOBIN 30 PG (26.0-33.0); MEAN CORPUSCULAR HGB CONC 33 g/dl (31.0-36.0); MEAN CORPUSCULAR VOLUME 90 fL (82-100); MONOCYTES # (AUTO) 1.5 /CMM (0.1-1.30); MONOCYTES % (AUTO) 8.3 % (2.0-12.0); NEUTROPHILS # (AUTO) 15.2 /CMM (1.8-8.9); NEUTROPHILS % (AUTO) 85.6 % (43.0-81.0); PLATELET COUNT (AUTO) 217 /CMM (150-450); RDW COEFFICIENT OF VARIATION 19.1 (11.5-15.0); WHITE BLOOD COUNT (AUTO) 17.7 K/uL (4.3-11.0)
[2017-12-07 17:49] LABS: CALCIUM, SERUM 8.3 mg/dL (8.5-10.1); CARBON DIOXIDE 31 mmol/L (21-32); CHLORIDE 99 mmol/L (98-107); CREATININE 2.9 mg/dL (0.6-1.3); GLUCOSE 108 mg/dL (74-106); POTASSIUM 3.8 mmol/L (3.5-5.1); SODIUM SERUM 137 mmol/L (136-145); UREA NITROGEN, BLOOD 67 mg/dL (7-18)
--- NOTE | 2017-12-07 18:19 | NUR ---
RT NOTE PT REMAINS IN STABLE CONDITION. PT REMAINS ON VENT ON SETTINGS PRESCRIBED. ALARMS SET PER PROTOCOL AND AUDIBLE. VENT PLUGGED IN TO RED OUTLET. PT AWAKE AND ALERT. AMBU BAG AT BED SIDE. NO DISTRESS NOTED. Addendum: 12/07/17 at 1819 by MARY VALENTINO RT Amended: Links added.
[2017-12-07] MEDS ORDERED: FEE PK DOSING 1 MIN EA MC ONE (18:35)
--- NOTE | 2017-12-07 19:04 | NUR ---
TELE CLOSING NOTES, PATIENT STABLE SR/ST, AO X2, SIDE RAILS UPX4, 02SAT 100% T/V. WOUND CARE PERFORMED TO SACRUM AND BI-LAT HEELS. SUCTIONED PATIENT LUNGS CLEAR TO AUSCULTATION. NO S/S OF DISTRESS OR INFECTION, CALL LIGHT IN REACH WILL ENDORSE TO SUPPORT SERVICES TECH NURSE.
--- NOTE | 2017-12-07 19:36 | NUR ---
RCVD PT ON VENT WITH NOTED SETTINGS. PT IS ALERT AND AWAKE. VENT ALARM WORKING AND AUDIBLE, VENT PLUGGED INTO RED OUTLET, AMBU BAG AT BEDSIDE. SXN MODERATE AMOUNT OF YELLOW THICK SECRETIONS. TX GIVEN PER MD'S ORDERED, NO ADVERSE REACTION NOTED. NO RESPIRATORY DISTRESS NOTED AT THIS TIME . WILL CONTINUE TO MONITOR THE PT.
[2017-12-07 20:00] VITALS: BP 90/80
[2017-12-07] MEDS ORDERED: GENTAMICIN 100 MG in IV D5W 100 ML IV ONE (20:00)
--- NOTE | 2017-12-07 20:10 | NUR ---
RN INITIAL TEL NOTES RECEIVED PT FROM AM SHIFT, VENT/TRACH DEPENDENT, NONVERBAL, TOLERATING VENT SETTINGS NO SOB OR DISTRESS NOTED. SR ON THE TELE MANDA. GTF AT 35ML/HR, TOLERATING WELL. RAJAN PICC LINE INTACT NO IVF. BED LOCKED AND IN LOWEST POSITION, CALL LIGHT WITHIN REACH, SIDE RAILS UPX3, WILL CONT TO MANDA.
[2017-12-07] MEDS: ATORVASTATIN 40 MG TABLET GT SCH (21:05)
[2017-12-07] MEDS: CEFTAZIDIME 1 G in IV D5W 50 ML IV SCH (22:42)
[2017-12-08] VITALS: BP 136/65
[2017-12-08] MEDS: IPRATROPIUM NEB FS 0.5 MG/2.5 ML AMPUL.NEB NEB SCH ×4 (00:34→20:04)
[2017-12-08] MEDS: ALBUTEROL FS 2.5 MG/0.5 ML VIAL.NEB NEB SCH ×4 (00:34→20:04)
[2017-12-08 04:00] VITALS: BP_SYST 107; BP_SYST 121; BP_DIAS 59; BP_DIAS 60
[2017-12-08] MEDS: MIDODRINE HCL (5MG) 5 MG TABLET GT SCH ×3 (05:17→21:06)
[2017-12-08] MEDS: RENAL NOVASOURCE 1,000 ML BOTTLE GT PRN (05:18)
[2017-12-08] MEDS: BLOOD SUGAR DIAGNOSTIC 1 EACH STRIP IN SCH ×3 (05:35→18:15)
--- NOTE | 2017-12-08 06:45 | NUR ---
RN CLOSING TEL NOTES ENDORSED PT FROM AM SHIFT, VENT/TRACH DEPENDENT, NONVERBAL, TOLERATING VENT SETTINGS NO SOB OR DISTRESS NOTED. SR ON THE TELE MANDA. GTF AT 35ML/HR, TOLERATING WELL. RAJAN PICC LINE INTACT NO IVF. BED LOCKED AND IN LOWEST POSITION, CALL LIGHT WITHIN REACH, SIDE RAILS UPX3, WILL CONT TO MANDA, URINALYSIS COLLECTED.
[2017-12-08 07:24] LABS: BASOPHILS % (AUTO) 0.1 % (0.0-2.0); EOSINOPHILS # (AUTO) 0.6 /CMM (0.0-0.7); EOSINOPHILS % (AUTO) 3.5 % (0.0-6.0); HEMATOCRIT 22 % (33-45); HEMOGLOBIN 7.2 g/dL (11.5-14.8); LYMPHOCYTES # (AUTO) 1.1 /CMM (0.8-4.8); LYMPHOCYTES % (AUTO) 6.7 % (20.0-44.0); MEAN CORPUSCULAR HEMOGLOBIN 30 PG (26.0-33.0); MEAN CORPUSCULAR HGB CONC 34 g/dl (31.0-36.0); MEAN CORPUSCULAR VOLUME 90 fL (82-100); MONOCYTES # (AUTO) 1.5 /CMM (0.1-1.30); MONOCYTES % (AUTO) 8.5 % (2.0-12.0); NEUTROPHILS # (AUTO) 13.9 /CMM (1.8-8.9); NEUTROPHILS % (AUTO) 81.2 % (43.0-81.0); PLATELET COUNT (AUTO) 199 /CMM (150-450); RDW COEFFICIENT OF VARIATION 19.2 (11.5-15.0); RED BLOOD CELL COUNT(AUTO) 2.38 MIL/uL (4.0-5.2); WHITE BLOOD COUNT (AUTO) 17.1 K/uL (4.3-11.0)
[2017-12-08 08:00] VITALS: BP_SYST 168; BP_SYST 99; BP_DIAS 51; BP_DIAS 79
[2017-12-08 08:20] LABS: CALCIUM, SERUM 8.5 mg/dL (8.5-10.1); CARBON DIOXIDE 29 mmol/L (21-32); CHLORIDE 99 mmol/L (98-107); CREATININE 3.3 mg/dL (0.6-1.3); GLUCOSE 98 mg/dL (74-106); MAGNESIUM 2.1 mg/dL (1.8-2.4); PHOSPHORUS 3.7 mg/dL (2.5-4.9); POTASSIUM 4.2 mmol/L (3.5-5.1); SODIUM SERUM 136 mmol/L (136-145)
[2017-12-08 08:25] LABS: UREA NITROGEN, BLOOD 84 mg/dL (7-18)
[2017-12-08] MEDS: PROSOURCE / PROSTAT (PYXIS) 30 ML UDC GT SCH ×2 (09:17→18:14)
[2017-12-08] MEDS: risperiDONE LIQUID 1 MG/ML ML GT SCH ×2 (09:18→21:06)
[2017-12-08] MEDS: PANTOPRAZOLE 40 MG/PACK PACK GT SCH (09:18)
[2017-12-08] MEDS: VIT B CMPLX 3/FA/VIT C/BIOTIN 1 TAB TABLET GT SCH (09:18)
[2017-12-08] MEDS: DOCUSATE SODIUM LIQ 100 MG/10 ML UDC GT SCH ×2 (09:18→21:05)
[2017-12-08] MEDS: POLYETHYLENE GLYCOL 3350 17 GM POWD.PACK GT SCH (09:18)
[2017-12-08] MEDS: ASPIRIN 81 MG TAB.CHEW GT SCH (09:18)
[2017-12-08] MEDS: METOCLOPRAMIDE HCL 10 MG TABLET GT SCH ×2 (09:18→21:05)
[2017-12-08] MEDS: LACTOBACILLUS RHAMNOSUS GG 1 EACH CAP.SPRINK GT SCH ×2 (09:18→18:14)
[2017-12-08] MEDS: ZINC SULFATE 220 MG CAPSULE GT SCH (09:18)
[2017-12-08] MEDS: DAKINS QUARTER STRENGTH (0.125%) 480 ML BOTTLE TOP SCH (09:19)
[2017-12-08] MEDS: Z GUARD REMEDY 2 OZ OINT TP SCH (09:20)
[2017-12-08] MEDS: CADEXOMER IODINE 40 GM TUBE TP SCH (09:20)
[2017-12-08] MEDS: GENTAMICIN 0.1% OINT 15 GM TUBE TP SCH ×4 (09:22→18:15)
[2017-12-08 10:20] LABS: APPEARANCE,URINE CLOUDY (CLEAR); BILIRUBIN,URINE 2+ (NEGATIVE); BLOOD, URINE 1+ Ery/uL (NEGATIVE); COLOR,URINE DARK YELLO (YELLOW); KETONES,URINE 1+ (NEGATIVE); LEUKOCYTE ESTERASE ,URINE 1+ (NEGATIVE); NITRITE, URINE POSITIVE (NEGATIVE); PROTEIN,URINE 3+ mg/dl (NEGATIVE); UGLUCOSE NEGATIVE (NEGATIVE)
[2017-12-08 10:38] LABS: BACTERIA,URINE Few /HPF (None Seen); SQUAMOUS EPITHELIAL CELL,UR Few /HPF (None Seen); WBC,URINE 21-50 /HPF (0-3)
[2017-12-08 12:00] VITALS: BP 96/55
--- NOTE | 2017-12-08 12:20 | NUR ---
RT PT TRACH'D INTACT AND SECURED. VENT ALARMS ON AND AUDIBLE, LULU VENT SETTINGS, PLUGGED IN RED OUTLET. BAG & MASK AT BEDSIDE. TX GIVEN LULU WELL NO ADVERSE REACTION. SX THIN YELLOW MODERATE SECRETIONS. NO RESP DISTRESS ATT WILL CONTINUE TO MONITOR
[2017-12-08] MEDS: INSULIN REGULAR, HUMAN 100 UNIT/ML 3 ML VIAL SQ PRN ×2 (12:27→18:23)
[2017-12-08] MEDS: EPOETIN ALFA (10,000 UNIT) 10,000 UNIT/ML VIAL SQ SCH (13:37)
[2017-12-08 16:00] VITALS: BP 96/55
--- NOTE | 2017-12-08 18:42 | NUR ---
NO SOB NOTED. TOLERATING GT FEEDING. TURNED AND REPOSITIONED FOR COMFORT. HAD LARGE SOFT BM TODAY. BLOOD SUGARS MONITORED. TELE SHOWS SR WITH BBB WITH PVC'S. BED LOW AND LOCKED. CALL LIGHT WITHIN REACHED. WILL CONT TO MONITOR.
--- NOTE | 2017-12-08 19:15 | NUR ---
TELE/RN OPENING NOTES PT RECEIVED RESTING COMFORTABLY IN BED. HOB ELEVATED, VENTILATOR SETTINGS NOTED. NO S/S OF DISTRESS NOTED. DENIES PAIN. ON TELE MONITOR SHOWING SINUS RHYTHM WITH BBB AND PVC'S HR=84. RAJAN PICC PATENT AND INTACT. LCW HD CATH NOTED. GT FEEDING RUNNING ORDERED. ISOLATION PRECAUTIONS IMPLEMENTED. BED IN LOW/LOCKED POSITION WITH CALL LIGHT IN REACH. SIDE RAILS UPX2, HEELS ELEVATED. WILL CONTINUE TO MONITOR
[2017-12-08 20:00] VITALS: BP 110/59
[2017-12-08] MEDS: ATORVASTATIN 40 MG TABLET GT SCH (21:06)
--- NOTE | 2017-12-08 21:54 | NUR ---
Received pt on vent support, pt stable on current settings, no SOB or respiratory distress noted.Ventilator is plugged into red outlet, alarms are audible, ambu bag at bedside. Will continue monitoring per MDS orders. Addendum: 12/08/17 at 2154 by CORRINA VASQUES RT Amended: Links added.
[2017-12-08] MEDS: CEFTAZIDIME 1 G in IV D5W 50 ML IV SCH (22:27)
[2017-12-09] VITALS: BP 128/64
[2017-12-09] MEDS: BLOOD SUGAR DIAGNOSTIC 1 EACH STRIP IN SCH ×5 (00:09→23:41)
[2017-12-09] MEDS: INSULIN REGULAR, HUMAN 100 UNIT/ML 3 ML VIAL SQ PRN ×2 (00:16→05:37)
[2017-12-09] MEDS: IPRATROPIUM NEB FS 0.5 MG/2.5 ML AMPUL.NEB NEB SCH ×4 (01:41→20:01)
[2017-12-09] MEDS: ALBUTEROL FS 2.5 MG/0.5 ML VIAL.NEB NEB SCH ×4 (01:41→20:01)
--- NOTE | 2017-12-09 02:24 | NUR ---
TELE/RN NOTES PT NOTED WITH PICC LINE PULLED OUT. DRESSING AND PRESSURE APPLIED, NO BLEEDING NOTED. IV REINSERTED TO LEFT HAND #22. FIELD MARKETING SPECIALIST AWARE.
[2017-12-09 04:00] VITALS: BP 98/48
[2017-12-09] MEDS: RENAL NOVASOURCE 1,000 ML BOTTLE GT PRN (05:33)
[2017-12-09] MEDS: MIDODRINE HCL (5MG) 5 MG TABLET GT SCH ×3 (05:34→20:54)
--- NOTE | 2017-12-09 06:36 | NUR ---
TELE/RN CLOSING NOTES PT WITH EYES CLOSED, EASILY AROUSABLE TO NAME. KEPT HOB ELEVATED AT ALL TIMES. VENTILATOR SETTINGS NOTED. BREATHING EVEN AND UNLABORED. IN NO DISTRESS. SUCTIONED PRN. LEFT HAND IV PATENT AND INTACT. GT FEEDING RUNNING ORDERED. NO RESIDUALS NOTED DURING SHIFT. ON TELE MONITOR SHOWING SINUS RHYTHM WITH BBB AND PVC'S, HR 100. WOUND CARE PROVIDED ORDERED. TURNED/REPOSITIONED Q2H AND HEELS OFFLOADED AT ALL TIMES. ALL DUE MEDS ADMINISTERED. KEPT PT COMFORTABLE DURING SHIFT. ALL NEEDS MET. BED REMAINS IN LOW/LOCKED POSITION WITH CALL LIGHT IN REACH. SIDE RAILS UPX2. WILL ENDORSE TO DAY SHIFT RN SATISH. Addendum: 12/09/17 at 0652 by SAVANAH HERNADEZ RN HD BEGUN AT 0630
--- NOTE | 2017-12-09 07:24 | NUR ---
TRAINING AND DEVELOPMENT DIRECTOR OPENING NOTES RECEIVED PATIENT RESTING COMFORTABLY IN BED, ONGOING DIALYSIS. HOB ELEVATED, VENTILATOR SETTINGS NOTED. NO S/S OF DISTRESS NOTED. NO S/S OF PAIN OR DISCOMFORT. ON TELEMONITOR, SINUS RHYTHM WITH BBB AND PVC'S HR=84. IV SITE INTACT AND PATENT. LEFT CW HD CATH NOTED. GTUBE IN PLACE, FEEDING RUNNING ORDERED. ISOLATION PRECAUTIONS IMPLEMENTED. BED IN LOW/LOCKED POSITION WITH CALL LIGHT IN REACH. SIDE RAILS UPX2, HEELS ELEVATED. WILL CONTINUE TO MONITOR ACCORDINGLY.
[2017-12-09 07:39] LABS: CALCIUM, SERUM 8.4 mg/dL (8.5-10.1); CARBON DIOXIDE 28 mmol/L (21-32); CHLORIDE 99 mmol/L (98-107); CREATININE 3.8 mg/dL (0.6-1.3); GENTAMICIN,RANDOM 2.4 ug/ml (4.0-8.0); GLUCOSE 93 mg/dL (74-106); POTASSIUM 4.3 mmol/L (3.5-5.1); SODIUM SERUM 137 mmol/L (136-145)
[2017-12-09 07:41] LABS: UREA NITROGEN, BLOOD 101 mg/dL (7-18)
[2017-12-09 08:00] VITALS: BP 108/63
--- NOTE | 2017-12-09 09:30 | NUR ---
RN NOTES DIALYSIS DONE, 1300 ML OUTPUT. PATIENT TOLERATED WELL. WILL CONTINUE TO MONITOR ACCORDINGLY
[2017-12-09] MEDS: LACTOBACILLUS RHAMNOSUS GG 1 EACH CAP.SPRINK GT SCH ×2 (09:40→17:51)
[2017-12-09] MEDS: risperiDONE LIQUID 1 MG/ML ML GT SCH ×2 (09:40→20:54)
[2017-12-09] MEDS: DOCUSATE SODIUM LIQ 100 MG/10 ML UDC GT SCH ×2 (09:40→20:53)
[2017-12-09] MEDS: METOCLOPRAMIDE HCL 10 MG TABLET GT SCH ×2 (09:40→20:53)
[2017-12-09] MEDS: ZINC SULFATE 220 MG CAPSULE GT SCH (09:40)
[2017-12-09] MEDS: ASPIRIN 81 MG TAB.CHEW GT SCH (09:40)
[2017-12-09] MEDS: POLYETHYLENE GLYCOL 3350 17 GM POWD.PACK GT SCH (09:40)
[2017-12-09] MEDS: VIT B CMPLX 3/FA/VIT C/BIOTIN 1 TAB TABLET GT SCH (09:40)
[2017-12-09] MEDS: PANTOPRAZOLE 40 MG/PACK PACK GT SCH (09:41)
[2017-12-09] MEDS: DAKINS QUARTER STRENGTH (0.125%) 480 ML BOTTLE TOP SCH (09:47)
[2017-12-09] MEDS: PROSOURCE / PROSTAT (PYXIS) 30 ML UDC GT SCH ×2 (09:47→17:52)
[2017-12-09] MEDS: CADEXOMER IODINE 40 GM TUBE TP SCH (09:48)
[2017-12-09] MEDS: Z GUARD REMEDY 2 OZ OINT TP SCH (09:49)
[2017-12-09] MEDS: GENTAMICIN 0.1% OINT 15 GM TUBE TP SCH ×4 (09:49→17:00)
[2017-12-09 12:00] VITALS: BP 122/66
[2017-12-09 16:00] VITALS: BP 123/69
--- NOTE | 2017-12-09 16:56 | NUR ---
RN NOTES CALLED CARLOS HARRIS REGARDING COLISTIN SENSITIVITY OF 12/03/17. TALKED WITH TELEVISION INSTALLER HELPER, TOSHIA. PER TOSHIA, WILL NOTIFY FLAME GOUGER TOMORROW.
[2017-12-09] MEDS: GENTAMICIN 80 MG in IV D5W 50 ML IV PRN (17:50)
--- NOTE | 2017-12-09 19:30 | NUR ---
RN/TELE NOTES: RECEIVED PT. IN BED A/O X 2. HOB ELEVATED. NO FACIAL GRIMACES OR MOANING NOTED. ON VENTILATOR TOLERATING SETTINGS WELL. NO S/S OF ANY RESPIRATORY DISTRESS NOTED. W/ GTF IN PLACE W/ NO RESIDUALS NOTED. TOLERATING WELL. ON TELE MONITOR SINUS AT 87 W/ BBB. HAS TEMP. HD CATH ON LCW W/ DRESSING C/D/I. IV TO LH PATENT AND INTACT W/ NO S/S OF INFECTION/INFILTRATION NOTED. CALL LIGHT W/ REACH. WILL CONTINUE TO MONITOR. DENIES ANY C/ O CHEST PAIN OR SOB AT PRESENT. ON CONTACT ISOLATION. WILL CONTINUE TO MONITOR. RECEIVED PATIENT RESTING COMFORTABLY IN BED, ONGOING DIALYSIS. HOB ELEVATED, VENTILATOR SETTINGS NOTED. NO S/S OF DISTRESS NOTED. NO S/S OF PAIN OR DISCOMFORT. ON TELEMONITOR, SINUS RHYTHM WITH BBB AND PVC'S HR=84. IV SITE INTACT AND PATENT. LEFT CW HD CATH NOTED. GTUBE IN PLACE, FEEDING RUNNING ORDERED. ISOLATION PRECAUTIONS IMPLEMENTED. BED IN LOW/LOCKED POSITION WITH CALL LIGHT IN REACH. SIDE RAILS UPX2, HEELS ELEVATED. WILL CONTINUE TO MONITOR ACCORDINGLY. Addendum: 12/10/17 at 0434 by BAUDILIO KHAN RN ENTERED IN WRONG PT.
--- NOTE | 2017-12-09 19:30 | NUR ---
RN CLOSING NOTES PATIENT IN BED RESTING. NO ACUTE DISTRESS, NO SOB NOTED. ALL NEEDS ATTENDED AND PROVIDED. KEPT PATIENT SAFE AND COMFORTABLE. TURNED AND REPOSITION PATIENT EVERY 2 HOURS NEEDED. BED IN LOW/LOCKED POSITION, SIDERAILS UPX2, CALL LIGHT IN REACH. ENDORSED TO NIGHT RN FOR SATISH.
[2017-12-09 20:00] VITALS: BP 118/71
[2017-12-09] MEDS: LINEZOLID RTU BAG 600 MG in PREMIX 1 EA IV SCH (21:00)
[2017-12-09] MEDS: ATORVASTATIN 40 MG TABLET GT SCH (21:04)
[2017-12-09] MEDS: CEFTAZIDIME 1 G in IV D5W 50 ML IV SCH (21:04)
--- NOTE | 2017-12-09 22:42 | NUR ---
Received pt on vent support, pt stable on current settings, no SOB or respiratory distress noted.Ventilator is plugged into red outlet, alarms are audible, ambu bag at bedside. Will continue monitoring per [facility] orders. Addendum: 12/09/17 at 2242 by CORRINA VASQUES RT Amended: Links added.
[2017-12-09] MEDS ORDERED: LINEZOLID RTU BAG 300 ML IV ONE (23:09)
[2017-12-10] VITALS (15 sets, daily range): BP systolic 104–137; BP diastolic 52–71
[2017-12-10] MEDS: ALBUTEROL FS 2.5 MG/0.5 ML VIAL.NEB NEB SCH ×4 (01:01→20:26)
[2017-12-10] MEDS: IPRATROPIUM NEB FS 0.5 MG/2.5 ML AMPUL.NEB NEB SCH ×4 (01:01→20:26)
[2017-12-10] MEDS: RENAL NOVASOURCE 1,000 ML BOTTLE GT PRN (03:52)
[2017-12-10] MEDS: BLOOD SUGAR DIAGNOSTIC 1 EACH STRIP IN SCH ×3 (05:22→18:08)
[2017-12-10] MEDS: MIDODRINE HCL (5MG) 5 MG TABLET GT SCH ×3 (05:27→20:29)
--- NOTE | 2017-12-10 06:59 | NUR ---
RN/TELE NOTES: NO ACUTE DISTRESS NOTED DURING SHIFT. REPORT GIVEN TO AM SHIFT NURSE FOR SATISH.
--- NOTE | 2017-12-10 07:31 | NUR ---
RN NOTES RECEIVED PT FROM SWATCH CHECKER, CHRONIC VENT/TRACH DEPENDENT, TOLERATING VENT SETTINGS NO SOB OR DISTRESS NOTED. PT IS ABLE TO MOUTH OUT NEEDS. SR ON THE TELE MANDA HR IN THE 70S. GTF AT 35ML/HR, TOLERATING WELL. L HAND 22G IV SITE INTACT DRY AND INTACT NO IVF. BED LOCKED AND IN LOWEST POSITION, CALL LIGHT WITHIN REACH, SIDE RAILS UPX3, WILL CONT TO MANDA.
[2017-12-10 07:32] LABS: CALCIUM, SERUM 8.6 mg/dL (8.5-10.1); CARBON DIOXIDE 31 mmol/L (21-32); CHLORIDE 100 mmol/L (98-107); CREATININE 3.4 mg/dL (0.6-1.3); GLUCOSE 111 mg/dL (74-106); MAGNESIUM 2.2 mg/dL (1.8-2.4); PHOSPHORUS 2.9 mg/dL (2.5-4.9); POTASSIUM 4.1 mmol/L (3.5-5.1); SODIUM SERUM 138 mmol/L (136-145)
[2017-12-10 07:34] LABS: UREA NITROGEN, BLOOD 81 mg/dL (7-18)
[2017-12-10 07:35] LABS: BASOPHILS % (AUTO) 0.3 % (0.0-2.0); EOSINOPHILS # (AUTO) 0.4 /CMM (0.0-0.7); EOSINOPHILS % (AUTO) 3.5 % (0.0-6.0); HEMATOCRIT 21 % (33-45); LYMPHOCYTES # (AUTO) 1.3 /CMM (0.8-4.8); LYMPHOCYTES % (AUTO) 10.5 % (20.0-44.0); MEAN CORPUSCULAR HEMOGLOBIN 29 PG (26.0-33.0); MEAN CORPUSCULAR HGB CONC 32 g/dl (31.0-36.0); MEAN CORPUSCULAR VOLUME 91 fL (82-100); MONOCYTES # (AUTO) 1.3 /CMM (0.1-1.30); MONOCYTES % (AUTO) 10.4 % (2.0-12.0); NEUTROPHILS # (AUTO) 9.2 /CMM (1.8-8.9); NEUTROPHILS % (AUTO) 75.3 % (43.0-81.0); PLATELET COUNT (AUTO) 211 /CMM (150-450); RDW COEFFICIENT OF VARIATION 19.1 (11.5-15.0); RED BLOOD CELL COUNT(AUTO) 2.26 MIL/uL (4.0-5.2); WHITE BLOOD COUNT (AUTO) 12.3 K/uL (4.3-11.0)
[2017-12-10 07:36] LABS: HEMOGLOBIN 6.6 g/dL (11.5-14.8)
--- NOTE | 2017-12-10 07:50 | NUR ---
RN NOTES HOSTAGE NEGOTIATOR VADIM NOTIFIED OF HGB 6.6, 1 UNIT OF BLOOD ORDERED.
[2017-12-10] MEDS: DOCUSATE SODIUM LIQ 100 MG/10 ML UDC GT SCH ×2 (08:49→20:29)
[2017-12-10] MEDS: VIT B CMPLX 3/FA/VIT C/BIOTIN 1 TAB TABLET GT SCH (08:49)
[2017-12-10] MEDS: risperiDONE LIQUID 1 MG/ML ML GT SCH ×2 (08:49→20:29)
[2017-12-10] MEDS: ASPIRIN 81 MG TAB.CHEW GT SCH (08:50)
[2017-12-10] MEDS: METOCLOPRAMIDE HCL 10 MG TABLET GT SCH (08:50)
[2017-12-10] MEDS: LACTOBACILLUS RHAMNOSUS GG 1 EACH CAP.SPRINK GT SCH ×2 (08:50→16:18)
[2017-12-10] MEDS: ZINC SULFATE 220 MG CAPSULE GT SCH (08:50)
[2017-12-10] MEDS: PANTOPRAZOLE 40 MG/PACK PACK GT SCH (08:50)
[2017-12-10] MEDS: POLYETHYLENE GLYCOL 3350 17 GM POWD.PACK GT SCH (08:51)
[2017-12-10] MEDS: Z GUARD REMEDY 2 OZ OINT TP SCH (08:51)
[2017-12-10] MEDS: PROSOURCE / PROSTAT (PYXIS) 30 ML UDC GT SCH ×2 (08:51→16:18)
[2017-12-10] MEDS: DAKINS QUARTER STRENGTH (0.125%) 480 ML BOTTLE TOP SCH (08:52)
[2017-12-10] MEDS: CADEXOMER IODINE 40 GM TUBE TP SCH (08:52)
[2017-12-10] MEDS: GENTAMICIN 0.1% OINT 15 GM TUBE TP SCH ×4 (08:52→16:19)
[2017-12-10] MEDS ORDERED: METOCLOPRAMIDE HCL 10 MG TABLET GT PRN (09:30)
[2017-12-10] MEDS: LINEZOLID RTU BAG 600 MG in PREMIX 1 EA IV SCH ×2 (10:00→21:22)
[2017-12-10 10:02] LABS: EOSINOPHILS % (MANUAL) 4 % (0-4); LYMPHOCYTES % (MANUAL) 2 % (16-48); MONOCYTES % (MANUAL) 13 % (0-11.0); NEUTROPHILS % (MANUAL) 81 (42-76)
--- NOTE | 2017-12-10 15:00 | NUR ---
RN NOTES ORDER FOR 2ND UNIT OF BLOOD ORDERED PER DR MAYS. PER VADIM ONLY 1 UNIT. ORDERED D/ASUNCION.
--- NOTE | 2017-12-10 18:26 | NUR ---
RN NOTES PT REMAINED IN STABLE CONDITION THROUGHOUT THE SHIFT, ALL NEEDS MET. TOLERATED BLOOD TRANSFUSION. NOS SIGNIFICANT CHANGES. WILL ENDORSE TO ONCOMING SHIFT.
--- NOTE | 2017-12-10 19:30 | NUR ---
SENIOR RESEARCH MANAGER OPENING NOTES RECEIVED PT FROM AM SHIFT, A & O X 2, CHRONIC VENT/TRACH DEPENDENT, TOLERATING VENT SETTINGS NO SOB OR DISTRESS NOTED. PT IS ABLE TO MOUTH OUT NEEDS. ON TELE MONITORING WITH SR RATE 74. GTF AT 35ML/HR, TOLERATING WELL. L HAND 22G IV SITE, RAJAN IV SITE, SL, INTACT PATENT. LCW TEMP HD CATH, INTACT. BED LOCKED AND IN LOWEST POSITION, CALL LIGHT WITHIN REACH, SIDE RAILS UP X 3, WILL CONT TO MANDA.
--- NOTE | 2017-12-10 20:27 | NUR ---
PT RCVD ON VENT WITH NOTED SETTINGS. PT IS ALERT AND AWAKE. BREATHING TX GIVEN MD'S ORDERED. NO ADVERSE REACTION NOTED. VENTS PLUGGED INTO RED OUTLET, VENT ALARM WORKING AND AUDIBLE. SUCTIONED LARGE AMOUNT OF YELLOW THICK SECRETIONS. BILATERAL BS NOTED, NO RESPIRATORY DISTRESS NOTED AT THIS TIME. WILL CONTINUE TO MONITOR THE PT.
[2017-12-10] MEDS: ATORVASTATIN 40 MG TABLET GT SCH (21:19)
[2017-12-11] VITALS: BP 116/59
[2017-12-11] MEDS: BLOOD SUGAR DIAGNOSTIC 1 EACH STRIP IN SCH ×5 (00:29→23:10)
[2017-12-11] MEDS: ALBUTEROL FS 2.5 MG/0.5 ML VIAL.NEB NEB SCH ×4 (01:13→19:56)
[2017-12-11] MEDS: IPRATROPIUM NEB FS 0.5 MG/2.5 ML AMPUL.NEB NEB SCH ×4 (01:13→19:56)
[2017-12-11 04:00] VITALS: BP 109/65
[2017-12-11] MEDS: MIDODRINE HCL (5MG) 5 MG TABLET GT SCH ×3 (05:46→21:07)
[2017-12-11] MEDS: RENAL NOVASOURCE 1,000 ML BOTTLE GT PRN (05:50)
--- NOTE | 2017-12-11 06:41 | NUR ---
GEOGRAPHIC AREA INTELLIGENCE OFFICER CLOSING NOTES PATIENT IN BED RESTING. NO ACUTE DISTRESS, NO SOB NOTED. ALL NEEDS ATTENDED TO & MET. KEPT PATIENT SAFE AND COMFORTABLE. ON TELE MONITORING WITH SR WITH BBB WITH PVC'S. ON GTF NOVASOURCE @ 35 ML/HR, TOLERATING WELL. TURNED AND REPOSITION EVERY 2 HOURS NEEDED. BED IN LOW/LOCKED POSITION, SIDE RAILS UP X 2, CALL LIGHT IN REACH. WILL ENDORSE TO AM RN FOR SATISH.
--- NOTE | 2017-12-11 07:05 | NUR ---
BODY SHOP ESTIMATOR NOTE: RECEIVED PATIENT IN BED, AWAKE, OPEN EYES WHEN CALLING HER NAME. NOT ON ANY FORM OF DISTRESS. ON CONTACT ISOLATION FOR MRSA WOUND. PATIENT VENT-TRACH DEPENDENT AND TOLERATING THE CURRENT SETTINGS. PT ON TELE MONITOR WITH SR W/ BBB & PVC. (L) CHEST WALL HD CATH NOTED INTACT WITH DRESSING. GT FEEDING OF NOVASOURCE @35ML/HR TOLERATING WELL. NO S/S OF DISCOMFORT OR PAIN AT THIS TIME. ON STABLE CONDITION. (R) UA 20G AND (L) HAND 22G SL NOTED. BED ALARM AND LOCKED ON. SAFETY AND ASPIRATION PRECAUTION OBSERVED. CALL LIGHT WITHIN REACH.
[2017-12-11 07:48] LABS: BASOPHILS % (AUTO) 0.1 % (0.0-2.0); HEMATOCRIT 23 % (33-45); HEMOGLOBIN 7.8 g/dL (11.5-14.8); LYMPHOCYTES # (AUTO) 1.3 /CMM (0.8-4.8); MEAN CORPUSCULAR HEMOGLOBIN 30 PG (26.0-33.0); MEAN CORPUSCULAR HGB CONC 34 g/dl (31.0-36.0); MEAN CORPUSCULAR VOLUME 90 fL (82-100); MONOCYTES # (AUTO) 1.1 /CMM (0.1-1.30); MONOCYTES % (AUTO) 7.8 % (2.0-12.0); NEUTROPHILS % (AUTO) 82.1 % (43.0-81.0); PLATELET COUNT (AUTO) 222 /CMM (150-450); RDW COEFFICIENT OF VARIATION 18.8 (11.5-15.0); RED BLOOD CELL COUNT(AUTO) 2.57 MIL/uL (4.0-5.2); WHITE BLOOD COUNT (AUTO) 13.4 K/uL (4.3-11.0)
[2017-12-11 07:49] LABS: CALCIUM, SERUM 8.5 mg/dL (8.5-10.1); CHLORIDE 100 mmol/L (98-107); CREATININE 3.8 mg/dL (0.6-1.3); GLUCOSE 95 mg/dL (74-106); MAGNESIUM 2.4 mg/dL (1.8-2.4); PHOSPHORUS 3.9 mg/dL (2.5-4.9); POTASSIUM 4.4 mmol/L (3.5-5.1); SODIUM SERUM 137 mmol/L (136-145)
[2017-12-11 07:54] LABS: CARBON DIOXIDE 29 mmol/L (21-32)
[2017-12-11 07:57] LABS: UREA NITROGEN, BLOOD 92 mg/dL (7-18)
[2017-12-11 08:00] VITALS: BP 117/62
[2017-12-11] MEDS: ZINC SULFATE 220 MG CAPSULE GT SCH (08:26)
[2017-12-11] MEDS: DOCUSATE SODIUM LIQ 100 MG/10 ML UDC GT SCH ×2 (08:26→21:07)
[2017-12-11] MEDS: PANTOPRAZOLE 40 MG/PACK PACK GT SCH (08:26)
[2017-12-11] MEDS: POLYETHYLENE GLYCOL 3350 17 GM POWD.PACK GT SCH (08:26)
[2017-12-11] MEDS: ASPIRIN 81 MG TAB.CHEW GT SCH (08:26)
[2017-12-11] MEDS: LACTOBACILLUS RHAMNOSUS GG 1 EACH CAP.SPRINK GT SCH ×2 (08:26→16:12)
[2017-12-11] MEDS: VIT B CMPLX 3/FA/VIT C/BIOTIN 1 TAB TABLET GT SCH (08:26)
[2017-12-11] MEDS: CADEXOMER IODINE 40 GM TUBE TP SCH (08:29)
[2017-12-11] MEDS: Z GUARD REMEDY 2 OZ OINT TP SCH (08:29)
[2017-12-11] MEDS: GENTAMICIN 0.1% OINT 15 GM TUBE TP SCH ×3 (08:30→17:53)
[2017-12-11] MEDS: PROSOURCE / PROSTAT (PYXIS) 30 ML UDC GT SCH ×2 (08:32→16:13)
[2017-12-11] MEDS: risperiDONE LIQUID 1 MG/ML ML GT SCH ×2 (08:34→21:09)
[2017-12-11] MEDS: LINEZOLID RTU BAG 600 MG in PREMIX 1 EA IV SCH ×2 (08:52→21:10)
[2017-12-11 12:00] VITALS: BP_SYST 111; BP_SYST 89; BP_DIAS 54; BP_DIAS 69
[2017-12-11] MEDS: DAKINS QUARTER STRENGTH (0.125%) 480 ML BOTTLE TOP SCH (12:42)
[2017-12-11] MEDS: EPOETIN ALFA (20,000 UNIT) 20,000 UNIT/ML VIAL SQ SCH (14:01)
[2017-12-11] MEDS: GENTAMICIN 80 MG in IV D5W 50 ML IV PRN (14:02)
--- NOTE | 2017-12-11 15:49 | NUR ---
RN NOTES DR BERMEO ON THE FLOOR SEEING PT AND NOTIFIED REGARDING POSITIVE FAECALIS IN URINE CULTURE , NO NEW ORDER GIVEN .
[2017-12-11 16:00] VITALS: BP 128/55
[2017-12-11] MEDS: CEFTAZIDIME 1 G in IV D5W 50 ML IV SCH (18:00)
--- NOTE | 2017-12-11 18:37 | NUR ---
PT. 72 Y OLD FEMALE REMAIN TRACHED PORTEX AND ON VENT WITH NOTED SETTINGS, ALARMS ARE SET AND FUNCTIONAL. B/S RHONCHI AND EQUAL CHEST RISE NOTED. TX'S GIVEN INLINE AND NO DISTRESS NOTED T/O SHIFT SUX'D FOR MODERATE AMT. OF YELLOWISH SECRETIONS. VENT PLUGGED INTO RED OUT LET AMBU BAT AT THE BEDSIDE. PT. REMAIN STABLE. REPORT WILL BE PASS TO PM SHIFT. Addendum: 12/11/17 at 1840 by LEONORA WYNNE RT Amended: Links added.
--- NOTE | 2017-12-11 19:27 | NUR ---
FUSING MACHINE OPERATOR NOTE: PATIENT IN BED, VENT-TRACH DEPENDENT. NOT ON ANY FORM OF DISTRESS. GT FEEDING RUNNING ORDERED. TOLERATING WELL. NO RESIDUAL NOTED. HOB ELEVATED. CALL LIGHT WITHIN REACH. NEEDS ANTICIPATED. ENDORSED TO PM RN FOR CONTINUITY OF CARE.
--- NOTE | 2017-12-11 19:38 | NUR ---
AIRBORNE OPERATIONS SUPERINTENDENT OPENING NOTES RECEIVED PT. IN BED A/O X 2. MOUTH WORDS, HOB ELEVATED. NO FACIAL GRIMACES OR MOANING NOTED. ON VENTILATOR, PLUGGED IN RED OUTLET AND WORKING. NO S/S OF ANY RESPIRATORY DISTRESS NOTED. W/ GTF IN PLACE W/ 5ML RESIDUALS NOTED. TOLERATING WELL. ON TELE MONITOR SINUS AT 87 W/ BBB. HD CATH ON LCW W/ DRESSING C/D/I. IV TO LH PATENT AND INTACT W/ NO S/S OF INFECTION/INFILTRATION NOTED. CALL LIGHT W/ REACH. NO PAIN OR DISCOMFORT NOTED AT THIS TIME. ON CONTACT ISOLATION. WILL CONTINUE TO MONITOR
[2017-12-11 20:00] VITALS: BP 132/64
--- NOTE | 2017-12-11 21:12 | NUR ---
RN NOTE RISPERIDONE LIQUID 1MG/ML ADMINISTERED, WAS NOT ABLE TO SCAN LOT #[id number]
[2017-12-11] MEDS: ATORVASTATIN 40 MG TABLET GT SCH (21:17)
[2017-12-11] MEDS: INSULIN REGULAR, HUMAN 100 UNIT/ML 3 ML VIAL SQ PRN (23:12)
[2017-12-12] VITALS: BP 125/64
[2017-12-12] MEDS: IPRATROPIUM NEB FS 0.5 MG/2.5 ML AMPUL.NEB NEB SCH ×4 (01:50→20:37)
[2017-12-12] MEDS: ALBUTEROL FS 2.5 MG/0.5 ML VIAL.NEB NEB SCH ×4 (01:50→20:37)
[2017-12-12 04:00] VITALS: BP 133/75
[2017-12-12] MEDS: MIDODRINE HCL (5MG) 5 MG TABLET GT SCH ×3 (05:01→20:58)
[2017-12-12] MEDS: BLOOD SUGAR DIAGNOSTIC 1 EACH STRIP IN SCH ×3 (05:26→18:06)
--- NOTE | 2017-12-12 07:00 | NUR ---
RN NOTES RECEIVED PT ON BED A/O X 1. MOUTH WORDS, VENT/ TRACH DEPENDENT, NO SOB NOTED, TOLERATING CURRENT VENT SETTING WELL, ON TELE SR WITH BBB HR IN 80'S , NOVASOURCE AT 35CC/HR RUNNING VIA G-TUBE ,TOLERATING WELL, HD CATH ON LCW W/ DRESSING C/D/I. R UPPER ARM IV SITE G 20 CDI, CALL LIGHT WITHIN EASY REACH. SR UP x3, BED LOCKED AND IN LOWEST POSITION , NO PAIN OR DISCOMFORT NOTED AT THIS TIME. ON CONTACT ISOLATION. WILL CONTINUE TO MONITOR.
--- NOTE | 2017-12-12 07:10 | NUR ---
RN CLOSING NOTE PATIENT IN BED, awake. NO ACUTE DISTRESS, NO SOB NOTED. ALL NEEDS ATTENDED TO & MET. KEPT PATIENT SAFE AND COMFORTABLE. ON TELE MONITORING WITH SR WITH BBB. ON GTF NOVASOURCE @ 35 ML/HR, TOLERATING WELL, 5ML RESIDUAL ONLY TURNED AND REPOSITION EVERY 2 HOURS, OFFLOAD EXTREMITIES. BED IN LOWEST POSITION, SIDE RAILS UP X 2, CALL LIGHT IN REACH. WILL PROVIDE REPORT TO MORNING SHIFT
[2017-12-12 08:00] VITALS: BP 114/63
[2017-12-12 08:02] LABS: CALCIUM, SERUM 8.5 mg/dL (8.5-10.1); CARBON DIOXIDE 30 mmol/L (21-32); CHLORIDE 97 mmol/L (98-107); CREATININE 3.1 mg/dL (0.6-1.3); GLUCOSE 96 mg/dL (74-106); POTASSIUM 3.9 mmol/L (3.5-5.1); SODIUM SERUM 138 mmol/L (136-145); UREA NITROGEN, BLOOD 68 mg/dL (7-18)
[2017-12-12] MEDS: VIT B CMPLX 3/FA/VIT C/BIOTIN 1 TAB TABLET GT SCH (08:30)
[2017-12-12] MEDS: PANTOPRAZOLE 40 MG/PACK PACK GT SCH (08:30)
[2017-12-12] MEDS: LACTOBACILLUS RHAMNOSUS GG 1 EACH CAP.SPRINK GT SCH ×2 (08:30→16:48)
[2017-12-12] MEDS: ASPIRIN 81 MG TAB.CHEW GT SCH (08:30)
[2017-12-12] MEDS: DOCUSATE SODIUM LIQ 100 MG/10 ML UDC GT SCH ×2 (08:30→20:57)
[2017-12-12] MEDS: ZINC SULFATE 220 MG CAPSULE GT SCH (08:30)
[2017-12-12] MEDS: LINEZOLID RTU BAG 600 MG in PREMIX 1 EA IV SCH ×2 (08:35→20:58)
[2017-12-12] MEDS: risperiDONE LIQUID 1 MG/ML ML GT SCH ×2 (08:46→20:57)
[2017-12-12] MEDS: DAKINS QUARTER STRENGTH (0.125%) 480 ML BOTTLE TOP SCH (08:50)
[2017-12-12] MEDS: CADEXOMER IODINE 40 GM TUBE TP SCH (08:50)
[2017-12-12] MEDS: POLYETHYLENE GLYCOL 3350 17 GM POWD.PACK GT SCH (08:50)
[2017-12-12] MEDS: PROSOURCE / PROSTAT (PYXIS) 30 ML UDC GT SCH ×2 (08:50→16:48)
[2017-12-12] MEDS: GENTAMICIN 0.1% OINT 15 GM TUBE TP SCH ×2 (08:52→16:48)
[2017-12-12] MEDS: Z GUARD REMEDY 2 OZ OINT TP SCH (08:53)
[2017-12-12 12:00] VITALS: BP 110/62
[2017-12-12] MEDS: RENAL NOVASOURCE 1,000 ML BOTTLE GT PRN (12:38)
[2017-12-12 12:48] LABS: BASOPHILS % (AUTO) 0.2 % (0.0-2.0); EOSINOPHILS # (AUTO) 0.5 /CMM (0.0-0.7); EOSINOPHILS % (AUTO) 3.2 % (0.0-6.0); HEMATOCRIT 23 % (33-45); HEMOGLOBIN 7.9 g/dL (11.5-14.8); LYMPHOCYTES # (AUTO) 1.1 /CMM (0.8-4.8); MEAN CORPUSCULAR HEMOGLOBIN 30 PG (26.0-33.0); MEAN CORPUSCULAR HGB CONC 34 g/dl (31.0-36.0); MEAN CORPUSCULAR VOLUME 90 fL (82-100); MONOCYTES % (AUTO) 6.9 % (2.0-12.0); NEUTROPHILS # (AUTO) 11.7 /CMM (1.8-8.9); NEUTROPHILS % (AUTO) 81.7 % (43.0-81.0); PLATELET COUNT (AUTO) 239 /CMM (150-450); RDW COEFFICIENT OF VARIATION 18.8 (11.5-15.0); RED BLOOD CELL COUNT(AUTO) 2.59 MIL/uL (4.0-5.2); WHITE BLOOD COUNT (AUTO) 14.3 K/uL (4.3-11.0)
[2017-12-12 16:00] VITALS: BP 122/67
[2017-12-12] MEDS: CEFTAZIDIME 1 G in IV D5W 50 ML IV SCH (17:11)
--- NOTE | 2017-12-12 18:47 | NUR ---
closing pt alert able to blink when aroused and questioned. seen by PA who aroused pt noted eyes open. pt remains on ventilator no change in settings. wounds re-dressed and solutions applied along with Mepilex. wound consult ordered to re-evaluated right and left heels endorse to next shift for continuity of care
[2017-12-12 20:00] VITALS: BP 128/69
[2017-12-12] MEDS: ATORVASTATIN 40 MG TABLET GT SCH (20:58)
[2017-12-13] VITALS: BP 117/62
[2017-12-13] MEDS: BLOOD SUGAR DIAGNOSTIC 1 EACH STRIP IN SCH ×2 (00:16→06:19)
[2017-12-13] MEDS: ALBUTEROL FS 2.5 MG/0.5 ML VIAL.NEB NEB SCH ×4 (01:38→19:55)
[2017-12-13] MEDS: IPRATROPIUM NEB FS 0.5 MG/2.5 ML AMPUL.NEB NEB SCH ×4 (01:38→19:55)
--- NOTE | 2017-12-13 02:33 | NUR ---
Received pt on vent support, pt stable on current vent settings, no SOB or respiratory distress noted. Mechanical Ventilator is plugged into red outlet, alarms are set & audible, BVM bag at head of bed. Will continue monitoring Addendum: 12/13/17 at 0235 by BK MOREL RT Amended: Links added.
[2017-12-13 04:00] VITALS: BP 123/60
[2017-12-13] MEDS: MIDODRINE HCL (5MG) 5 MG TABLET GT SCH ×3 (04:41→21:07)
--- NOTE | 2017-12-13 07:05 | NUR ---
RUG HOOKER HAND OPENING NOTE AAO1. HOB ELEVATED. VENT TRACH. RESTING CALM. HD TODAY? RAJAN 20G SL. LCW HD CATH. LAST HD 12/11 2.5L OUT. ANURIC. STAGE IV DECUB COCCYX. TF 35ML/HR RUNNING. SR BBB. BLE EDEMA. BED IN LOW LOCKED POSITION. CALL LIGHT IN REACH. URINE VRE ISOLATION PRECAUTIONS. WILL CONT TO MONITOR CLOSELY.
[2017-12-13 07:57] LABS: CALCIUM, SERUM 8.5 mg/dL (8.5-10.1); CARBON DIOXIDE 28 mmol/L (21-32); CHLORIDE 94 mmol/L (98-107); CREATININE 3.7 mg/dL (0.6-1.3); GLUCOSE 105 mg/dL (74-106); POTASSIUM 4.1 mmol/L (3.5-5.1); SODIUM SERUM 134 mmol/L (136-145)
[2017-12-13 07:59] LABS: UREA NITROGEN, BLOOD 88 mg/dL (7-18)
[2017-12-13 08:00] VITALS: BP_SYST 109; BP_SYST 99; BP_DIAS 61; BP_DIAS 73
[2017-12-13 08:00] LABS: GENTAMICIN,TROUGH 3.6 ug/ml (0.2-2.0)
[2017-12-13] MEDS: LACTOBACILLUS RHAMNOSUS GG 1 EACH CAP.SPRINK GT SCH ×2 (08:34→17:26)
[2017-12-13] MEDS: PANTOPRAZOLE 40 MG/PACK PACK GT SCH (08:34)
[2017-12-13] MEDS: LINEZOLID RTU BAG 600 MG in PREMIX 1 EA IV SCH ×2 (08:34→21:12)
[2017-12-13] MEDS: VIT B CMPLX 3/FA/VIT C/BIOTIN 1 TAB TABLET GT SCH (08:34)
[2017-12-13] MEDS: ZINC SULFATE 220 MG CAPSULE GT SCH (08:34)
[2017-12-13] MEDS: ASPIRIN 81 MG TAB.CHEW GT SCH (08:34)
[2017-12-13] MEDS: DAKINS QUARTER STRENGTH (0.125%) 480 ML BOTTLE TOP SCH (08:35)
[2017-12-13] MEDS: Z GUARD REMEDY 2 OZ OINT TP SCH (08:35)
[2017-12-13] MEDS: CADEXOMER IODINE 40 GM TUBE TP SCH (08:35)
[2017-12-13] MEDS: GENTAMICIN 0.1% OINT 15 GM TUBE TP SCH ×2 (08:35→16:11)
[2017-12-13] MEDS: risperiDONE LIQUID 1 MG/ML ML GT SCH ×2 (08:36→21:06)
[2017-12-13] MEDS: DOCUSATE SODIUM LIQ 100 MG/10 ML UDC GT SCH ×2 (08:36→21:06)
[2017-12-13] MEDS: POLYETHYLENE GLYCOL 3350 17 GM POWD.PACK GT SCH (08:36)
[2017-12-13] MEDS: PROSOURCE / PROSTAT (PYXIS) 30 ML UDC GT SCH ×2 (08:36→17:26)
[2017-12-13 12:00] VITALS: BP 110/57
[2017-12-13 14:14] LABS: BASOPHILS % (AUTO) 0.3 % (0.0-2.0); EOSINOPHILS # (AUTO) 0.8 /CMM (0.0-0.7); EOSINOPHILS % (AUTO) 6.2 % (0.0-6.0); HEMATOCRIT 23 % (33-45); HEMOGLOBIN 7.7 g/dL (11.5-14.8); LYMPHOCYTES % (AUTO) 7.8 % (20.0-44.0); MEAN CORPUSCULAR HEMOGLOBIN 31 PG (26.0-33.0); MEAN CORPUSCULAR HGB CONC 34 g/dl (31.0-36.0); MEAN CORPUSCULAR VOLUME 91 fL (82-100); MONOCYTES # (AUTO) 0.8 /CMM (0.1-1.30); MONOCYTES % (AUTO) 6.2 % (2.0-12.0); NEUTROPHILS # (AUTO) 10.3 /CMM (1.8-8.9); NEUTROPHILS % (AUTO) 79.5 % (43.0-81.0); PLATELET COUNT (AUTO) 244 /CMM (150-450); RDW COEFFICIENT OF VARIATION 18.7 (11.5-15.0); RED BLOOD CELL COUNT(AUTO) 2.51 MIL/uL (4.0-5.2)
[2017-12-13] MEDS: EPOETIN ALFA (20,000 UNIT) 20,000 UNIT/ML VIAL SQ SCH (14:50)
[2017-12-13 16:00] VITALS: BP 119/60
[2017-12-13] MEDS: RENAL NOVASOURCE 1,000 ML BOTTLE GT PRN (17:26)
--- NOTE | 2017-12-13 18:26 | NUR ---
RED MUD THICKENER OPERATOR CLOSING NOTE NO ACUTE EVENTS. HD 1.8L OFF. TOLERATING TF NO RESIDUALS. WOUND CARE. HOB ELEVATED. NO RESP DISTRESS. SR BBB. BED IN LOW LOCKED POSITION. SIDE RAILS UP X 2. CALL LIGHT IN REACH. WILL ENDORSE TO ENRIQUE RN.
[2017-12-13] MEDS: CEFTAZIDIME 1 G in IV D5W 50 ML IV SCH (19:44)
--- NOTE | 2017-12-13 19:50 | NUR ---
PEDIATRIC CLINICAL NURSE SPECIALIST OPENING NOTE RECEIVED PATIENT IN THE BED, ASLEEP, EASILY AWAKENED, ONGOING G-TUBE FEEDING NOVASOURCE 35 ML/HR, RESIDUAL 0, HOB ELEVATED. VENT TRACH. RESTING CALM. RAJAN MIDLINE, RAJAN 20G SL. LCW HD CATH. LAST HD 12/13 1L OUT. ANURIC. STAGE IV DECUB COCCYX. SR BBB. BLE EDEMA. BED IN LOW LOCKED POSITION. CALL LIGHT IN REACH, SIDE RAILS UP X 2, URINE VRE ISOLATION PRECAUTIONS. WILL CONT TO MONITOR CLOSELY
[2017-12-13 20:00] VITALS: BP 119/68
--- NOTE | 2017-12-13 20:40 | NUR ---
RT RECEIVED PT TRACHED WITH NOTED VENT SETTINGS, GIVING OFFICER DONE AND TRACH IS SECURE. SX WITH MOD THK JOEL SECRETIONS. VENT ALARMS CHECKED AND AUDIBLE. VENT PLUGGED IN RED OUTLET. AMBU BAG NOTED HOB. NO RESP DISTRESS NOTED AT THIS TIME, WILL CONTINUE TO MONITOR T/O SHIFT
[2017-12-13] MEDS: ATORVASTATIN 40 MG TABLET GT SCH (22:28)
[2017-12-14] VITALS (7 sets, daily range): BP systolic 113–134; BP diastolic 59–81
[2017-12-14] MEDS: IPRATROPIUM NEB FS 0.5 MG/2.5 ML AMPUL.NEB NEB SCH ×4 (02:06→20:20)
[2017-12-14] MEDS: ALBUTEROL FS 2.5 MG/0.5 ML VIAL.NEB NEB SCH ×4 (02:06→20:20)
[2017-12-14] MEDS: MIDODRINE HCL (5MG) 5 MG TABLET GT SCH ×3 (05:51→21:03)
--- NOTE | 2017-12-14 07:28 | NUR ---
PERSONNEL SECURITY ASSISTANT CLOSING NOTE NO ACUTE CHANGES DURING MY SHIFT. TOLERATING NOVASOURCE WELL NO RESIDUALS. WOUND CARE PROVIDED. HOB ELEVATED AT AL TIMES. NO RESP DISTRESS NOTED. SR BBB. BED IN LOW LOCKED POSITION. SIDE RAILS UP X 2. CALL LIGHT WITHIN REACH. ENDORSED TO AM RN.
--- NOTE | 2017-12-14 08:00 | NUR ---
TAPPER BIT note AAO1. HOB ELEVATED. VENT TRACH. RESTING CALM. HD TODAY? RAJAN 20G SL. LCW HD CATH. LAST HD 12/11 2.5L OUT. ANURIC. . TF 35ML/HR RUNNING. SR BBB. BLE EDEMA. BED IN LOW LOCKED POSITION. CALL LIGHT IN REACH. URINE VRE ISOLATION PRECAUTIONS. WILL CONT TO MONITOR CLOSELY.on tele WITH SR BBB, SEEN BY WOUND NURSE WILL CONT TO MONITOR CLOSELY RT AT BEDSIDE
[2017-12-14] MEDS: VIT B CMPLX 3/FA/VIT C/BIOTIN 1 TAB TABLET GT SCH (08:34)
[2017-12-14] MEDS: ZINC SULFATE 220 MG CAPSULE GT SCH (08:34)
[2017-12-14] MEDS: PANTOPRAZOLE 40 MG/PACK PACK GT SCH (08:34)
[2017-12-14] MEDS: DOCUSATE SODIUM LIQ 100 MG/10 ML UDC GT SCH ×2 (08:34→21:03)
[2017-12-14] MEDS: ASPIRIN 81 MG TAB.CHEW GT SCH (08:34)
[2017-12-14] MEDS: LACTOBACILLUS RHAMNOSUS GG 1 EACH CAP.SPRINK GT SCH ×2 (08:34→16:25)
[2017-12-14] MEDS: POLYETHYLENE GLYCOL 3350 17 GM POWD.PACK GT SCH (08:34)
[2017-12-14] MEDS: PROSOURCE / PROSTAT (PYXIS) 30 ML UDC GT SCH ×2 (08:34→16:25)
[2017-12-14] MEDS: LINEZOLID RTU BAG 600 MG in PREMIX 1 EA IV SCH ×2 (08:35→21:02)
[2017-12-14] MEDS: risperiDONE LIQUID 1 MG/ML ML GT SCH ×2 (08:35→21:03)
[2017-12-14] MEDS: DAKINS QUARTER STRENGTH (0.125%) 480 ML BOTTLE TOP SCH (08:35)
[2017-12-14] MEDS: GENTAMICIN 0.1% OINT 15 GM TUBE TP SCH ×2 (08:36→16:26)
[2017-12-14] MEDS: CADEXOMER IODINE 40 GM TUBE TP SCH (08:36)
[2017-12-14] MEDS: Z GUARD REMEDY 2 OZ OINT TP SCH (08:36)
--- NOTE | 2017-12-14 11:17 | NUR ---
WOUND CARE CONSULT WOUND CARE RECEIVED CONSULT FOR RIGHT AND LEFT HEEL WOUND RE-ASSESSMENTS AND WOUND TREATMENT. WOUND CARE WILL DEFER BOTH TO PODIATRY AND SURGICAL TEAM WHO ARE FOLLOWING AT THIS TIME.
--- NOTE | 2017-12-14 13:00 | NUR ---
TELE RNN NOTE TRACH SUCTION DONE, KEEP CLEAN DRY
--- NOTE | 2017-12-14 13:01 | NUR ---
SEAMSTRESS FITTER NOTE TRACH SUCTION DONE KEEP CLEAN DRY
--- NOTE | 2017-12-14 15:11 | NUR ---
RT RT PATIENT RECEIVED TRACH'D WITH PORTEX #7 CUFFED ON [facility] VENT WITH SETTINGS PER MD ORDER. AUTOMATION AND CONTROLS SUPERVISOR DONE. BILAT BREATH SOUNDS RHONCHI ON AUSCULTATION. TRACH SECURE AND AIRWAY PATENT. VENT PLUGGED INTO RED OUTLET. SUCTIONED SMALL AMOUNTS OF THICK, PALE YELLOW SECRETIONS. ALARMS ON AND WORKING PROPERLY. AMBU BAG AT HEAD OF BED. BREATHING TX'S GIVEN ORDERED. NO ADVERSE REACTIONS OBSERVED. NO SOB OR SIGNS OF DISTRESS NOTED AT THIS TIME. WILL CONTINUE TO MONITOR THE PATIENT. Addendum: 12/14/17 at 1731 by EBONI DE JESUS RT Amended: Links added.
--- NOTE | 2017-12-14 15:30 | NUR ---
SUCTION ROLLER NOTE TURN REPOSITION KEEP CLEAN DRY , NOT IN ACUTE DISTRES
[2017-12-14] MEDS: NS 0.9% IV SCH (17:52)
[2017-12-14] MEDS: CEFTAZIDIME IV SCH (17:52)
[2017-12-14] MEDS ORDERED: CEFEPIME 1 GM VIAL IM SCH (18:00)
--- NOTE | 2017-12-14 19:30 | NUR ---
RN NOTES RECEIVED PT. AWAKE, NON-VERBAL, VENT DEPENDENT, SR WITH BBB HR-82, ON G-TUBE FEEDING, NOVASOURCE RUNNING @ 35ML/HR, NOT IN DISTRESS, NO PAIN NOTED, SIDERAILSUPX2, CONTINUE TO MONITOR
[2017-12-14] MEDS: ATORVASTATIN 40 MG TABLET GT SCH (21:03)
[2017-12-14] MEDS: RENAL NOVASOURCE 1,000 ML BOTTLE GT PRN (23:50)
[2017-12-14] MEDS: IV NS 0.9% 250 ML IV PRN (23:51)
[2017-12-15] VITALS (8 sets, daily range): BP systolic 99–124; BP diastolic 50–62
[2017-12-15] MEDS: IPRATROPIUM NEB FS 0.5 MG/2.5 ML AMPUL.NEB NEB SCH ×4 (01:24→19:57)
[2017-12-15] MEDS: ALBUTEROL FS 2.5 MG/0.5 ML VIAL.NEB NEB SCH ×4 (01:24→19:57)
--- NOTE | 2017-12-15 05:56 | NUR ---
RT Pt trach remains on [facility] vent ordered settings. no resp distress. Addendum: 12/15/17 at 0556 by PEDRO HUTTON RT Amended: Links added.
[2017-12-15] MEDS: MIDODRINE HCL (5MG) 5 MG TABLET GT SCH ×3 (05:59→20:47)
--- NOTE | 2017-12-15 06:35 | NUR ---
RN NOTES AWAKE, G-TUBE FEEDING RUNNING, NO RESIDUAL NOTED, MORNING CARE RENDERED, PT IS NOT IN DISTRESS SIDERAILSUPX2, PT NEEDS ATTENDED
--- NOTE | 2017-12-15 07:30 | NUR ---
FINAL INSPECTOR BALANCE WHEEL INITIAL NOTES RECEIVED PATIENT IN BED, AOX1, HOB ELEVATED. VENT TRACH. RESTING CALM. HD TODAY, RAJAN 20G SL. LCW HD CATH. LAST HD 12/13/17, 1L OUT. ANURIC. . G-TUBE NOVASOURCE FEEDING, 35ML/HR RUNNING NO RESIDUAL NOTED. SR 80 BBB. BLE EDEMA. BED IN LOW LOCKED POSITION. CALL LIGHT IN REACH. URINE VRE ISOLATION PRECAUTIONS. WILL CONT TO MONITOR CLOSELY
[2017-12-15] MEDS: LACTOBACILLUS RHAMNOSUS GG 1 EACH CAP.SPRINK GT SCH ×2 (08:29→17:53)
[2017-12-15] MEDS: risperiDONE LIQUID 1 MG/ML ML GT SCH ×2 (08:29→20:49)
[2017-12-15] MEDS: ZINC SULFATE 220 MG CAPSULE GT SCH (08:29)
[2017-12-15] MEDS: DOCUSATE SODIUM LIQ 100 MG/10 ML UDC GT SCH ×2 (08:29→20:49)
[2017-12-15] MEDS: LINEZOLID RTU BAG 600 MG in PREMIX 1 EA IV SCH ×2 (08:29→21:02)
[2017-12-15] MEDS: POLYETHYLENE GLYCOL 3350 17 GM POWD.PACK GT SCH (08:30)
[2017-12-15] MEDS: ASPIRIN 81 MG TAB.CHEW GT SCH (08:30)
[2017-12-15] MEDS: VIT B CMPLX 3/FA/VIT C/BIOTIN 1 TAB TABLET GT SCH (08:30)
[2017-12-15] MEDS: PANTOPRAZOLE 40 MG/PACK PACK GT SCH (08:30)
[2017-12-15] MEDS: DAKINS QUARTER STRENGTH (0.125%) 480 ML BOTTLE TOP SCH (08:31)
[2017-12-15] MEDS: GENTAMICIN 0.1% OINT 15 GM TUBE TP SCH ×2 (08:31→17:53)
[2017-12-15] MEDS: Z GUARD REMEDY 2 OZ OINT TP SCH (08:32)
[2017-12-15] MEDS: CADEXOMER IODINE 40 GM TUBE TP SCH (08:32)
[2017-12-15] MEDS: PROSOURCE / PROSTAT (PYXIS) 30 ML UDC GT SCH ×2 (08:35→17:53)
--- NOTE | 2017-12-15 09:40 | NUR ---
CLOUD PHYSICIST NOTES PATIENT CURRENTLY RECEIVING HD, NO SIGNS OF DISTRESS, VITALS STABLE.
[2017-12-15] MEDS: GENTAMICIN 80 MG in IV D5W 50 ML IV PRN (14:43)
[2017-12-15 15:25] LABS: HEMOGLOBIN 7.6 g/dL (11.5-14.8)
[2017-12-15] MEDS: CEFTAZIDIME IV SCH (17:54)
[2017-12-15] MEDS: NS 0.9% IV SCH (17:54)
--- NOTE | 2017-12-15 17:59 | NUR ---
RT Pt trach remains on [facility] vent ordered settings. no resp distress. Addendum: 12/15/17 at 1759 by YAHAIRA ARELLANO RT Amended: Links added.
--- NOTE | 2017-12-15 19:04 | NUR ---
STREETCAR MOTORMAN NOTES PATIENT RESTING IN BED, ALL NEEDS MET, WILL ENDORSE TO TECHNICAL SALES ENGINEER FOR CONTINUITY OF CARE.
--- NOTE | 2017-12-15 19:59 | NUR ---
PT RCVD ON VENT WITH NOTED SETTINGS. PT IS ALERT AND AWAKE. VENTS PLUGGED INTO RED OUTLET, VENT ALARM WORKING AND AUDIBLE. BREATHING TX GIVEN PER MD'S ORDERED. NO ADVERSE REACTION AT THIS TIME. SUCTIONED MODERATE AMOUNT OF YELLOW THICK SECRETIONS. BILATERAL BS NOTED, NO RESPIRATORY DISTRESS NOTED AT THIS TIME. WILL CONTINUE TO MONITOR THE PT.
[2017-12-15] MEDS: EPOETIN ALFA (20,000 UNIT) 20,000 UNIT/ML VIAL SQ SCH (20:46)
[2017-12-15] MEDS: ATORVASTATIN 40 MG TABLET GT SCH (21:00)
[2017-12-16] VITALS: BP 121/58
[2017-12-16] MEDS: ALBUTEROL FS 2.5 MG/0.5 ML VIAL.NEB NEB SCH ×4 (01:53→19:16)
[2017-12-16] MEDS: IPRATROPIUM NEB FS 0.5 MG/2.5 ML AMPUL.NEB NEB SCH ×4 (01:53→19:16)
[2017-12-16 04:00] VITALS: BP 103/53
[2017-12-16] MEDS: MIDODRINE HCL (5MG) 5 MG TABLET GT SCH ×3 (05:32→21:17)
[2017-12-16 07:40] LABS: EOSINOPHILS # (AUTO) 0.6 /CMM (0.0-0.7); EOSINOPHILS % (AUTO) 3.9 % (0.0-6.0); HEMATOCRIT 24 % (33-45); HEMOGLOBIN 7.9 g/dL (11.5-14.8); LYMPHOCYTES % (AUTO) 6.3 % (20.0-44.0); MEAN CORPUSCULAR HEMOGLOBIN 31 PG (26.0-33.0); MEAN CORPUSCULAR HGB CONC 33 g/dl (31.0-36.0); MEAN CORPUSCULAR VOLUME 92 fL (82-100); NEUTROPHILS # (AUTO) 13.2 /CMM (1.8-8.9); NEUTROPHILS % (AUTO) 83.8 % (43.0-81.0); PLATELET COUNT (AUTO) 266 /CMM (150-450); RDW COEFFICIENT OF VARIATION 19.1 (11.5-15.0); RED BLOOD CELL COUNT(AUTO) 2.58 MIL/uL (4.0-5.2); WHITE BLOOD COUNT (AUTO) 15.8 K/uL (4.3-11.0)
[2017-12-16 07:48] LABS: CALCIUM, SERUM 8.4 mg/dL (8.5-10.1); CARBON DIOXIDE 30 mmol/L (21-32); CHLORIDE 95 mmol/L (98-107); CREATININE 2.9 mg/dL (0.6-1.3); GLUCOSE 102 mg/dL (74-106); MAGNESIUM 2.1 mg/dL (1.8-2.4); PHOSPHORUS 3.6 mg/dL (2.5-4.9); POTASSIUM 4.2 mmol/L (3.5-5.1); SODIUM SERUM 135 mmol/L (136-145); UREA NITROGEN, BLOOD 58 mg/dL (7-18)
[2017-12-16 08:00] VITALS: BP 108/58
--- NOTE | 2017-12-16 08:00 | NUR ---
- RN opening notes - received patient alert, opens eyes, with trach collar connected to vent with same settings, non-labored respirations, GT in & connected to feeding pump, with IV midline at RAJAN , patent connected to IV infusing well via pump .
[2017-12-16] MEDS: ZINC SULFATE 220 MG CAPSULE GT SCH (08:50)
[2017-12-16] MEDS: VIT B CMPLX 3/FA/VIT C/BIOTIN 1 TAB TABLET GT SCH (08:50)
[2017-12-16] MEDS: LACTOBACILLUS RHAMNOSUS GG 1 EACH CAP.SPRINK GT SCH ×2 (08:50→16:58)
[2017-12-16] MEDS: LINEZOLID RTU BAG 600 MG in PREMIX 1 EA IV SCH (08:50)
[2017-12-16] MEDS: PROSOURCE / PROSTAT (PYXIS) 30 ML UDC GT SCH ×2 (08:50→16:58)
[2017-12-16] MEDS: POLYETHYLENE GLYCOL 3350 17 GM POWD.PACK GT SCH (08:50)
[2017-12-16] MEDS: DOCUSATE SODIUM LIQ 100 MG/10 ML UDC GT SCH ×2 (08:50→21:17)
[2017-12-16] MEDS: PANTOPRAZOLE 40 MG/PACK PACK GT SCH (08:50)
[2017-12-16] MEDS: DAKINS QUARTER STRENGTH (0.125%) 480 ML BOTTLE TOP SCH (08:51)
[2017-12-16] MEDS: GENTAMICIN 0.1% OINT 15 GM TUBE TP SCH ×2 (08:52→17:01)
[2017-12-16] MEDS: CADEXOMER IODINE 40 GM TUBE TP SCH (08:54)
[2017-12-16] MEDS: ASPIRIN 81 MG TAB.CHEW GT SCH (08:57)
[2017-12-16] MEDS: risperiDONE LIQUID 1 MG/ML ML GT SCH ×2 (09:00→21:17)
[2017-12-16] MEDS: Z GUARD REMEDY 2 OZ OINT TP SCH (09:03)
--- NOTE | 2017-12-16 11:00 | NUR ---
- Visited by Dr. Lehman, ID, no new orders made, maintained on Contact Isolation
[2017-12-16 12:00] VITALS: BP 93/50
--- NOTE | 2017-12-16 13:17 | NUR ---
RECEIVED PT TRACH'D WITH PORTEX #[address] [facility] VENT WITH SETTINGS PER MD ORDER. BILATERAL RHONCHI BREATH SOUNDS HEARD UPON AUSCULTATION. TRACH SECURE AND AIRWAY PATENT. VENT PLUGGED INTO RED OUTLET. SUCTIONED MODERATE AMOUNTS OF THICK, PALE YELLOW SECRETIONS. VENT ALARMS SET AND WORKING PROPERLY. AMBU BAG AT. WILL CONTINUE TO MONITOR PT. Addendum: 12/16/17 at 1320 by SAVANAH VERDUGO RT Amended: Links added.
[2017-12-16 16:00] VITALS: BP 107/57
[2017-12-16] MEDS: CEFTAZIDIME IV SCH (17:27)
[2017-12-16] MEDS: NS 0.9% IV SCH (17:27)
--- NOTE | 2017-12-16 18:06 | NUR ---
RN CLOSING Notes - patient in low Harrison's position with continous gt feeding via pump , with trach coller connected to a vent with same sttings, non-labored respirations, maintained on IV antibiotics due to MDRO , on HD MWF, with permacath as hd access, patient is anuric, wound care treatment given , repositioned q 2 hours, both heels allowed to float with 1 pillow support. No nausea & vomiting noted the whole shift, o GT residual . l
[2017-12-16 20:00] VITALS: BP 113/16
--- NOTE | 2017-12-16 20:00 | NUR ---
RN NOTES RECEIVED PATIENT WITH EYES OPEN IN BED. EYE TRACKING NOTED. NO DISTRESS, BREATHING EVEN AND UNLABORED. VENT SETTING WELL TOLERATED. ALERT AND RESPONSIVE. NO PHYSICAL MANIFESTATION OF PAIN OR DISCOMFORT. GTUBE FEEDING WELL TOLERATED. HOB ELEVATED. NEEDS ATTENDED. KEPT CLEAN AND DRY.
[2017-12-16] MEDS: ATORVASTATIN 40 MG TABLET GT SCH (21:17)
[2017-12-17] VITALS: BP 118/63
[2017-12-17] MEDS: ALBUTEROL FS 2.5 MG/0.5 ML VIAL.NEB NEB SCH ×4 (01:16→20:09)
[2017-12-17] MEDS: IPRATROPIUM NEB FS 0.5 MG/2.5 ML AMPUL.NEB NEB SCH ×4 (01:16→20:09)
[2017-12-17 04:00] VITALS: BP 103/52
[2017-12-17] MEDS: MIDODRINE HCL (5MG) 5 MG TABLET GT SCH ×3 (05:30→20:57)
--- NOTE | 2017-12-17 06:22 | NUR ---
RN CLOSING NOTES PATIENT IN BED, RESTING COMFORTABLY. BREATHING EVEN AND UNLABORED. NO FACIAL GRIMACE OR SIGN SYMPTOM OF PAIN OR DISCOMFORT NO SIGNIFICANT CHANGE OF CONDITION, NEEDS ATTENDED. KEPT CLEAN AND DRY.WILL ENDORSE TO AM SHIFT FOR CONTINUITY OF CARE.
[2017-12-17 07:12] LABS: EOSINOPHILS # (AUTO) 0.6 /CMM (0.0-0.7); EOSINOPHILS % (AUTO) 4.8 % (0.0-6.0); HEMATOCRIT 23 % (33-45); HEMOGLOBIN 7.4 g/dL (11.5-14.8); LYMPHOCYTES # (AUTO) 0.9 /CMM (0.8-4.8); LYMPHOCYTES % (AUTO) 7.8 % (20.0-44.0); MEAN CORPUSCULAR HEMOGLOBIN 30 PG (26.0-33.0); MEAN CORPUSCULAR HGB CONC 33 g/dl (31.0-36.0); MEAN CORPUSCULAR VOLUME 91 fL (82-100); MONOCYTES # (AUTO) 0.7 /CMM (0.1-1.30); MONOCYTES % (AUTO) 5.8 % (2.0-12.0); NEUTROPHILS # (AUTO) 9.8 /CMM (1.8-8.9); NEUTROPHILS % (AUTO) 81.6 % (43.0-81.0); PLATELET COUNT (AUTO) 262 /CMM (150-450); RED BLOOD CELL COUNT(AUTO) 2.49 MIL/uL (4.0-5.2)
--- NOTE | 2017-12-17 07:20 | NUR ---
RN NOTES RECEIVED PATIENT RESTING COMFORTABLY IN BED, EASILY AROUSABLE DURING CARE. CURRENTLY ON MECHANICAL VENTILATION TOLERATING CURRENT SETTINGS WELL. IN NO APPARENT PAIN OR DISCOMFORT AT THIS TIME. IV ACCESS TO PATENT AND INTACT, NO REDNESS OR INFILTRATION NOTED. CURRENTLY ON TUBE FEEDING TOLERATED WELL. SAFETY MEASURES IN PLACE, KEPT CLEAN DRY AND COMFORTABLE, CALL LIGHT WITHIN EASY REACH
[2017-12-17 07:30] LABS: CALCIUM, SERUM 8.4 mg/dL (8.5-10.1); CARBON DIOXIDE 31 mmol/L (21-32); CHLORIDE 92 mmol/L (98-107); CREATININE 3.5 mg/dL (0.6-1.3); GLUCOSE 90 mg/dL (74-106); MAGNESIUM 2.1 mg/dL (1.8-2.4); POTASSIUM 4.3 mmol/L (3.5-5.1); SODIUM SERUM 131 mmol/L (136-145); UREA NITROGEN, BLOOD 78 mg/dL (7-18)
[2017-12-17 08:00] VITALS: BP_SYST 119; BP_SYST 141; BP_DIAS 67; BP_DIAS 79
[2017-12-17] MEDS: ZINC SULFATE 220 MG CAPSULE GT SCH (08:55)
[2017-12-17] MEDS: DOCUSATE SODIUM LIQ 100 MG/10 ML UDC GT SCH ×2 (08:55→20:56)
[2017-12-17] MEDS: VIT B CMPLX 3/FA/VIT C/BIOTIN 1 TAB TABLET GT SCH (08:55)
[2017-12-17] MEDS: ASPIRIN 81 MG TAB.CHEW GT SCH (08:55)
[2017-12-17] MEDS: PANTOPRAZOLE 40 MG/PACK PACK GT SCH (08:55)
[2017-12-17] MEDS: LACTOBACILLUS RHAMNOSUS GG 1 EACH CAP.SPRINK GT SCH ×2 (08:55→18:29)
[2017-12-17] MEDS: POLYETHYLENE GLYCOL 3350 17 GM POWD.PACK GT SCH (08:55)
[2017-12-17] MEDS: PROSOURCE / PROSTAT (PYXIS) 30 ML UDC GT SCH ×2 (09:00→16:32)
[2017-12-17] MEDS: GENTAMICIN 0.1% OINT 15 GM TUBE TP SCH ×2 (09:01→16:33)
[2017-12-17] MEDS: Z GUARD REMEDY 2 OZ OINT TP SCH (09:01)
[2017-12-17] MEDS: CADEXOMER IODINE 40 GM TUBE TP SCH (09:02)
[2017-12-17] MEDS: risperiDONE LIQUID 1 MG/ML ML GT SCH ×2 (09:07→20:56)
[2017-12-17] MEDS: DAKINS QUARTER STRENGTH (0.125%) 480 ML BOTTLE TOP SCH (09:07)
[2017-12-17 12:00] VITALS: BP 104/55
[2017-12-17 16:00] VITALS: BP 107/59
[2017-12-17] MEDS: CEFTAZIDIME IV SCH (18:29)
[2017-12-17] MEDS: NS 0.9% IV SCH (18:29)
[2017-12-17] MEDS: RENAL NOVASOURCE 1,000 ML BOTTLE GT PRN (18:31)
[2017-12-17] MEDS: GENTAMICIN 80 MG in IV D5W 50 ML IV PRN (18:33)
--- NOTE | 2017-12-17 19:15 | NUR ---
MS ESTEVEZ NOTES: RECEIVED PT IN BED AND IS IN SEMI QUINTERO' POSITION. PT OPENS EYES AND CAN MOUTH WORDS. PT ON PORTEX #8 WITH VENT SETTINGS AC 12, TV 450, FIO2 40%, AND PEEP 5. PT HAS G TUBE AND NO RESIDUAL NOTED. PT ON NOVASOURCE FEEDING AT 35CC/HR. PT HAS RAJAN MIDLINE AND IS BEING INFUSED WITH NS TKO. PT ALSO HAS RAJAN #20G AND IS CURRENTLY S/L. NOTED L SUBCLAVIAN HD CATH AND IS INTACT. PT HAS CALL LIGHT WITHIN REACH. BED KEPT IN LOW, LOCKED POSITION, AND SIDE RAILS X 3 UP. WILL CONTINUE TO MONITOR PT. Addendum: 12/18/17 at 0636 by HERON DELVALLE RN CASSIDY ESTEVEZ NOTES
--- NOTE | 2017-12-17 19:40 | NUR ---
RN NOTES PATIENT RESTING COMFORTABLY IN BED, EASILY AROUSABLE DURING CARE. CURRENTLY ON MECHANICAL VENTILATION TOLERATING CURRENT SETTINGS WELL. IN NO APPARENT PAIN OR DISCOMFORT AT THIS TIME. IV ACCESS TO PATENT AND INTACT, NO REDNESS OR INFILTRATION NOTED. CURRENTLY ON TUBE FEEDING TOLERATED WELL. SAFETY MEASURES IN PLACE, KEPT CLEAN DRY AND COMFORTABLE, CALL LIGHT WITHIN EASY REACH
[2017-12-17 20:00] VITALS: BP 120/69
--- NOTE | 2017-12-17 20:09 | NUR ---
PT ON VENT. VENT PLUGGED INTO RED OUTLET, VENT ALARM TESTED FOUND AUDIBLE AND IN RANGE. BREATHING TX GIVEN PER MD'S ORDERED. NO ADVERSE REACTION AT THIS TIME. SUCTIONED PRN. NO RESPIRATORY DISTRESS NOTED AT THIS TIME. WILL CONTINUE TO MONITOR THE PT.
[2017-12-17] MEDS: ATORVASTATIN 40 MG TABLET GT SCH (21:00)
[2017-12-18] VITALS: BP 106/60
[2017-12-18] MEDS: IPRATROPIUM NEB FS 0.5 MG/2.5 ML AMPUL.NEB NEB SCH ×4 (02:19→20:17)
[2017-12-18] MEDS: ALBUTEROL FS 2.5 MG/0.5 ML VIAL.NEB NEB SCH ×4 (02:19→20:17)
[2017-12-18 04:00] VITALS: BP 107/57
[2017-12-18] MEDS: MIDODRINE HCL (5MG) 5 MG TABLET GT SCH ×3 (04:26→20:48)
--- NOTE | 2017-12-18 06:36 | NUR ---
SHIPPING AND RECEIVING SPECIALIST CLOSING NOTES: ALL NEEDS WERE ATTENDED AND ANTICIPATED FOR. PT IN BED AND IS IN SEMI QUINTERO' POSITION. PT ASLEEP AT THIS TIME. PT ON PORTEX #8 WITH VENT SETTINGS AC 12, TV 450, FIO2 40%, AND PEEP 5. PT HAS G TUBE AND NO RESIDUAL NOTED. PT ON NOVASOURCE FEEDING AT 35CC/HR. PT HAS RAJAN MIDLINE AND IS BEING INFUSED WITH NS AT TKO. PT ALSO HAS RAJAN #20G AND IS CURRENTLY S/L. NOTED L SUBCLAVIAN HD CATH AND IS INTACT. PT HAS CALL LIGHT WITHIN REACH. BED KEPT IN LOW, LOCKED POSITION, AND SIDE RAILS X 3 UP. PT ON TELE BOX AND READING SHOWS SR 78 WITH BBBS. WILL ENDORSE TO AM NURSE FOR SATISH.
--- NOTE | 2017-12-18 07:30 | NUR ---
PT RECEIVED RESTING COMFORTABLY IN BED. NO S/S OR C/O PAIN OR DISTRESS NOTED. SIDE RAILS UP X2, CALL LIGHT LEFT WITHIN REACH. WILL CONTINUE PLAN OF CARE.
[2017-12-18 08:00] VITALS: BP 115/65
[2017-12-18] MEDS: POLYETHYLENE GLYCOL 3350 17 GM POWD.PACK GT SCH (09:14)
[2017-12-18] MEDS: ZINC SULFATE 220 MG CAPSULE GT SCH (09:14)
[2017-12-18] MEDS: DOCUSATE SODIUM LIQ 100 MG/10 ML UDC GT SCH ×2 (09:14→20:47)
[2017-12-18] MEDS: LACTOBACILLUS RHAMNOSUS GG 1 EACH CAP.SPRINK GT SCH ×2 (09:14→16:24)
[2017-12-18] MEDS: risperiDONE LIQUID 1 MG/ML ML GT SCH ×2 (09:14→20:48)
[2017-12-18] MEDS: ASPIRIN 81 MG TAB.CHEW GT SCH (09:14)
[2017-12-18] MEDS: VIT B CMPLX 3/FA/VIT C/BIOTIN 1 TAB TABLET GT SCH (09:14)
[2017-12-18] MEDS: PANTOPRAZOLE 40 MG/PACK PACK GT SCH (09:14)
[2017-12-18] MEDS: PROSOURCE / PROSTAT (PYXIS) 30 ML UDC GT SCH ×2 (09:15→16:24)
[2017-12-18] MEDS: DAKINS QUARTER STRENGTH (0.125%) 480 ML BOTTLE TOP SCH (09:30)
[2017-12-18] MEDS: CADEXOMER IODINE 40 GM TUBE TP SCH (09:31)
[2017-12-18] MEDS: Z GUARD REMEDY 2 OZ OINT TP SCH (09:31)
[2017-12-18] MEDS: GENTAMICIN 0.1% OINT 15 GM TUBE TP SCH ×2 (09:31→16:33)
[2017-12-18 12:00] VITALS: BP 129/68
[2017-12-18] MEDS: MORPHINE SULFATE INJ 4 MG/ML DISP.SYRIN IV PRN (14:03)
[2017-12-18 16:00] VITALS: BP 108/56
[2017-12-18] MEDS: EPOETIN ALFA (20,000 UNIT) 20,000 UNIT/ML VIAL SQ SCH (16:24)
--- NOTE | 2017-12-18 18:23 | NUR ---
RT END OF THE SHIFT REPORT PT. 72 Y OLD FEMALE REMAIN TRACH'D PORTEX # 7 AND ON VENT WITH NOTED SETTINGS, ALARMS ARE SET AND FUNCTIONAL. TX'S GIVEN INLINE AND NO DADVERSE REACTION NOTED. NO DISTRESS NOTED T/O SHIFT. B/S BILATERALLY RHONCHI. EQUAL CHEST RISE NOTED. SUX'D FOR MINIMUM AMT. YELLOWISH SECRETIONS, NO CHANGES AND CONTINUE FOR MONITOR AND CARE FOR PT. AMBU BAG REMAIN AT THE BEDSIDE. VENT PLUGGED INTO RED OUTLET. HME CHANGED, REPORT WILL PASS TO PM SHIFT. Addendum: 12/18/17 at 1824 by LEONORA WYNNE RT Amended: Links added.
--- NOTE | 2017-12-18 19:42 | NUR ---
CHANGE OF SHIFT REPORT PT RESTING COMFORTABLY IN BED. NO S/S OR C/O PAIN OR DISTRESS NOTED. SIDE RAILS UP X2, CALL LIGHT LEFT WITHIN REACH. PT KEPT CLEAN DRY, AND COMFORTABLE. NO SIGNIFICANT CHANGES SINCE PREVIOUS SHIFT. REPORT GIVEN TO ENRIQUE ESTEVEZ.
[2017-12-18 20:00] VITALS: BP 100/53
--- NOTE | 2017-12-18 20:00 | NUR ---
TELE/RN OPENING NOTES RECEIVED PATIENT IN BED, RESTING COMFORTABLY IN BED. ABLE TO OPEN EYES AND NOD, CAN FOLLOW SIMPLE COMMANDS, ON TRAECH WITH SETTING PRESCRIBED, TELE AT SR 78 BBB, ANURIC M REQUIRE REPOSTION, SKIN ISSIUES WITH TREATMENT PRESCRIBED ON SACRAL AREA AN BILATERAL HEELS, ON GTUBE, WITH NO RESIDUALS. RAJAN MIDLINE PATENT, MONITORING FOR BLEEDING, WILL CONTINUE TO MONITOR.
[2017-12-18] MEDS: ATORVASTATIN 40 MG TABLET GT SCH (20:48)
[2017-12-19] VITALS (7 sets, daily range): BP systolic 97–119; BP diastolic 54–65
[2017-12-19] MEDS: MORPHINE SULFATE INJ 4 MG/ML DISP.SYRIN IV PRN (00:54)
[2017-12-19] MEDS: ALBUTEROL FS 2.5 MG/0.5 ML VIAL.NEB NEB SCH ×4 (02:27→20:10)
[2017-12-19] MEDS: IPRATROPIUM NEB FS 0.5 MG/2.5 ML AMPUL.NEB NEB SCH ×4 (02:27→20:10)
[2017-12-19] MEDS: RENAL NOVASOURCE 1,000 ML BOTTLE GT PRN (04:43)
[2017-12-19] MEDS: MIDODRINE HCL (5MG) 5 MG TABLET GT SCH ×3 (05:18→21:25)
--- NOTE | 2017-12-19 05:58 | NUR ---
RECEIVED PT ON VENT WITH NOTED SETTINGS, ALARMS ARE SET AND FUNCTIONAL. NO DISTRESS NOTED T/O SHIFT.B/S BILATERALLY RHONCHI. EQUAL CHEST RISE NOTED. COPIOUS AMOUNTS OF THICK WHITE/CREAMY SECRETIONS SUCTION. AMBU BAG REMAIN AT THE BEDSIDE. VENT PLUGGED INTO RED OUTLET.
--- NOTE | 2017-12-19 06:31 | NUR ---
TELE/RN NOTES PATIENT IN BED, HOB ELEVATE, CAN OPEN EYES AND OPEN MOUTH, , ON MECHANICAL VENT W/ ORDER SETTING, WITH MODERATE SRCRETIONS, SKIN WARM TO TOUCH, GTUBE INTACT, PATENT WITH ZERO RESIDUAL, BILATERAL UPPER EXTREMITIES EDEMA +3. EXTENSIVE ASSISTANCE FOR TURNING AND REPOSITION, KEEP COMFORTABLE, WHITE CATHETER WITH DARK COLORED URINE NOTED. NO GRIMACE AND NO GUARDING, WILL ENDORSE TO AM RN FOR SATISH. Addendum: 12/19/17 at 0636 by MADDY FRANK RN PLS DISREGARD FOR DIFFERENT PATIENT
--- NOTE | 2017-12-19 06:36 | NUR ---
TELE/RN CLOSING NOTES PATIENT IN BED, RESTING COMFORTABLY IN BED, CAN OPEN EYES AND MAKE SOME SOUNDS, ON MECHANICAL VENT WITH REQUIRED SETTING, EXTENSIVE ASSISTANCE IN REPOSITON AND TURNING, WOUND ON SACRAL AREA AND BILATERAL HEEL, OFF LOAD EXTREMITIES, KEEP WARM, GTUBE PATENT WITH NO RESIDUAL, ABED IN LOCK POSITION. WILL ENDORSE TO AM RN FOR SATISH.
[2017-12-19 07:28] LABS: CALCIUM, SERUM 8.6 mg/dL (8.5-10.1); CARBON DIOXIDE 30 mmol/L (21-32); CHLORIDE 97 mmol/L (98-107); CREATININE 3.3 mg/dL (0.6-1.3); GLUCOSE 88 mg/dL (74-106); POTASSIUM 4.8 mmol/L (3.5-5.1); SODIUM SERUM 134 mmol/L (136-145)
[2017-12-19 07:29] LABS: UREA NITROGEN, BLOOD 80 mg/dL (7-18)
[2017-12-19 08:05] LABS: GENTAMICIN,TROUGH 3.1 ug/ml (0.2-2.0)
[2017-12-19 08:12] LABS: BASOPHILS % (AUTO) 0.2 % (0.0-2.0); EOSINOPHILS # (AUTO) 0.7 /CMM (0.0-0.7); EOSINOPHILS % (AUTO) 6.1 % (0.0-6.0); HEMATOCRIT 22 % (33-45); HEMOGLOBIN 7.2 g/dL (11.5-14.8); LYMPHOCYTES # (AUTO) 1.1 /CMM (0.8-4.8); LYMPHOCYTES % (AUTO) 10.2 % (20.0-44.0); MEAN CORPUSCULAR HEMOGLOBIN 31 PG (26.0-33.0); MEAN CORPUSCULAR HGB CONC 33 g/dl (31.0-36.0); MEAN CORPUSCULAR VOLUME 92 fL (82-100); MONOCYTES # (AUTO) 0.8 /CMM (0.1-1.30); MONOCYTES % (AUTO) 7.3 % (2.0-12.0); NEUTROPHILS # (AUTO) 8.6 /CMM (1.8-8.9); NEUTROPHILS % (AUTO) 76.2 % (43.0-81.0); PLATELET COUNT (AUTO) 245 /CMM (150-450); RDW COEFFICIENT OF VARIATION 18.8 (11.5-15.0); RED BLOOD CELL COUNT(AUTO) 2.35 MIL/uL (4.0-5.2); WHITE BLOOD COUNT (AUTO) 11.2 K/uL (4.3-11.0)
[2017-12-19] MEDS ORDERED: ALBUMIN 25% 25 GM in PREMIX 1 EA IV PRN (08:30)
--- NOTE | 2017-12-19 08:30 | NUR ---
MS RN RECEIVED PATIENT, ON DIALYSIS RIGHT NOW, MEDS WILL BE HELD AT THIS TIME, TILL HD DONE, NO DISTRESS NOTED.
--- NOTE | 2017-12-19 10:00 | NUR ---
MS PUBLIC SAFETY OFFICER DONE AT THIS TIME, WILL GIVE MEDS LATER.
[2017-12-19] MEDS: POLYETHYLENE GLYCOL 3350 17 GM POWD.PACK GT SCH (11:58)
[2017-12-19] MEDS: DOCUSATE SODIUM LIQ 100 MG/10 ML UDC GT SCH ×2 (11:58→21:24)
[2017-12-19] MEDS: VIT B CMPLX 3/FA/VIT C/BIOTIN 1 TAB TABLET GT SCH (11:58)
[2017-12-19] MEDS: PANTOPRAZOLE 40 MG/PACK PACK GT SCH (11:59)
[2017-12-19] MEDS: ASPIRIN 81 MG TAB.CHEW GT SCH (11:59)
[2017-12-19] MEDS: LACTOBACILLUS RHAMNOSUS GG 1 EACH CAP.SPRINK GT SCH ×2 (12:00→18:50)
[2017-12-19] MEDS: ZINC SULFATE 220 MG CAPSULE GT SCH (12:00)
[2017-12-19] MEDS: DAKINS QUARTER STRENGTH (0.125%) 480 ML BOTTLE TOP SCH (12:01)
[2017-12-19] MEDS: CADEXOMER IODINE 40 GM TUBE TP SCH (12:02)
[2017-12-19] MEDS: Z GUARD REMEDY 2 OZ OINT TP SCH (12:03)
[2017-12-19] MEDS: GENTAMICIN 0.1% OINT 15 GM TUBE TP SCH ×2 (12:04→18:51)
[2017-12-19] MEDS: PROSOURCE / PROSTAT (PYXIS) 30 ML UDC GT SCH ×2 (12:08→18:50)
[2017-12-19] MEDS: risperiDONE LIQUID 1 MG/ML ML GT SCH ×2 (18:50→21:24)
[2017-12-19] MEDS: ATORVASTATIN 40 MG TABLET GT SCH (21:24)
[2017-12-19] MEDS: GENTAMICIN 80 MG in IV D5W 50 ML IV PRN (23:30)
[2017-12-20] VITALS: BP 103/55
[2017-12-20] MEDS: ALBUTEROL FS 2.5 MG/0.5 ML VIAL.NEB NEB SCH ×4 (02:05→19:24)
[2017-12-20] MEDS: IPRATROPIUM NEB FS 0.5 MG/2.5 ML AMPUL.NEB NEB SCH ×4 (02:05→19:24)
[2017-12-20 04:00] VITALS: BP 117/62
[2017-12-20] MEDS: RENAL NOVASOURCE 1,000 ML BOTTLE GT PRN (05:06)
[2017-12-20] MEDS: MIDODRINE HCL (5MG) 5 MG TABLET GT SCH ×3 (05:07→22:35)
[2017-12-20 06:23] LABS: BASOPHILS % (AUTO) 0.3 % (0.0-2.0); EOSINOPHILS # (AUTO) 0.5 /CMM (0.0-0.7); EOSINOPHILS % (AUTO) 4.3 % (0.0-6.0); HEMATOCRIT 22 % (33-45); HEMOGLOBIN 7.4 g/dL (11.5-14.8); LYMPHOCYTES # (AUTO) 1.1 /CMM (0.8-4.8); LYMPHOCYTES % (AUTO) 9.1 % (20.0-44.0); MEAN CORPUSCULAR HEMOGLOBIN 31 PG (26.0-33.0); MEAN CORPUSCULAR HGB CONC 33 g/dl (31.0-36.0); MEAN CORPUSCULAR VOLUME 93 fL (82-100); MONOCYTES % (AUTO) 8.1 % (2.0-12.0); NEUTROPHILS # (AUTO) 9.8 /CMM (1.8-8.9); NEUTROPHILS % (AUTO) 78.2 % (43.0-81.0); PLATELET COUNT (AUTO) 235 /CMM (150-450); RDW COEFFICIENT OF VARIATION 19.4 (11.5-15.0); RED BLOOD CELL COUNT(AUTO) 2.41 MIL/uL (4.0-5.2); WHITE BLOOD COUNT (AUTO) 12.5 K/uL (4.3-11.0)
[2017-12-20 06:27] LABS: CALCIUM, SERUM 8.6 mg/dL (8.5-10.1); CARBON DIOXIDE 31 mmol/L (21-32); CHLORIDE 100 mmol/L (98-107); CREATININE 2.8 mg/dL (0.6-1.3); GLUCOSE 95 mg/dL (74-106); MAGNESIUM 2.2 mg/dL (1.8-2.4); PHOSPHORUS 2.8 mg/dL (2.5-4.9); POTASSIUM 4.3 mmol/L (3.5-5.1); SODIUM SERUM 138 mmol/L (136-145); UREA NITROGEN, BLOOD 65 mg/dL (7-18)
--- NOTE | 2017-12-20 06:58 | NUR ---
CIVIL ENGINEERING TECHNICIAN NOTES, PATIENT IN BE SLEEPING, ON VENT SETTINGS , NO SOB OR ACUTE DISTRESS NOTED AT THIS TIME, RAJAN PICC LINE AND PIV LINE IN RIGHT FA INTACT AND PATENT, KEPT DRY AND CLEAN, GTF INFUSING WELL AND PATIENT TOLERATED WELL, HOB ELEVATED AT ALL TIMES FOR ASPIRATION PRECAUTIONS, BED LOCKED AND IN LOWEST POSITION, CALL LIGHT W/I REACH, WILL ENDORSE CONTINUITY OF CARE TO NEXT SHIFT NURSE
[2017-12-20 08:00] VITALS: BP 121/68
[2017-12-20] MEDS: ZINC SULFATE 220 MG CAPSULE GT SCH (09:52)
[2017-12-20] MEDS: LACTOBACILLUS RHAMNOSUS GG 1 EACH CAP.SPRINK GT SCH ×2 (09:52→17:08)
[2017-12-20] MEDS: POLYETHYLENE GLYCOL 3350 17 GM POWD.PACK GT SCH (09:52)
[2017-12-20] MEDS: VIT B CMPLX 3/FA/VIT C/BIOTIN 1 TAB TABLET GT SCH (09:52)
[2017-12-20] MEDS: risperiDONE LIQUID 1 MG/ML ML GT SCH ×2 (09:52→22:34)
[2017-12-20] MEDS: ASPIRIN 81 MG TAB.CHEW GT SCH (09:52)
[2017-12-20] MEDS: PANTOPRAZOLE 40 MG/PACK PACK GT SCH (09:52)
[2017-12-20] MEDS: PROSOURCE / PROSTAT (PYXIS) 30 ML UDC GT SCH ×2 (09:52→17:09)
[2017-12-20] MEDS: DOCUSATE SODIUM LIQ 100 MG/10 ML UDC GT SCH ×2 (09:52→22:34)
[2017-12-20] MEDS: DAKINS QUARTER STRENGTH (0.125%) 480 ML BOTTLE TOP SCH (09:55)
[2017-12-20] MEDS: CADEXOMER IODINE 40 GM TUBE TP SCH (09:56)
[2017-12-20] MEDS: Z GUARD REMEDY 2 OZ OINT TP SCH (09:56)
[2017-12-20] MEDS: GENTAMICIN 0.1% OINT 15 GM TUBE TP SCH ×2 (09:57→17:09)
[2017-12-20 12:19] VITALS: BP 127/69
[2017-12-20] MEDS: EPOETIN ALFA (20,000 UNIT) 20,000 UNIT/ML VIAL SQ SCH (15:23)
[2017-12-20 16:20] VITALS: BP 124/75
--- NOTE | 2017-12-20 19:06 | NUR ---
TELE FIELD MARKETING MANAGER CLOSING NOTE, PATIENT STABLE A0X 1-2, SIDE RAILS UPX4, BED LOWEST POSITION, CALL LIGHT IN REACH, 02 SAT 94-96%, VS STABLE. GENTAMYCIN TO BE HELD DUE TO TROUGH OF 3.1 12/19/17 PROJECT ECONOMIST TO F/U WITH AM LABS. PATIENT IS TO BE DISCHARGED ORDER BY MADDY FRAZIER. CALLED [facility] [phone] AND THEY DIDNT HAVE SPACE AVAILABLE, CHARGE NURSE AWARE. PATIENT TO CONTINUE CARE AT [facility]. WILL ENDORSE TO PROJECT ECONOMIST NURSE.
[2017-12-20 20:00] VITALS: BP 118/70
--- NOTE | 2017-12-20 21:40 | NUR ---
Received pt on vent support, pt is stable on current vent settings, no SOB or distress noted, alarms are on and audible,ventiletor is plugged into red outlet, ambu bag at bedside, will continue monitoring per MDS orders. Addendum: 12/20/17 at 2140 by CORRINA VASQUES RT Amended: Links added.
[2017-12-20] MEDS: ATORVASTATIN 40 MG TABLET GT SCH (22:35)
[2017-12-21] VITALS: BP 129/78
[2017-12-21] MEDS: IPRATROPIUM NEB FS 0.5 MG/2.5 ML AMPUL.NEB NEB SCH ×4 (01:24→19:08)
[2017-12-21] MEDS: ALBUTEROL FS 2.5 MG/0.5 ML VIAL.NEB NEB SCH ×4 (01:24→19:08)
[2017-12-21 04:00] VITALS: BP 106/61
[2017-12-21] MEDS: MIDODRINE HCL (5MG) 5 MG TABLET GT SCH ×3 (05:14→21:00)
--- NOTE | 2017-12-21 06:28 | NUR ---
RN CLOSING NOTES PATIENT WITH NO ACUTE CHANGE IN CONDITION OBSERVED OVERNIGHT. PATIENT IN NO DISTRESS. REMAINS SR WITH BBB, WITH HR IN THE 80s. PATIENT ON MECH VENT SUPPORT, TOLERATING SETTINGS WELL, NO RESPIRATORY DISTRESS. AIRWAY SUCTIONED AND KEPT CLEAR. GTF TOLERATED WELL, NO RESIDUAL. HOB ELEVATED. RAJAN MIDLINE INTACT. WOUND CARE RENDERED ORDERED. TURNED AND REPOSITIONED [id number] AND PRN, SPECIALTY MATTRESS IN PLACE. TRACH CARE DONE. SAFETY AND COMFORT ENSURED. BED IN LOW AND LOCKED POSITION. CALL LIGHT IN REACH. WILL ENDORSE ACCORDINGLY FOR CONTINUITY OF CARE.
[2017-12-21 07:25] LABS: CALCIUM, SERUM 8.7 mg/dL (8.5-10.1); CARBON DIOXIDE 29 mmol/L (21-32); CHLORIDE 99 mmol/L (98-107); CREATININE 3.5 mg/dL (0.6-1.3); GLUCOSE 121 mg/dL (74-106); MAGNESIUM 2.2 mg/dL (1.8-2.4); PHOSPHORUS 3.3 mg/dL (2.5-4.9); POTASSIUM 4.4 mmol/L (3.5-5.1); SODIUM SERUM 136 mmol/L (136-145)
[2017-12-21 07:38] LABS: UREA NITROGEN, BLOOD 87 mg/dL (7-18)
[2017-12-21 07:39] LABS: BASOPHILS % (AUTO) 0.1 % (0.0-2.0); EOSINOPHILS # (AUTO) 0.9 /CMM (0.0-0.7); EOSINOPHILS % (AUTO) 5.8 % (0.0-6.0); HEMATOCRIT 24 % (33-45); HEMOGLOBIN 7.8 g/dL (11.5-14.8); LYMPHOCYTES % (AUTO) 6.4 % (20.0-44.0); MEAN CORPUSCULAR HEMOGLOBIN 31 PG (26.0-33.0); MEAN CORPUSCULAR HGB CONC 33 g/dl (31.0-36.0); MEAN CORPUSCULAR VOLUME 93 fL (82-100); MONOCYTES # (AUTO) 1.2 /CMM (0.1-1.30); MONOCYTES % (AUTO) 7.4 % (2.0-12.0); NEUTROPHILS # (AUTO) 12.6 /CMM (1.8-8.9); NEUTROPHILS % (AUTO) 80.3 % (43.0-81.0); PLATELET COUNT (AUTO) 268 /CMM (150-450); RDW COEFFICIENT OF VARIATION 19.2 (11.5-15.0); RED BLOOD CELL COUNT(AUTO) 2.55 MIL/uL (4.0-5.2); WHITE BLOOD COUNT (AUTO) 15.7 K/uL (4.3-11.0)
[2017-12-21 08:00] VITALS: BP 159/114
[2017-12-21] MEDS: DOCUSATE SODIUM LIQ 100 MG/10 ML UDC GT SCH ×2 (08:59→21:39)
[2017-12-21] MEDS: LACTOBACILLUS RHAMNOSUS GG 1 EACH CAP.SPRINK GT SCH ×2 (08:59→17:47)
[2017-12-21] MEDS: risperiDONE LIQUID 1 MG/ML ML GT SCH ×2 (08:59→21:36)
[2017-12-21] MEDS: ZINC SULFATE 220 MG CAPSULE GT SCH (08:59)
[2017-12-21] MEDS: POLYETHYLENE GLYCOL 3350 17 GM POWD.PACK GT SCH (08:59)
[2017-12-21] MEDS: ASPIRIN 81 MG TAB.CHEW GT SCH (09:00)
[2017-12-21] MEDS: VIT B CMPLX 3/FA/VIT C/BIOTIN 1 TAB TABLET GT SCH (09:00)
[2017-12-21] MEDS: PROSOURCE / PROSTAT (PYXIS) 30 ML UDC GT SCH ×2 (09:00→17:47)
[2017-12-21] MEDS: PANTOPRAZOLE 40 MG/PACK PACK GT SCH (09:00)
[2017-12-21] MEDS: CADEXOMER IODINE 40 GM TUBE TP SCH (09:01)
[2017-12-21] MEDS: DAKINS QUARTER STRENGTH (0.125%) 480 ML BOTTLE TOP SCH (09:01)
[2017-12-21] MEDS: GENTAMICIN 0.1% OINT 15 GM TUBE TP SCH ×2 (09:02→17:47)
[2017-12-21] MEDS: Z GUARD REMEDY 2 OZ OINT TP SCH (09:12)
[2017-12-21 12:00] VITALS: BP 98/53
[2017-12-21 16:00] VITALS: BP 102/55
[2017-12-21] MEDS: GENTAMICIN 80 MG in IV D5W 50 ML IV PRN (19:33)
--- NOTE | 2017-12-21 19:46 | NUR ---
RN NOTE RECEIVED REPORT FROM MORNING NURSE, PATIENT RECEIVED HD THIS AM WITH 1L OUTPUT. PATIENT WAS SUPPOSED TO HAVE GENTAMICIN IV ATB GIVEN POST HD, REVIEWED PATIENT'S GENTAMICIN PEAK, 3.3 AND PER PHARMACY REPORT, OKAY TO SUPPLEMENT GENTAMICIN WITH 80mg. CN MADE AWARE. MEDICATION ADMINISTERED ORDERED.
[2017-12-21 20:00] VITALS: BP 130/72
[2017-12-21] MEDS: ATORVASTATIN 40 MG TABLET GT SCH (21:39)
[2017-12-22] VITALS (7 sets, daily range): BP systolic 109–130; BP diastolic 64–72
--- NOTE | 2017-12-22 00:04 | NUR ---
Received pt on vent support, pt is stable on current vent settings, no SOB or distress noted, alarms are on and audible,ventiletor is plugged into red outlet, ambu bag at bedside, will continue monitoring per MDS orders. Addendum: 12/22/17 at 0004 by CORRINA VASQUES RT Amended: Links added.
[2017-12-22] MEDS: ALBUTEROL FS 2.5 MG/0.5 ML VIAL.NEB NEB SCH ×4 (01:48→19:42)
[2017-12-22] MEDS: IPRATROPIUM NEB FS 0.5 MG/2.5 ML AMPUL.NEB NEB SCH ×4 (01:49→19:42)
[2017-12-22] MEDS: MIDODRINE HCL (5MG) 5 MG TABLET GT SCH ×3 (04:05→20:50)
--- NOTE | 2017-12-22 06:24 | NUR ---
RN CLOSING NOTES NO ACUTE CHANGE IN CONDITION OBSERVED OVERNIGHT. PATIENT REMAINS SR WITH HR OF 84 WITH OCCASIONAL PVCs, AND BBB. AIRWAY SUCTIONED AND KEPT CLEAR AND PATENT. GTF TOLERATED WELL, NO GASTRIC RESIDUAL. RAJAN MIDLINE INTACT. ALL DUE MEDS GIVEN ORDERED. WOUND CARE DONE. TRACH CARE DONE. TURNED AND REPOSITIONED. NEEDS ANTICIPATED AND MET. SAFETY AND COMFORT ENSURED. BED IN LOW AND LOCKED POSITION. CALL LIGHT IN REACH. WILL ENDORSE ACCORDINGLY FOR CONTINUITY OF CARE.
[2017-12-22 07:27] LABS: EOSINOPHILS # (AUTO) 0.8 /CMM (0.0-0.7); HEMATOCRIT 22 % (33-45); HEMOGLOBIN 7.4 g/dL (11.5-14.8); LYMPHOCYTES # (AUTO) 1.1 /CMM (0.8-4.8); LYMPHOCYTES % (AUTO) 6.9 % (20.0-44.0); MEAN CORPUSCULAR HEMOGLOBIN 31 PG (26.0-33.0); MEAN CORPUSCULAR HGB CONC 33 g/dl (31.0-36.0); MEAN CORPUSCULAR VOLUME 94 fL (82-100); MONOCYTES # (AUTO) 1.2 /CMM (0.1-1.30); NEUTROPHILS # (AUTO) 12.3 /CMM (1.8-8.9); NEUTROPHILS % (AUTO) 80.1 % (43.0-81.0); PLATELET COUNT (AUTO) 268 /CMM (150-450); RDW COEFFICIENT OF VARIATION 20.5 (11.5-15.0); RED BLOOD CELL COUNT(AUTO) 2.35 MIL/uL (4.0-5.2); WHITE BLOOD COUNT (AUTO) 15.4 K/uL (4.3-11.0)
--- NOTE | 2017-12-22 07:30 | NUR ---
RN OPENING NOTES RECEIVED PT. PT STABLE AND RESTING IN BED. NO S/S OF RESP DISTRESS, PT IS VENT DEPENDENT. GT IN PLACE AND PATENT WITH FEEDING OF NOVASOURCE AT 35 ML/HR. IV ACCESS LOCATED ON RIGHT UPPER ARM MIDLINE, RIGHT FA 20G PERIPHERAL IV. HD CATH NOTED ON LEFT SUBCLAVIAN. PER CONSULTANT TECHNOLOGY REPORT PT TO BE D/C PENDING CM PLACEMENT. SAFETY MEASURES IN PLACE, CALL LIGHT WITHIN REACH. WILL CONTINUE TO MONITOR.
[2017-12-22 08:00] LABS: CALCIUM, SERUM 8.7 mg/dL (8.5-10.1); CARBON DIOXIDE 32 mmol/L (21-32); CHLORIDE 103 mmol/L (98-107); GLUCOSE 121 mg/dL (74-106); MAGNESIUM 2.1 mg/dL (1.8-2.4); PHOSPHORUS 2.8 mg/dL (2.5-4.9); SODIUM SERUM 142 mmol/L (136-145); UREA NITROGEN, BLOOD 67 mg/dL (7-18)
[2017-12-22] MEDS: POLYETHYLENE GLYCOL 3350 17 GM POWD.PACK GT SCH (08:52)
[2017-12-22] MEDS: VIT B CMPLX 3/FA/VIT C/BIOTIN 1 TAB TABLET GT SCH (08:52)
[2017-12-22] MEDS: risperiDONE LIQUID 1 MG/ML ML GT SCH ×2 (08:52→20:49)
[2017-12-22] MEDS: LACTOBACILLUS RHAMNOSUS GG 1 EACH CAP.SPRINK GT SCH ×2 (08:52→17:18)
[2017-12-22] MEDS: ASPIRIN 81 MG TAB.CHEW GT SCH (08:52)
[2017-12-22] MEDS: PANTOPRAZOLE 40 MG/PACK PACK GT SCH (08:52)
[2017-12-22] MEDS: ZINC SULFATE 220 MG CAPSULE GT SCH (08:52)
[2017-12-22] MEDS: DOCUSATE SODIUM LIQ 100 MG/10 ML UDC GT SCH ×2 (08:53→20:49)
[2017-12-22] MEDS: PROSOURCE / PROSTAT (PYXIS) 30 ML UDC GT SCH ×2 (08:59→17:18)
[2017-12-22] MEDS: DAKINS QUARTER STRENGTH (0.125%) 480 ML BOTTLE TOP SCH (09:03)
[2017-12-22] MEDS: CADEXOMER IODINE 40 GM TUBE TP SCH (09:04)
[2017-12-22] MEDS: GENTAMICIN 0.1% OINT 15 GM TUBE TP SCH ×2 (09:04→17:18)
[2017-12-22] MEDS: Z GUARD REMEDY 2 OZ OINT TP SCH (09:04)
[2017-12-22] MEDS: EPOETIN ALFA (20,000 UNIT) 20,000 UNIT/ML VIAL SQ SCH (15:29)
--- NOTE | 2017-12-22 19:25 | NUR ---
RN CLOSING NOTES PT IN BED. NO S/S OF RESP DISTRESS OR SOB. NO C/O PAIN AT THIS TIME. REPORT GIVEN TO PHANI OF [facility] FOR TRANSFER . HERB JERONIMO WILL NOTIFY ROSETTE HERNDON . ALL PT NEEDS ANTICIPATED AND MET. SAFETY MEASURES IN PLACE, CALL LIGHT IN REACH. WILL ENDORSE TO [employer] CHECK[employer] FOR [facility].
--- NOTE | 2017-12-22 19:30 | NUR ---
telern received report, patient for discharge tonight to [facility] via [facility] and rt. charge nurse aware. per outgoing rn antoinette, he spoke to talon and gave report. patient awake, mouth words, no respiratory distress, vent dependent.
--- NOTE | 2017-12-22 21:00 | NUR ---
TELERN HS CARE DONE, HAD LARGE BM. PICTURES UPDATED FOR TODAY. DUE MEDS ADMINISTERED. AMBULANCE PENDING.
--- NOTE | 2017-12-22 22:15 | NUR ---
TELERN GT FEEDINGS HELD FOR NOW. HL RIGHT WRIST TAKEN OUT. WILL DC MIDLINE ONCE [facility] ARRIVES.
[2017-12-22] MEDS: ATORVASTATIN 40 MG TABLET GT SCH (22:21)
--- NOTE | 2017-12-22 22:38 | NUR ---
TELERN CALLED AMBULANCE, WAS TOLD [facility] ON THEIR WAY.
--- NOTE | 2017-12-22 23:15 | NUR ---
TELERN MARCIA ARRIVED, REPORT GIVEN TO RT. PATIENT REMAINS STABLE, V/S STABLE.
--- NOTE | 2017-12-22 23:35 | NUR ---
TELERN LEFT VIA AMBULANZ AND RT. NO BELONGINGS EXCEPT PATIENT WEARING BOTH EARRINGS. PATIENT IN SATISFACTORY CONDITION.
== END 2017-12-22 23:35 | DRG 981 ==
LOC: ER 19:09 → TELE-TD 22:46 → ICU 11-28 05:45 → TELE-TD 11-30 12:00 → TELE1 12-01 11:04
PROVIDERS: ADMIT Internal Medicine; ATTEND Internal Medicine
PROC: 5A1955Z Respiratory Ventilation, Greater than 96 Consecutive Hours (ICD-10-PCS; principal; 2017-11-27)
PROC: 30233N1 Transfusion of Nonautologous Red Blood Cells into Peripheral Vein, Percutaneous Approach (ICD-10-PCS; principal; 2017-11-27)
PROC: B546ZZA Ultrasonography of Right Subclavian Vein, Guidance (ICD-10-PCS; 2017-11-28)
PROC: 05H533Z Insertion of Infusion Device into Right Subclavian Vein, Percutaneous Approach (ICD-10-PCS; 2017-11-28)
PROC: 5A1D70Z Performance of Urinary Filtration, Intermittent, Less than 6 Hours Per Day (ICD-10-PCS; 2017-11-29)
PROC: 5A1D70Z Performance of Urinary Filtration, Intermittent, Less than 6 Hours Per Day (ICD-10-PCS; 2017-12-01)
PROC: 0KBT0ZZ Excision of Left Lower Leg Muscle, Open Approach (ICD-10-PCS; 2017-12-03)
PROC: 5A1D70Z Performance of Urinary Filtration, Intermittent, Less than 6 Hours Per Day (ICD-10-PCS; 2017-12-03)
PROC: 0KBS0ZZ Excision of Right Lower Leg Muscle, Open Approach (ICD-10-PCS; 2017-12-03)
PROC: 5A1D70Z Performance of Urinary Filtration, Intermittent, Less than 6 Hours Per Day (ICD-10-PCS; 2017-12-05)
PROC: 5A1D70Z Performance of Urinary Filtration, Intermittent, Less than 6 Hours Per Day (ICD-10-PCS; 2017-12-07)
PROC: 5A1D70Z Performance of Urinary Filtration, Intermittent, Less than 6 Hours Per Day (ICD-10-PCS; 2017-12-09)
PROC: 5A1D70Z Performance of Urinary Filtration, Intermittent, Less than 6 Hours Per Day (ICD-10-PCS; 2017-12-11)
PROC: 5A1D70Z Performance of Urinary Filtration, Intermittent, Less than 6 Hours Per Day (ICD-10-PCS; 2017-12-13)
PROC: 5A1D70Z Performance of Urinary Filtration, Intermittent, Less than 6 Hours Per Day (ICD-10-PCS; 2017-12-15)
PROC: 5A1D70Z Performance of Urinary Filtration, Intermittent, Less than 6 Hours Per Day (ICD-10-PCS; 2017-12-17)
PROC: 5A1D70Z Performance of Urinary Filtration, Intermittent, Less than 6 Hours Per Day (ICD-10-PCS; 2017-12-19)
PROC: 5A1D70Z Performance of Urinary Filtration, Intermittent, Less than 6 Hours Per Day (ICD-10-PCS; 2017-12-21)
DX: J95.851 Ventilator associated pneumonia (principal); I21.A1 Myocardial infarction type 2; R65.21 Severe sepsis with septic shock; J96.20 Acute and chronic respiratory failure, unspecified whether with hypoxia or hypercapnia; E43 Unspecified severe protein-calorie malnutrition; J15.6 Pneumonia due to other Gram-negative bacteria; A41.9 Sepsis, unspecified organism; G92 Toxic encephalopathy; R53.2 Functional quadriplegia; N18.6 End stage renal disease; Z99.11 Dependence on respirator [ventilator] status; D68.59 Other primary thrombophilia; E11.52 Type 2 diabetes mellitus with diabetic peripheral angiopathy with gangrene; I13.11 Hypertensive heart and chronic kidney disease without heart failure, with stage 5 chronic kidney disease, or end stage renal disease; R18.8 Other ascites; N39.0 Urinary tract infection, site not specified; M86.9 Osteomyelitis, unspecified; K80.21 Calculus of gallbladder without cholecystitis with obstruction; E87.1 Hypo-osmolality and hyponatremia; L03.116 Cellulitis of left lower limb; M87.9 Osteonecrosis, unspecified; L03.115 Cellulitis of right lower limb; J90 Pleural effusion, not elsewhere classified; L89.610 Pressure ulcer of right heel, unstageable; L89.620 Pressure ulcer of left heel, unstageable; L89.159 Pressure ulcer of sacral region, unspecified stage; E11.22 Type 2 diabetes mellitus with diabetic chronic kidney disease; Z93.0 Tracheostomy status; I25.10 Atherosclerotic heart disease of native coronary artery without angina pectoris; Z99.2 Dependence on renal dialysis; Z95.1 Presence of aortocoronary bypass graft; Z93.1 Gastrostomy status; Z87.891 Personal history of nicotine dependence; Z79.899 Other long term (current) drug therapy; Z79.82 Long term (current) use of aspirin; Z79.4 Long term (current) use of insulin; Z79.2 Long term (current) use of antibiotics; Z78.9 Other specified health status; Z88.1 Allergy status to other antibiotic agents; Z88.0 Allergy status to penicillin; F09 Unspecified mental disorder due to known physiological condition; M85.9 Disorder of bone density and structure, unspecified; Z86.14 Personal history of Methicillin resistant Staphylococcus aureus infection; Z74.01 Bed confinement status; Z68.28 Body mass index [BMI] 28.0-28.9, adult; Z22.322 Carrier or suspected carrier of Methicillin resistant Staphylococcus aureus; R13.10 Dysphagia, unspecified; L97.509 Non-pressure chronic ulcer of other part of unspecified foot with unspecified severity; K76.0 Fatty (change of) liver, not elsewhere classified; K74.60 Unspecified cirrhosis of liver; L90.9 Atrophic disorder of skin, unspecified; G90.8 Other disorders of autonomic nervous system; E78.5 Hyperlipidemia, unspecified; E11.621 Type 2 diabetes mellitus with foot ulcer; E11.69 Type 2 diabetes mellitus with other specified complication; B96.5 Pseudomonas (aeruginosa) (mallei) (pseudomallei) as the cause of diseases classified elsewhere; Y84.9 Medical procedure, unspecified as the cause of abnormal reaction of the patient, or of later complication, without mention of misadventure at the time of the procedure; Y82.9 Unspecified medical devices associated with adverse incidents; Y92.129 Unspecified place in nursing home as the place of occurrence of the external cause; M15.4 Erosive (osteo)arthritis; M15.9 Polyosteoarthritis, unspecified; K59.00 Constipation, unspecified; D63.1 Anemia in chronic kidney disease; H66.93 Otitis media, unspecified, bilateral; Z16.19 Resistance to other specified beta lactam antibiotics; E66.9 Obesity, unspecified; J44.9 Chronic obstructive pulmonary disease, unspecified
CPT/HCPCS: 31720; 36415; 36569; 36600; 71045-TC; 80048-TC; 80053-TC; 80074; 80076-TC; 80170-TC; 80202-TC; 81000-TC; 82533; 82553-TC; 82803-TC; 82962-TC; 83605-TC; 83735-TC; 84100-TC; 84484-TC; 85025-TC; 85027-TC; 85610-TC; 85730-TC; 86704; 86708; 86709; 86850-TC; 86921-TC; 87040-TC; 87070-TC; 87075-TC; 87081-TC; 87086-TC; 87186-TC; 90935-TC; 93970-TC; 94003-TC; 94640-TC; 94760-TC; 94762-TC; A4216; A4217; A4606; A6253; A6402; A6403; A6407; C1751; J0461; J0713; J0885; J1580; J1815; J2020; J2185; J2270; J3370; J3490; J7030; J7040; J7050; J7060; J8597; P9016-BL; P9047; Z7610

== ENCOUNTER 2018-01-15 16:16 | Inpatient (IN) | payer OTHER ==
[~2018-01-15] VITALS: Ht 172.7 cm; Wt 87.5 kg
[~2018-01-15 16:16] MED LIST changes: -CEFA1FRO IV; -Renal Novasource GT
[2018-01-15 16:44] LABS: BASOPHILS % (AUTO) 0.1 % (0.0-2.0); EOSINOPHILS # (AUTO) 0.8 /CMM (0.0-0.7); EOSINOPHILS % (AUTO) 5.8 % (0.0-6.0); HEMATOCRIT 22 % (33-45); HEMOGLOBIN 7.4 g/dL (11.5-14.8); LYMPHOCYTES # (AUTO) 1.1 /CMM (0.8-4.8); MEAN CORPUSCULAR HEMOGLOBIN 31 PG (26.0-33.0); MEAN CORPUSCULAR HGB CONC 33 g/dl (31.0-36.0); MEAN CORPUSCULAR VOLUME 95 fL (82-100); MONOCYTES # (AUTO) 0.8 /CMM (0.1-1.30); MONOCYTES % (AUTO) 5.7 % (2.0-12.0); NEUTROPHILS # (AUTO) 11.5 /CMM (1.8-8.9); NEUTROPHILS % (AUTO) 80.4 % (43.0-81.0); PLATELET COUNT (AUTO) 372 /CMM (150-450); RDW COEFFICIENT OF VARIATION 20.7 (11.5-15.0); RED BLOOD CELL COUNT(AUTO) 2.37 MIL/uL (4.0-5.2); WHITE BLOOD COUNT (AUTO) 14.3 K/uL (4.3-11.0)
[2018-01-15 16:59] LABS: INR 1.06 (0.87-1.13)
[2018-01-15 17:01] LABS: ALANINE AMINOTRANSFERASE 80 U/L (12-78); ALKALINE PHOSPHATASE 427 U/L (46-116); ASPARTATE AMINOTRANSFERASE 47 U/L (15-37); BILIRUBIN,DIRECT 0.2 mg/dL (0.0-0.2); BILIRUBIN,TOTAL 0.4 mg/dL (0.2-1.0); CALCIUM, SERUM 6.8 mg/dL (8.5-10.1); CARBON DIOXIDE 24 mmol/L (21-32); CHLORIDE 104 mmol/L (98-107); CREATININE 2.7 mg/dL (0.6-1.3); GLUCOSE 126 mg/dL (74-106); POTASSIUM 3.7 mmol/L (3.5-5.1); SODIUM SERUM 138 mmol/L (136-145); TOTAL PROTEIN, SERUM 6.4 g/dL (6.4-8.2)
[2018-01-15 17:03] LABS: ALBUMIN 1.4 g/dL (3.4-5.0); UREA NITROGEN, BLOOD 86 mg/dL (7-18)
[2018-01-15 17:13] LABS: APPEARANCE,URINE TURBID (CLEAR); BILIRUBIN,URINE NEGATIVE (NEGATIVE); BLOOD, URINE 2+ Ery/uL (NEGATIVE); COLOR,URINE DARK YELLO (YELLOW); KETONES,URINE NEGATIVE (NEGATIVE); LEUKOCYTE ESTERASE ,URINE 3+ (NEGATIVE); NITRITE, URINE POSITIVE (NEGATIVE); PH,URINE 7.5 (5.0-8.0); PROTEIN,URINE 3+ mg/dl (NEGATIVE); UGLUCOSE TRACE mg/dL (NEGATIVE); UROBILINOGEN,URINE 0.2 EU/dL (0.2)
[2018-01-15 17:15] LABS: TROPONIN I 0.058 ng/mL (0.00-0.056)
[2018-01-15 17:21] LABS: BACTERIA,URINE Moderate /HPF (None Seen); RBC,URINE 21-50 /HPF (0-2); SQUAMOUS EPITHELIAL CELL,UR Moderate /HPF (None Seen); WBC,URINE TOO NUMEROUS TO COUN /HPF (0-3)
[2018-01-15 19:17] VITALS: BP 139/73
[2018-01-15] MEDS ORDERED: LEVOFLOXACIN 750 MG /D5W 150ML 150 ML IV ONE (19:29)
[2018-01-15] MEDS ORDERED: IV NS 0.9% 1,000 ML IV ONE (19:30)
[2018-01-15] MEDS ORDERED: LEVOFLOXACIN 750 MG /D5W 150ML 750 MG in PREMIX 1 EA IV SCH (19:30)
[2018-01-15] MEDS ORDERED: LACT1CAP61 GT (19:59)
[2018-01-15] MEDS ORDERED: HYDR-552 PO (19:59)
[2018-01-15] MEDS ORDERED: FOLI0.8T2 PO (19:59)
[2018-01-15] MEDS ORDERED: AMIN30LI2 GT (19:59)
[2018-01-15] MEDS ORDERED: FERR325T23 GT (19:59)
[2018-01-15 21:00] VITALS: BP 137/73
[2018-01-15] MEDS ORDERED: MAG HYDROX/AL HYDROX/SIMETH 30 ML UDC PO PRN (21:30)
[2018-01-15] MEDS ORDERED: DEXTROSE 50%-WATER 50 ML DISP.SYRIN IV PRN (21:30)
[2018-01-15] MEDS ORDERED: ZOLPIDEM TARTRATE 5 MG TABLET PO PRN (21:30)
[2018-01-15] MEDS ORDERED: ONDANSETRON HCL/PF 4 MG/2 ML VIAL IVP PRN (21:30)
[2018-01-15] MEDS ORDERED: MAGNESIUM HYDROXIDE 30 ML UDC PO PRN (21:30)
[2018-01-15] MEDS: BLOOD SUGAR DIAGNOSTIC 1 EACH STRIP IN SCH (23:20)
[2018-01-16] VITALS (8 sets, daily range): BP systolic 90–118; BP diastolic 37–64
[2018-01-16] MEDS ORDERED: NEPRO VAN 237 ML CAN GT SCH
[2018-01-16] MEDS ORDERED: RENAL NOVASOURCE 1,000 ML BOTTLE GT PRN (02:00)
[2018-01-16] MEDS: MIDODRINE HCL (5MG) 5 MG TABLET GT SCH ×3 (04:06→21:21)
[2018-01-16 04:19] LABS: BASOPHILS % (AUTO) 0.1 % (0.0-2.0); EOSINOPHILS # (AUTO) 0.5 /CMM (0.0-0.7); LYMPHOCYTES # (AUTO) 0.7 /CMM (0.8-4.8); LYMPHOCYTES % (AUTO) 4.7 % (20.0-44.0); MEAN CORPUSCULAR HEMOGLOBIN 32 PG (26.0-33.0); MEAN CORPUSCULAR HGB CONC 33 g/dl (31.0-36.0); MEAN CORPUSCULAR VOLUME 95 fL (82-100); MONOCYTES # (AUTO) 0.7 /CMM (0.1-1.30); MONOCYTES % (AUTO) 4.4 % (2.0-12.0); NEUTROPHILS # (AUTO) 13.6 /CMM (1.8-8.9); NEUTROPHILS % (AUTO) 87.8 % (43.0-81.0); PLATELET COUNT (AUTO) 362 /CMM (150-450); RDW COEFFICIENT OF VARIATION 20.4 (11.5-15.0); RED BLOOD CELL COUNT(AUTO) 2.08 MIL/uL (4.0-5.2); WHITE BLOOD COUNT (AUTO) 15.5 K/uL (4.3-11.0)
[2018-01-16 04:34] LABS: CALCIUM, SERUM 8.3 mg/dL (8.5-10.1); CARBON DIOXIDE 27 mmol/L (21-32); CHLORIDE 97 mmol/L (98-107); CREATININE 3.6 mg/dL (0.6-1.3); GLUCOSE 119 mg/dL (74-106); MAGNESIUM 2.3 mg/dL (1.8-2.4); POTASSIUM 4.5 mmol/L (3.5-5.1); SODIUM SERUM 134 mmol/L (136-145)
[2018-01-16 04:35] LABS: HEMATOCRIT 20 % (33-45); HEMOGLOBIN 6.6 g/dL (11.5-14.8)
[2018-01-16 04:36] LABS: UREA NITROGEN, BLOOD 109 mg/dL (7-18)
[2018-01-16 05:08] LABS: LYMPHOCYTES % (MANUAL) 6 % (16-48); MONOCYTES % (MANUAL) 5 % (0-11.0); NEUTROPHILS % (MANUAL) 89 (42-76)
[2018-01-16] MEDS: BLOOD SUGAR DIAGNOSTIC 1 EACH STRIP IN SCH ×4 (05:59→23:54)
[2018-01-16 08:08] LABS: ABG BASE EXCESS 5.7 mmol/L; ABG PCO2 41.7 mmHg (35.0-45.0); ABG PH 7.472 (7.350-7.450); ABG PO2 61.2 mmHg (75.0-100.0); COHb 0.3 % (0.5-1.5); MetHb 0.7 % (0.0-1.5); O2Hb 90.1 % (94.0-97.0); PEEP,BG 5 cm H2O; SITE, ABG Right Radial; VT, ABG 500 mL
[2018-01-16] MEDS: risperiDONE 1 MG TABLET PO SCH ×2 (08:38→21:19)
[2018-01-16] MEDS: METOCLOPRAMIDE HCL 10 MG TABLET GT SCH ×2 (08:38→21:18)
[2018-01-16] MEDS: DOCUSATE SODIUM LIQ 100 MG/10 ML UDC GT SCH (08:38)
[2018-01-16] MEDS: VIT B CMPLX 3/FA/VIT C/BIOTIN 1 TAB TABLET PO SCH (08:38)
[2018-01-16] MEDS: Z GUARD REMEDY 2 OZ OINT TP PRN (08:39)
[2018-01-16] MEDS: VITAMIN B COMP W-C 1 TAB TABLET GT SCH (08:39)
[2018-01-16] MEDS: LACTOBACILLUS RHAMNOSUS GG 1 EACH CAP.SPRINK GT SCH ×2 (08:39→16:25)
[2018-01-16] MEDS: PROSOURCE / PROSTAT (PYXIS) 30 ML UDC GT SCH ×3 (08:39→16:25)
[2018-01-16] MEDS: FERROUS SULFATE (325 MG) 325 MG/TAB TABLET GT SCH (08:39)
[2018-01-16] MEDS: HEPARIN SODIUM, PORCINE 5000 UNITS/1 ML VIAL SQ SCH ×3 (08:40→21:20)
[2018-01-16] MEDS ORDERED: ASPIRIN 81 MG TAB.CHEW GT SCH (09:00)
[2018-01-16] MEDS ORDERED: HYDROGEL DRESSING 90 GM TUBE TP PRN (10:00)
[2018-01-16] MEDS ORDERED: HYDROGEL DRESSING 90 GM TUBE TP SCH (10:00)
[2018-01-16] MEDS: DAKINS QUARTER STRENGTH (0.125%) 480 ML BOTTLE TOP SCH (10:48)
[2018-01-16] MEDS: INSULIN REGULAR, HUMAN 100 UNIT/ML 3 ML VIAL SQ PRN ×3 (12:20→23:56)
[2018-01-16] MEDS ORDERED: LEVOFLOXACIN 750 MG /D5W 150ML 750 MG in PREMIX 1 EA IV SCH (12:30)
[2018-01-16] MEDS ORDERED: SILVER NITRATE APPLICATOR 1 EA BOX TP ONE (15:00)
[2018-01-16] MEDS ORDERED: LIDOCAINE 1%-EPI 1:100,000 20 ML VIAL TP ONE (15:00)
[2018-01-16] MEDS ORDERED: FEE PK DOSING 1 MIN EA MC ONE (16:06)
[2018-01-16] MEDS: NYSTATIN TOP POWDER 15 GM BOTTLE TP SCH (16:25)
[2018-01-16] MEDS ORDERED: GENTAMICIN 80 MG in IV D5W 50 ML IV PRN (16:30)
[2018-01-16] MEDS: LINEZOLID RTU BAG 600 MG in PREMIX 1 EA IV SCH (17:43)
[2018-01-16] MEDS: MEROPENEM 500 MG in IV NS 0.9% 50 ML IV SCH (17:55)
[2018-01-16] MEDS ORDERED: GENTAMICIN 100 MG in IV D5W 50 ML IV ONE (18:00)
[2018-01-16] MEDS: ATORVASTATIN 40 MG TABLET GT SCH (21:20)
[2018-01-17] VITALS: BP 122/71
[2018-01-17] MEDS: NYSTATIN TOP POWDER 15 GM BOTTLE TP SCH ×2 (02:54→15:08)
[2018-01-17] MEDS: LINEZOLID RTU BAG 600 MG in PREMIX 1 EA IV SCH ×2 (03:10→15:08)
[2018-01-17 04:00] VITALS: BP 125/70
[2018-01-17] MEDS: MEROPENEM 500 MG in IV NS 0.9% 50 ML IV SCH ×2 (04:56→16:28)
[2018-01-17] MEDS: MIDODRINE HCL (5MG) 5 MG TABLET GT SCH ×3 (04:58→20:41)
[2018-01-17] MEDS: RENAL NOVASOURCE 1,000 ML BOTTLE GT PRN (05:15)
[2018-01-17] MEDS: BLOOD SUGAR DIAGNOSTIC 1 EACH STRIP IN SCH ×4 (06:12→23:11)
[2018-01-17] MEDS: INSULIN REGULAR, HUMAN 100 UNIT/ML 3 ML VIAL SQ PRN ×2 (06:13→17:08)
[2018-01-17 06:21] LABS: BASOPHILS % (AUTO) 0.1 % (0.0-2.0); EOSINOPHILS # (AUTO) 0.4 /CMM (0.0-0.7); EOSINOPHILS % (AUTO) 2.8 % (0.0-6.0); HEMATOCRIT 22 % (33-45); HEMOGLOBIN 7.6 g/dL (11.5-14.8); LYMPHOCYTES % (AUTO) 6.1 % (20.0-44.0); MEAN CORPUSCULAR HEMOGLOBIN 32 PG (26.0-33.0); MEAN CORPUSCULAR HGB CONC 34 g/dl (31.0-36.0); MEAN CORPUSCULAR VOLUME 94 fL (82-100); MONOCYTES # (AUTO) 0.8 /CMM (0.1-1.30); MONOCYTES % (AUTO) 5.3 % (2.0-12.0); NEUTROPHILS # (AUTO) 13.5 /CMM (1.8-8.9); NEUTROPHILS % (AUTO) 85.7 % (43.0-81.0); PLATELET COUNT (AUTO) 352 /CMM (150-450); RDW COEFFICIENT OF VARIATION 21.2 (11.5-15.0); RED BLOOD CELL COUNT(AUTO) 2.38 MIL/uL (4.0-5.2); WHITE BLOOD COUNT (AUTO) 15.8 K/uL (4.3-11.0)
[2018-01-17 06:51] LABS: CALCIUM, SERUM 8.2 mg/dL (8.5-10.1); CARBON DIOXIDE 27 mmol/L (21-32); CHLORIDE 98 mmol/L (98-107); CREATININE 3.2 mg/dL (0.6-1.3); GLUCOSE 134 mg/dL (74-106); POTASSIUM 4.3 mmol/L (3.5-5.1); SODIUM SERUM 135 mmol/L (136-145)
[2018-01-17 06:53] LABS: UREA NITROGEN, BLOOD 94 mg/dL (7-18)
[2018-01-17 08:00] VITALS: BP 132/68
[2018-01-17] MEDS: DOCUSATE SODIUM LIQ 100 MG/10 ML UDC GT SCH (08:05)
[2018-01-17] MEDS: LACTOBACILLUS RHAMNOSUS GG 1 EACH CAP.SPRINK GT SCH ×2 (08:06→16:28)
[2018-01-17] MEDS: METOCLOPRAMIDE HCL 10 MG TABLET GT SCH ×2 (08:06→20:41)
[2018-01-17] MEDS: VITAMIN B COMP W-C 1 TAB TABLET GT SCH (08:06)
[2018-01-17] MEDS: risperiDONE 1 MG TABLET PO SCH ×2 (08:06→20:41)
[2018-01-17] MEDS: FERROUS SULFATE (325 MG) 325 MG/TAB TABLET GT SCH (08:07)
[2018-01-17] MEDS: VIT B CMPLX 3/FA/VIT C/BIOTIN 1 TAB TABLET PO SCH (08:15)
[2018-01-17] MEDS: PROSOURCE / PROSTAT (PYXIS) 30 ML UDC GT SCH ×3 (08:15→16:27)
[2018-01-17] MEDS: DAKINS QUARTER STRENGTH (0.125%) 480 ML BOTTLE TOP SCH (08:16)
[2018-01-17] MEDS: HEPARIN SODIUM, PORCINE 5000 UNITS/1 ML VIAL SQ SCH ×2 (09:00→20:46)
[2018-01-17] MEDS: HYDROCODONE/APAP 5/325MG 1 EACH TABLET PO PRN ×2 (10:07→16:32)
[2018-01-17 12:00] VITALS: BP 101/45
[2018-01-17] MEDS ORDERED: MORPHINE SULFATE INJ 2 MG/ML DISP.SYRIN IM PRN (12:30)
[2018-01-17 16:00] VITALS: BP 121/60
[2018-01-17 20:00] VITALS: BP 113/54
[2018-01-17] MEDS: ATORVASTATIN 40 MG TABLET GT SCH (22:36)
[2018-01-17] MEDS ORDERED: GENTAMICIN 80 MG/2 ML VIAL ONE (22:40)
[2018-01-18] VITALS (7 sets, daily range): BP systolic 106–125; BP diastolic 43–61
[2018-01-18] MEDS: NYSTATIN TOP POWDER 15 GM BOTTLE TP SCH ×2 (03:42→16:51)
[2018-01-18] MEDS: MEROPENEM 500 MG in IV NS 0.9% 50 ML IV SCH ×2 (05:17→16:50)
[2018-01-18] MEDS: MIDODRINE HCL (5MG) 5 MG TABLET GT SCH ×3 (05:17→20:42)
[2018-01-18] MEDS: BLOOD SUGAR DIAGNOSTIC 1 EACH STRIP IN SCH ×3 (05:18→18:18)
[2018-01-18 06:42] LABS: BASOPHILS % (AUTO) 0.1 % (0.0-2.0); EOSINOPHILS # (AUTO) 0.9 /CMM (0.0-0.7); EOSINOPHILS % (AUTO) 5.7 % (0.0-6.0); HEMATOCRIT 22 % (33-45); HEMOGLOBIN 7.5 g/dL (11.5-14.8); LYMPHOCYTES # (AUTO) 0.8 /CMM (0.8-4.8); MEAN CORPUSCULAR HEMOGLOBIN 32 PG (26.0-33.0); MEAN CORPUSCULAR HGB CONC 34 g/dl (31.0-36.0); MEAN CORPUSCULAR VOLUME 93 fL (82-100); MONOCYTES # (AUTO) 0.8 /CMM (0.1-1.30); MONOCYTES % (AUTO) 5.2 % (2.0-12.0); PLATELET COUNT (AUTO) 386 /CMM (150-450); RDW COEFFICIENT OF VARIATION 20.6 (11.5-15.0); RED BLOOD CELL COUNT(AUTO) 2.37 MIL/uL (4.0-5.2); WHITE BLOOD COUNT (AUTO) 15.5 K/uL (4.3-11.0)
[2018-01-18 07:08] LABS: CALCIUM, SERUM 8.1 mg/dL (8.5-10.1); CARBON DIOXIDE 32 mmol/L (21-32); CHLORIDE 97 mmol/L (98-107); CREATININE 2.8 mg/dL (0.6-1.3); GLUCOSE 116 mg/dL (74-106); POTASSIUM 3.8 mmol/L (3.5-5.1); SODIUM SERUM 135 mmol/L (136-145)
[2018-01-18 07:17] LABS: UREA NITROGEN, BLOOD 80 mg/dL (7-18)
[2018-01-18] MEDS: risperiDONE 1 MG TABLET PO SCH ×2 (08:49→20:45)
[2018-01-18] MEDS: VIT B CMPLX 3/FA/VIT C/BIOTIN 1 TAB TABLET PO SCH (08:49)
[2018-01-18] MEDS: PROSOURCE / PROSTAT (PYXIS) 30 ML UDC GT SCH ×3 (08:49→16:50)
[2018-01-18] MEDS: DOCUSATE SODIUM LIQ 100 MG/10 ML UDC GT SCH (08:50)
[2018-01-18] MEDS: LACTOBACILLUS RHAMNOSUS GG 1 EACH CAP.SPRINK GT SCH ×2 (08:50→16:50)
[2018-01-18] MEDS: METOCLOPRAMIDE HCL 10 MG TABLET GT SCH ×2 (08:50→20:42)
[2018-01-18] MEDS: FERROUS SULFATE (325 MG) 325 MG/TAB TABLET GT SCH (08:50)
[2018-01-18] MEDS: VITAMIN B COMP W-C 1 TAB TABLET GT SCH (08:50)
[2018-01-18] MEDS: HEPARIN SODIUM, PORCINE 5000 UNITS/1 ML VIAL SQ SCH ×2 (08:52→20:49)
[2018-01-18] MEDS: DAKINS QUARTER STRENGTH (0.125%) 480 ML BOTTLE TOP SCH (09:15)
[2018-01-18] MEDS: IPRATROPIUM NEB FS 0.5 MG/2.5 ML AMPUL.NEB NEB SCH ×2 (16:30→20:27)
[2018-01-18] MEDS: ALBUTEROL HALF STRENGTH 1.25 MG/3 ML VIAL.NEB NEB SCH ×2 (16:30→20:27)
[2018-01-18] MEDS ORDERED: COLISTIMETHATE SODIUM 100 MG in IV NS 0.9% 50 ML IV SCH (18:00)
[2018-01-18 19:55] LABS: OCCULT BLOOD STOOL NEGATIVE (NEGATIVE)
[2018-01-18] MEDS: COLISTIMETHATE SODIUM 100 MG in IV NS 0.9% 50 ML IV SCH (20:34)
[2018-01-18] MEDS: ATORVASTATIN 40 MG TABLET GT SCH (21:02)
[2018-01-18] MEDS: RENAL NOVASOURCE 1,000 ML BOTTLE GT PRN (21:09)
[2018-01-19] VITALS: BP 126/59
[2018-01-19] MEDS: INSULIN REGULAR, HUMAN 100 UNIT/ML 3 ML VIAL SQ PRN ×2 (00:15→05:27)
[2018-01-19] MEDS: BLOOD SUGAR DIAGNOSTIC 1 EACH STRIP IN SCH ×5 (00:15→23:29)
[2018-01-19] MEDS: ALBUTEROL HALF STRENGTH 1.25 MG/3 ML VIAL.NEB NEB SCH ×4 (01:27→19:23)
[2018-01-19] MEDS: IPRATROPIUM NEB FS 0.5 MG/2.5 ML AMPUL.NEB NEB SCH ×4 (01:27→19:23)
[2018-01-19 04:00] VITALS: BP_SYST 123; BP_SYST 99; BP_DIAS 50; BP_DIAS 64
[2018-01-19] MEDS: MEROPENEM 500 MG in IV NS 0.9% 50 ML IV SCH ×2 (04:27→16:07)
[2018-01-19] MEDS: MIDODRINE HCL (5MG) 5 MG TABLET GT SCH ×3 (04:28→21:01)
[2018-01-19] MEDS: NYSTATIN TOP POWDER 15 GM BOTTLE TP SCH ×2 (04:29→15:35)
[2018-01-19] MEDS: Z GUARD REMEDY 2 OZ OINT TP PRN (04:33)
[2018-01-19] MEDS: HYDROCODONE/APAP 5/325MG 1 EACH TABLET PO PRN (05:27)
[2018-01-19 06:39] LABS: BASOPHILS % (AUTO) 0.2 % (0.0-2.0); EOSINOPHILS % (AUTO) 6.5 % (0.0-6.0); HEMATOCRIT 23 % (33-45); HEMOGLOBIN 7.4 g/dL (11.5-14.8); LYMPHOCYTES # (AUTO) 0.9 /CMM (0.8-4.8); LYMPHOCYTES % (AUTO) 6.3 % (20.0-44.0); MEAN CORPUSCULAR HEMOGLOBIN 31 PG (26.0-33.0); MEAN CORPUSCULAR HGB CONC 33 g/dl (31.0-36.0); MEAN CORPUSCULAR VOLUME 94 fL (82-100); MONOCYTES # (AUTO) 0.8 /CMM (0.1-1.30); MONOCYTES % (AUTO) 5.7 % (2.0-12.0); NEUTROPHILS % (AUTO) 81.3 % (43.0-81.0); PLATELET COUNT (AUTO) 382 /CMM (150-450); RDW COEFFICIENT OF VARIATION 19.5 (11.5-15.0); WHITE BLOOD COUNT (AUTO) 14.7 K/uL (4.3-11.0)
[2018-01-19 06:57] LABS: CALCIUM, SERUM 8.6 mg/dL (8.5-10.1); CARBON DIOXIDE 32 mmol/L (21-32); CHLORIDE 95 mmol/L (98-107); CREATININE 3.3 mg/dL (0.6-1.3); GLUCOSE 94 mg/dL (74-106); SODIUM SERUM 134 mmol/L (136-145)
[2018-01-19 06:58] LABS: UREA NITROGEN, BLOOD 105 mg/dL (7-18)
[2018-01-19 08:00] VITALS: BP 115/57
[2018-01-19] MEDS: LACTOBACILLUS RHAMNOSUS GG 1 EACH CAP.SPRINK GT SCH ×2 (08:17→16:06)
[2018-01-19] MEDS: FERROUS SULFATE (325 MG) 325 MG/TAB TABLET GT SCH (08:17)
[2018-01-19] MEDS: VIT B CMPLX 3/FA/VIT C/BIOTIN 1 TAB TABLET PO SCH (08:17)
[2018-01-19] MEDS: VITAMIN B COMP W-C 1 TAB TABLET GT SCH (08:17)
[2018-01-19] MEDS: DOCUSATE SODIUM LIQ 100 MG/10 ML UDC GT SCH (08:17)
[2018-01-19] MEDS: PROSOURCE / PROSTAT (PYXIS) 30 ML UDC GT SCH ×3 (08:17→16:07)
[2018-01-19] MEDS: risperiDONE 1 MG TABLET PO SCH ×2 (08:17→21:01)
[2018-01-19] MEDS: METOCLOPRAMIDE HCL 10 MG TABLET GT SCH ×2 (08:17→21:01)
[2018-01-19] MEDS: HEPARIN SODIUM, PORCINE 5000 UNITS/1 ML VIAL SQ SCH ×2 (08:18→21:19)
[2018-01-19] MEDS: DAKINS QUARTER STRENGTH (0.125%) 480 ML BOTTLE TOP SCH (08:18)
[2018-01-19] MEDS: ACETAMINOPHEN 325 MG TABLET PO PRN (11:50)
[2018-01-19 12:00] VITALS: BP 110/57
[2018-01-19] MEDS: ALBUMIN 25% 25 GM in PREMIX 1 EA IV PRN (13:23)
[2018-01-19 16:00] VITALS: BP 99/50
[2018-01-19 20:00] VITALS: BP 114/68
[2018-01-19] MEDS: COLISTIMETHATE SODIUM 100 MG in IV NS 0.9% 50 ML IV SCH (21:00)
[2018-01-19] MEDS: ATORVASTATIN 40 MG TABLET GT SCH (21:01)
[2018-01-20] VITALS (8 sets, daily range): BP systolic 95–112; BP diastolic 41–62
[2018-01-20] MEDS: IPRATROPIUM NEB FS 0.5 MG/2.5 ML AMPUL.NEB NEB SCH ×4 (01:16→19:44)
[2018-01-20] MEDS: ALBUTEROL HALF STRENGTH 1.25 MG/3 ML VIAL.NEB NEB SCH ×4 (01:16→19:44)
[2018-01-20] MEDS: NYSTATIN TOP POWDER 15 GM BOTTLE TP SCH ×2 (03:47→16:10)
[2018-01-20] MEDS: RENAL NOVASOURCE 1,000 ML BOTTLE GT PRN (03:54)
[2018-01-20] MEDS: MIDODRINE HCL (5MG) 5 MG TABLET GT SCH ×3 (04:00→20:45)
[2018-01-20] MEDS: MEROPENEM 500 MG in IV NS 0.9% 50 ML IV SCH (04:00)
[2018-01-20] MEDS: BLOOD SUGAR DIAGNOSTIC 1 EACH STRIP IN SCH ×3 (05:03→18:31)
[2018-01-20] MEDS: VIT B CMPLX 3/FA/VIT C/BIOTIN 1 TAB TABLET PO SCH (10:13)
[2018-01-20] MEDS: VITAMIN B COMP W-C 1 TAB TABLET GT SCH (10:13)
[2018-01-20] MEDS: DOCUSATE SODIUM LIQ 100 MG/10 ML UDC GT SCH (10:13)
[2018-01-20] MEDS: risperiDONE 1 MG TABLET PO SCH ×2 (10:13→20:45)
[2018-01-20] MEDS: METOCLOPRAMIDE HCL 10 MG TABLET GT SCH ×2 (10:13→20:45)
[2018-01-20] MEDS: FERROUS SULFATE (325 MG) 325 MG/TAB TABLET GT SCH (10:13)
[2018-01-20] MEDS: LACTOBACILLUS RHAMNOSUS GG 1 EACH CAP.SPRINK GT SCH ×2 (10:13→16:10)
[2018-01-20] MEDS: HEPARIN SODIUM, PORCINE 5000 UNITS/1 ML VIAL SQ SCH ×2 (10:14→21:08)
[2018-01-20] MEDS: DAKINS QUARTER STRENGTH (0.125%) 480 ML BOTTLE TOP SCH (10:15)
[2018-01-20] MEDS: PROSOURCE / PROSTAT (PYXIS) 30 ML UDC GT SCH ×3 (10:16→16:10)
[2018-01-20] MEDS: DOXYCYCLINE HYCLATE (100 MG) 100 MG TABLET GT SCH (20:44)
[2018-01-20] MEDS: COLISTIMETHATE SODIUM 100 MG in IV NS 0.9% 50 ML IV SCH (20:44)
[2018-01-20] MEDS: ATORVASTATIN 40 MG TABLET GT SCH (21:07)
[2018-01-21] VITALS: BP 115/62
[2018-01-21] MEDS: ALBUTEROL HALF STRENGTH 1.25 MG/3 ML VIAL.NEB NEB SCH ×4 (01:17→20:02)
[2018-01-21] MEDS: IPRATROPIUM NEB FS 0.5 MG/2.5 ML AMPUL.NEB NEB SCH ×4 (01:17→20:02)
[2018-01-21] MEDS: NYSTATIN TOP POWDER 15 GM BOTTLE TP SCH ×2 (03:58→13:40)
[2018-01-21 04:00] VITALS: BP 113/55
[2018-01-21] MEDS: BLOOD SUGAR DIAGNOSTIC 1 EACH STRIP IN SCH ×5 (05:13→23:16)
[2018-01-21] MEDS: MIDODRINE HCL (5MG) 5 MG TABLET GT SCH ×3 (05:14→20:00)
[2018-01-21 06:56] LABS: BASOPHILS # (AUTO) 0.1 /CMM (0.0-0.2); BASOPHILS % (AUTO) 0.4 % (0.0-2.0); EOSINOPHILS # (AUTO) 0.9 /CMM (0.0-0.7); EOSINOPHILS % (AUTO) 6.9 % (0.0-6.0); HEMATOCRIT 21 % (33-45); HEMOGLOBIN 7.1 g/dL (11.5-14.8); LYMPHOCYTES % (AUTO) 7.8 % (20.0-44.0); MEAN CORPUSCULAR HEMOGLOBIN 32 PG (26.0-33.0); MEAN CORPUSCULAR HGB CONC 34 g/dl (31.0-36.0); MEAN CORPUSCULAR VOLUME 94 fL (82-100); MONOCYTES # (AUTO) 0.8 /CMM (0.1-1.30); MONOCYTES % (AUTO) 6.1 % (2.0-12.0); NEUTROPHILS # (AUTO) 10.6 /CMM (1.8-8.9); NEUTROPHILS % (AUTO) 78.8 % (43.0-81.0); PLATELET COUNT (AUTO) 363 /CMM (150-450); RED BLOOD CELL COUNT(AUTO) 2.23 MIL/uL (4.0-5.2); WHITE BLOOD COUNT (AUTO) 13.4 K/uL (4.3-11.0)
[2018-01-21 07:22] LABS: CALCIUM, SERUM 8.3 mg/dL (8.5-10.1); CARBON DIOXIDE 28 mmol/L (21-32); CHLORIDE 97 mmol/L (98-107); CREATININE 2.9 mg/dL (0.6-1.3); GLUCOSE 89 mg/dL (74-106); MAGNESIUM 2.1 mg/dL (1.8-2.4); PHOSPHORUS 3.4 mg/dL (2.5-4.9); POTASSIUM 3.9 mmol/L (3.5-5.1); SODIUM SERUM 135 mmol/L (136-145); UREA NITROGEN, BLOOD 70 mg/dL (7-18)
[2018-01-21 08:00] VITALS: BP 112/43
[2018-01-21] MEDS: FERROUS SULFATE (325 MG) 325 MG/TAB TABLET GT SCH (08:27)
[2018-01-21] MEDS: LACTOBACILLUS RHAMNOSUS GG 1 EACH CAP.SPRINK GT SCH ×2 (08:27→16:19)
[2018-01-21] MEDS: DOXYCYCLINE HYCLATE (100 MG) 100 MG TABLET GT SCH ×2 (08:27→20:06)
[2018-01-21] MEDS: DOCUSATE SODIUM LIQ 100 MG/10 ML UDC GT SCH (08:27)
[2018-01-21] MEDS: VITAMIN B COMP W-C 1 TAB TABLET GT SCH (08:27)
[2018-01-21] MEDS: risperiDONE 1 MG TABLET PO SCH ×2 (08:27→20:06)
[2018-01-21] MEDS: VIT B CMPLX 3/FA/VIT C/BIOTIN 1 TAB TABLET PO SCH (08:27)
[2018-01-21] MEDS: METOCLOPRAMIDE HCL 10 MG TABLET GT SCH ×2 (08:27→20:00)
[2018-01-21] MEDS: HEPARIN SODIUM, PORCINE 5000 UNITS/1 ML VIAL SQ SCH ×2 (08:28→20:02)
[2018-01-21] MEDS: PROSOURCE / PROSTAT (PYXIS) 30 ML UDC GT SCH ×3 (08:29→16:19)
[2018-01-21] MEDS: DAKINS QUARTER STRENGTH (0.125%) 480 ML BOTTLE TOP SCH (08:29)
[2018-01-21 12:00] VITALS: BP 97/41
[2018-01-21] MEDS: ALBUMIN 25% 25 GM in PREMIX 1 EA IV PRN (13:39)
[2018-01-21] MEDS ORDERED: FEE PK DOSING 1 MIN EA MC ONE (14:52)
[2018-01-21] MEDS ORDERED: VANCOMYCIN 500 MG in IV NS 0.9% 100 ML IV ONE (15:00)
[2018-01-21 16:00] VITALS: BP 112/53
[2018-01-21] MEDS ORDERED: VANCOMYCIN 1 GM in IV D5W 250 ML IV ONE (16:00)
[2018-01-21] MEDS: COLISTIMETHATE SODIUM 100 MG in IV NS 0.9% 50 ML IV SCH (19:57)
[2018-01-21 20:00] VITALS: BP 96/35
[2018-01-21] MEDS: ATORVASTATIN 40 MG TABLET GT SCH (22:05)
[2018-01-21] MEDS: INSULIN REGULAR, HUMAN 100 UNIT/ML 3 ML VIAL SQ PRN (23:16)
[2018-01-22] VITALS: BP 99/43
[2018-01-22] MEDS: IPRATROPIUM NEB FS 0.5 MG/2.5 ML AMPUL.NEB NEB SCH ×4 (01:22→19:43)
[2018-01-22] MEDS: ALBUTEROL HALF STRENGTH 1.25 MG/3 ML VIAL.NEB NEB SCH ×4 (01:22→19:43)
[2018-01-22] MEDS: NYSTATIN TOP POWDER 15 GM BOTTLE TP SCH ×2 (03:48→15:03)
[2018-01-22 04:00] VITALS: BP 99/43
[2018-01-22] MEDS: BLOOD SUGAR DIAGNOSTIC 1 EACH STRIP IN SCH ×3 (05:11→17:31)
[2018-01-22] MEDS: MIDODRINE HCL (5MG) 5 MG TABLET GT SCH ×3 (05:11→21:04)
[2018-01-22] MEDS: INSULIN REGULAR, HUMAN 100 UNIT/ML 3 ML VIAL SQ PRN (05:12)
[2018-01-22 06:40] LABS: CARBON DIOXIDE 32 mmol/L (21-32); CHLORIDE 99 mmol/L (98-107); CREATININE 2.7 mg/dL (0.6-1.3); GLUCOSE 103 mg/dL (74-106); POTASSIUM 3.8 mmol/L (3.5-5.1); SODIUM SERUM 135 mmol/L (136-145); UREA NITROGEN, BLOOD 58 mg/dL (7-18)
[2018-01-22 06:49] LABS: CALCIUM, SERUM 8.2 mg/dL (8.5-10.1)
[2018-01-22 08:00] VITALS: BP 105/51
[2018-01-22] MEDS: VITAMIN B COMP W-C 1 TAB TABLET GT SCH (08:12)
[2018-01-22] MEDS: DOXYCYCLINE HYCLATE (100 MG) 100 MG TABLET GT SCH ×2 (08:12→21:03)
[2018-01-22] MEDS: VIT B CMPLX 3/FA/VIT C/BIOTIN 1 TAB TABLET PO SCH (08:12)
[2018-01-22] MEDS: DOCUSATE SODIUM LIQ 100 MG/10 ML UDC GT SCH (08:12)
[2018-01-22] MEDS: risperiDONE 1 MG TABLET PO SCH ×2 (08:13→21:03)
[2018-01-22] MEDS: METOCLOPRAMIDE HCL 10 MG TABLET GT SCH ×2 (08:13→21:03)
[2018-01-22] MEDS: PROSOURCE / PROSTAT (PYXIS) 30 ML UDC GT SCH ×3 (08:13→16:24)
[2018-01-22] MEDS: LACTOBACILLUS RHAMNOSUS GG 1 EACH CAP.SPRINK GT SCH ×2 (08:13→16:24)
[2018-01-22] MEDS: DAKINS QUARTER STRENGTH (0.125%) 480 ML BOTTLE TOP SCH (08:14)
[2018-01-22] MEDS: HEPARIN SODIUM, PORCINE 5000 UNITS/1 ML VIAL SQ SCH ×2 (08:14→21:05)
[2018-01-22] MEDS: FERROUS SULFATE (325 MG) 325 MG/TAB TABLET GT SCH (08:22)
[2018-01-22 12:00] VITALS: BP 84/53
[2018-01-22] MEDS: ACETAMINOPHEN 325 MG TABLET PO PRN (12:04)
[2018-01-22 16:00] VITALS: BP 90/42
[2018-01-22] MEDS ORDERED: NS 0.9% IV PRN (16:00)
[2018-01-22] MEDS ORDERED: VANCOMYCIN IV PRN (16:00)
[2018-01-22 20:00] VITALS: BP 103/56
[2018-01-22] MEDS: ATORVASTATIN 40 MG TABLET GT SCH (21:03)
[2018-01-22] MEDS: COLISTIMETHATE SODIUM 100 MG in IV NS 0.9% 50 ML IV SCH (21:03)
[2018-01-23] VITALS (10 sets, daily range): BP systolic 73–115; BP diastolic 40–85
[2018-01-23] MEDS: ALBUTEROL HALF STRENGTH 1.25 MG/3 ML VIAL.NEB NEB SCH ×4 (00:50→20:20)
[2018-01-23] MEDS: IPRATROPIUM NEB FS 0.5 MG/2.5 ML AMPUL.NEB NEB SCH ×4 (00:50→20:20)
[2018-01-23] MEDS: MIDODRINE HCL (5MG) 5 MG TABLET GT SCH ×3 (04:30→20:15)
[2018-01-23] MEDS: NYSTATIN TOP POWDER 15 GM BOTTLE TP SCH ×2 (04:33→15:03)
[2018-01-23] MEDS: BLOOD SUGAR DIAGNOSTIC 1 EACH STRIP IN SCH ×5 (05:25→23:51)
[2018-01-23 06:49] LABS: CALCIUM, SERUM 8.6 mg/dL (8.5-10.1); CARBON DIOXIDE 29 mmol/L (21-32); CHLORIDE 97 mmol/L (98-107); CREATININE 3.4 mg/dL (0.6-1.3); GLUCOSE 96 mg/dL (74-106); SODIUM SERUM 133 mmol/L (136-145); UREA NITROGEN, BLOOD 71 mg/dL (7-18)
[2018-01-23 06:51] LABS: BASOPHILS % (AUTO) 0.2 % (0.0-2.0); EOSINOPHILS # (AUTO) 0.8 /CMM (0.0-0.7); EOSINOPHILS % (AUTO) 5.8 % (0.0-6.0); LYMPHOCYTES # (AUTO) 1.2 /CMM (0.8-4.8); LYMPHOCYTES % (AUTO) 7.9 % (20.0-44.0); MEAN CORPUSCULAR HEMOGLOBIN 31 PG (26.0-33.0); MEAN CORPUSCULAR HGB CONC 34 g/dl (31.0-36.0); MEAN CORPUSCULAR VOLUME 94 fL (82-100); MONOCYTES # (AUTO) 0.8 /CMM (0.1-1.30); MONOCYTES % (AUTO) 5.6 % (2.0-12.0); NEUTROPHILS # (AUTO) 11.8 /CMM (1.8-8.9); NEUTROPHILS % (AUTO) 80.5 % (43.0-81.0); PLATELET COUNT (AUTO) 316 /CMM (150-450); RDW COEFFICIENT OF VARIATION 19.2 (11.5-15.0); RED BLOOD CELL COUNT(AUTO) 2.12 MIL/uL (4.0-5.2); WHITE BLOOD COUNT (AUTO) 14.6 K/uL (4.3-11.0)
[2018-01-23 06:55] LABS: HEMOGLOBIN 6.7 g/dL (11.5-14.8)
[2018-01-23 06:56] LABS: HEMATOCRIT 20 % (33-45)
[2018-01-23] MEDS: HEPARIN SODIUM, PORCINE 5000 UNITS/1 ML VIAL SQ SCH (09:04)
[2018-01-23] MEDS: VIT B CMPLX 3/FA/VIT C/BIOTIN 1 TAB TABLET PO SCH (09:04)
[2018-01-23] MEDS: METOCLOPRAMIDE HCL 10 MG TABLET GT SCH ×2 (09:04→20:15)
[2018-01-23] MEDS: VITAMIN B COMP W-C 1 TAB TABLET GT SCH (09:04)
[2018-01-23] MEDS: DOCUSATE SODIUM LIQ 100 MG/10 ML UDC GT SCH (09:04)
[2018-01-23] MEDS: risperiDONE 1 MG TABLET PO SCH ×2 (09:04→20:15)
[2018-01-23] MEDS: FERROUS SULFATE (325 MG) 325 MG/TAB TABLET GT SCH (09:05)
[2018-01-23] MEDS: LACTOBACILLUS RHAMNOSUS GG 1 EACH CAP.SPRINK GT SCH ×2 (09:05→16:54)
[2018-01-23] MEDS: PROSOURCE / PROSTAT (PYXIS) 30 ML UDC GT SCH ×3 (09:05→16:54)
[2018-01-23] MEDS: DOXYCYCLINE HYCLATE (100 MG) 100 MG TABLET GT SCH (09:05)
[2018-01-23] MEDS: DAKINS QUARTER STRENGTH (0.125%) 480 ML BOTTLE TOP SCH (09:10)
[2018-01-23 10:21] LABS: BAND % (MANUAL) 6 % (0.0-5.0); EOSINOPHILS % (MANUAL) 8 % (0-4); LYMPHOCYTES % (MANUAL) 7 % (16-48); METAMYELOCYTES % 1 % (0-0); MONOCYTES % (MANUAL) 5 % (0-11.0); NEUTROPHILS % (MANUAL) 73 (42-76)
[2018-01-23] MEDS: ACETAMINOPHEN 325 MG TABLET PO PRN (12:51)
[2018-01-23] MEDS: ALBUMIN 25% 25 GM in PREMIX 1 EA IV PRN (14:43)
[2018-01-23] MEDS: ATORVASTATIN 40 MG TABLET GT SCH (20:15)
[2018-01-23] MEDS: COLISTIMETHATE SODIUM 100 MG in IV NS 0.9% 50 ML IV SCH (20:43)
[2018-01-23] MEDS: INSULIN REGULAR, HUMAN 100 UNIT/ML 3 ML VIAL SQ PRN (23:52)
[2018-01-24] VITALS: BP 106/56
[2018-01-24] MEDS: IPRATROPIUM NEB FS 0.5 MG/2.5 ML AMPUL.NEB NEB SCH ×5 (01:30→20:00)
[2018-01-24] MEDS: ALBUTEROL HALF STRENGTH 1.25 MG/3 ML VIAL.NEB NEB SCH ×5 (01:30→20:00)
[2018-01-24] MEDS: NYSTATIN TOP POWDER 15 GM BOTTLE TP SCH ×2 (03:45→15:13)
[2018-01-24 04:00] VITALS: BP 106/58
[2018-01-24] MEDS: MIDODRINE HCL (5MG) 5 MG TABLET GT SCH ×3 (04:54→19:50)
[2018-01-24] MEDS: BLOOD SUGAR DIAGNOSTIC 1 EACH STRIP IN SCH ×3 (05:00→17:13)
[2018-01-24] MEDS: INSULIN REGULAR, HUMAN 100 UNIT/ML 3 ML VIAL SQ PRN (05:01)
[2018-01-24] MEDS: RENAL NOVASOURCE 1,000 ML BOTTLE GT PRN (05:02)
[2018-01-24 06:59] LABS: CALCIUM, SERUM 8.4 mg/dL (8.5-10.1); CARBON DIOXIDE 27 mmol/L (21-32); CHLORIDE 101 mmol/L (98-107); GLUCOSE 85 mg/dL (74-106); MAGNESIUM 2.1 mg/dL (1.8-2.4); PHOSPHORUS 3.4 mg/dL (2.5-4.9); SODIUM SERUM 139 mmol/L (136-145); UREA NITROGEN, BLOOD 57 mg/dL (7-18)
[2018-01-24 07:07] LABS: BASOPHILS % (AUTO) 0.1 % (0.0-2.0); EOSINOPHILS # (AUTO) 0.7 /CMM (0.0-0.7); HEMATOCRIT 21 % (33-45); LYMPHOCYTES % (AUTO) 7.6 % (20.0-44.0); MEAN CORPUSCULAR HEMOGLOBIN 31 PG (26.0-33.0); MEAN CORPUSCULAR HGB CONC 33 g/dl (31.0-36.0); MEAN CORPUSCULAR VOLUME 94 fL (82-100); MONOCYTES # (AUTO) 0.7 /CMM (0.1-1.30); MONOCYTES % (AUTO) 5.4 % (2.0-12.0); NEUTROPHILS # (AUTO) 11.3 /CMM (1.8-8.9); NEUTROPHILS % (AUTO) 81.9 % (43.0-81.0); PLATELET COUNT (AUTO) 291 /CMM (150-450); RDW COEFFICIENT OF VARIATION 18.8 (11.5-15.0); RED BLOOD CELL COUNT(AUTO) 2.23 MIL/uL (4.0-5.2); WHITE BLOOD COUNT (AUTO) 13.8 K/uL (4.3-11.0)
[2018-01-24 08:00] VITALS: BP 108/51
[2018-01-24] MEDS: METOCLOPRAMIDE HCL 10 MG TABLET GT SCH ×2 (09:21→19:49)
[2018-01-24] MEDS: VIT B CMPLX 3/FA/VIT C/BIOTIN 1 TAB TABLET PO SCH (09:21)
[2018-01-24] MEDS: LACTOBACILLUS RHAMNOSUS GG 1 EACH CAP.SPRINK GT SCH ×2 (09:21→16:36)
[2018-01-24] MEDS: VITAMIN B COMP W-C 1 TAB TABLET GT SCH (09:21)
[2018-01-24] MEDS: FERROUS SULFATE (325 MG) 325 MG/TAB TABLET GT SCH (09:21)
[2018-01-24] MEDS: risperiDONE 1 MG TABLET PO SCH ×2 (09:21→19:49)
[2018-01-24] MEDS: DAKINS QUARTER STRENGTH (0.125%) 480 ML BOTTLE TOP SCH (09:21)
[2018-01-24] MEDS: DOCUSATE SODIUM LIQ 100 MG/10 ML UDC GT SCH (09:21)
[2018-01-24] MEDS: PROSOURCE / PROSTAT (PYXIS) 30 ML UDC GT SCH ×3 (09:27→16:36)
[2018-01-24 12:00] VITALS: BP 101/47
[2018-01-24 16:00] VITALS: BP 94/46
[2018-01-24] MEDS: COLISTIMETHATE SODIUM 100 MG in IV NS 0.9% 50 ML IV SCH (19:51)
[2018-01-24 20:00] VITALS: BP 92/26
[2018-01-24] MEDS: ATORVASTATIN 40 MG TABLET GT SCH (21:01)
[2018-01-24] MEDS: ACETAMINOPHEN 325 MG TABLET PO PRN (22:29)
[2018-01-25] VITALS (7 sets, daily range): BP systolic 95–121; BP diastolic 48–69
[2018-01-25] MEDS: BLOOD SUGAR DIAGNOSTIC 1 EACH STRIP IN SCH ×5 (00:45→23:57)
[2018-01-25] MEDS: IPRATROPIUM NEB FS 0.5 MG/2.5 ML AMPUL.NEB NEB SCH ×4 (01:24→20:09)
[2018-01-25] MEDS: ALBUTEROL HALF STRENGTH 1.25 MG/3 ML VIAL.NEB NEB SCH ×4 (01:24→20:09)
[2018-01-25] MEDS: NYSTATIN TOP POWDER 15 GM BOTTLE TP SCH ×2 (03:55→15:53)
[2018-01-25] MEDS: MIDODRINE HCL (5MG) 5 MG TABLET GT SCH ×3 (06:27→21:06)
[2018-01-25 07:12] LABS: BASOPHILS # (AUTO) 0.1 /CMM (0.0-0.2); BASOPHILS % (AUTO) 0.4 % (0.0-2.0); EOSINOPHILS # (AUTO) 0.8 /CMM (0.0-0.7); EOSINOPHILS % (AUTO) 5.8 % (0.0-6.0); HEMATOCRIT 22 % (33-45); HEMOGLOBIN 7.3 g/dL (11.5-14.8); LYMPHOCYTES # (AUTO) 1.2 /CMM (0.8-4.8); LYMPHOCYTES % (AUTO) 8.8 % (20.0-44.0); MEAN CORPUSCULAR HEMOGLOBIN 32 PG (26.0-33.0); MEAN CORPUSCULAR HGB CONC 34 g/dl (31.0-36.0); MEAN CORPUSCULAR VOLUME 94 fL (82-100); MONOCYTES # (AUTO) 0.8 /CMM (0.1-1.30); MONOCYTES % (AUTO) 5.4 % (2.0-12.0); NEUTROPHILS # (AUTO) 11.3 /CMM (1.8-8.9); NEUTROPHILS % (AUTO) 79.6 % (43.0-81.0); PLATELET COUNT (AUTO) 297 /CMM (150-450); RED BLOOD CELL COUNT(AUTO) 2.33 MIL/uL (4.0-5.2); WHITE BLOOD COUNT (AUTO) 14.2 K/uL (4.3-11.0)
[2018-01-25 07:23] LABS: CALCIUM, SERUM 8.4 mg/dL (8.5-10.1); CARBON DIOXIDE 28 mmol/L (21-32); CHLORIDE 99 mmol/L (98-107); CREATININE 3.5 mg/dL (0.6-1.3); GLUCOSE 94 mg/dL (74-106); POTASSIUM 4.2 mmol/L (3.5-5.1); SODIUM SERUM 136 mmol/L (136-145); UREA NITROGEN, BLOOD 77 mg/dL (7-18)
[2018-01-25] MEDS: DOCUSATE SODIUM LIQ 100 MG/10 ML UDC GT SCH (09:33)
[2018-01-25] MEDS: VITAMIN B COMP W-C 1 TAB TABLET GT SCH (09:33)
[2018-01-25] MEDS: FERROUS SULFATE (325 MG) 325 MG/TAB TABLET GT SCH (09:34)
[2018-01-25] MEDS: VIT B CMPLX 3/FA/VIT C/BIOTIN 1 TAB TABLET PO SCH (09:34)
[2018-01-25] MEDS: LACTOBACILLUS RHAMNOSUS GG 1 EACH CAP.SPRINK GT SCH ×2 (09:34→17:58)
[2018-01-25] MEDS: risperiDONE 1 MG TABLET PO SCH ×2 (09:34→21:04)
[2018-01-25] MEDS: METOCLOPRAMIDE HCL 10 MG TABLET GT SCH ×2 (09:34→21:04)
[2018-01-25] MEDS: DAKINS QUARTER STRENGTH (0.125%) 480 ML BOTTLE TOP SCH (09:35)
[2018-01-25] MEDS: PROSOURCE / PROSTAT (PYXIS) 30 ML UDC GT SCH ×3 (09:35→17:58)
[2018-01-25] MEDS: RENAL NOVASOURCE 1,000 ML BOTTLE GT PRN (17:58)
[2018-01-25] MEDS: DOXYCYCLINE HYCLATE (100 MG) 100 MG TABLET PO SCH (21:04)
[2018-01-25] MEDS: COLISTIMETHATE SODIUM 100 MG in IV NS 0.9% 50 ML IV SCH (21:05)
[2018-01-25] MEDS: ACETAMINOPHEN 325 MG TABLET PO PRN (21:10)
[2018-01-25] MEDS: ATORVASTATIN 40 MG TABLET GT SCH (21:17)
[2018-01-26] VITALS (8 sets, daily range): BP systolic 93–114; BP diastolic 40–71
[2018-01-26] MEDS: ALBUTEROL HALF STRENGTH 1.25 MG/3 ML VIAL.NEB NEB SCH ×4 (01:33→19:42)
[2018-01-26] MEDS: IPRATROPIUM NEB FS 0.5 MG/2.5 ML AMPUL.NEB NEB SCH ×4 (01:33→19:42)
[2018-01-26] MEDS: NYSTATIN TOP POWDER 15 GM BOTTLE TP SCH ×2 (02:33→17:28)
[2018-01-26] MEDS: MIDODRINE HCL (5MG) 5 MG TABLET GT SCH ×3 (04:21→20:57)
[2018-01-26] MEDS: BLOOD SUGAR DIAGNOSTIC 1 EACH STRIP IN SCH ×3 (05:11→17:27)
[2018-01-26 06:24] LABS: BASOPHILS % (AUTO) 0.2 % (0.0-2.0); EOSINOPHILS # (AUTO) 0.8 /CMM (0.0-0.7); EOSINOPHILS % (AUTO) 6.2 % (0.0-6.0); HEMATOCRIT 21 % (33-45); HEMOGLOBIN 7.2 g/dL (11.5-14.8); LYMPHOCYTES # (AUTO) 1.2 /CMM (0.8-4.8); LYMPHOCYTES % (AUTO) 8.7 % (20.0-44.0); MEAN CORPUSCULAR HEMOGLOBIN 32 PG (26.0-33.0); MEAN CORPUSCULAR HGB CONC 34 g/dl (31.0-36.0); MEAN CORPUSCULAR VOLUME 94 fL (82-100); MONOCYTES # (AUTO) 0.7 /CMM (0.1-1.30); MONOCYTES % (AUTO) 5.4 % (2.0-12.0); NEUTROPHILS # (AUTO) 10.5 /CMM (1.8-8.9); NEUTROPHILS % (AUTO) 79.5 % (43.0-81.0); PLATELET COUNT (AUTO) 305 /CMM (150-450); RDW COEFFICIENT OF VARIATION 18.4 (11.5-15.0); RED BLOOD CELL COUNT(AUTO) 2.28 MIL/uL (4.0-5.2); WHITE BLOOD COUNT (AUTO) 13.2 K/uL (4.3-11.0)
[2018-01-26 06:26] LABS: CALCIUM, SERUM 8.6 mg/dL (8.5-10.1); CARBON DIOXIDE 28 mmol/L (21-32); CHLORIDE 98 mmol/L (98-107); CREATININE 3.1 mg/dL (0.6-1.3); GLUCOSE 91 mg/dL (74-106); MAGNESIUM 1.9 mg/dL (1.8-2.4); POTASSIUM 4.1 mmol/L (3.5-5.1); SODIUM SERUM 134 mmol/L (136-145); UREA NITROGEN, BLOOD 69 mg/dL (7-18)
[2018-01-26] MEDS: FERROUS SULFATE (325 MG) 325 MG/TAB TABLET GT SCH (10:38)
[2018-01-26] MEDS: VITAMIN B COMP W-C 1 TAB TABLET GT SCH (10:38)
[2018-01-26] MEDS: DOXYCYCLINE HYCLATE (100 MG) 100 MG TABLET PO SCH ×2 (10:38→20:55)
[2018-01-26] MEDS: DOCUSATE SODIUM LIQ 100 MG/10 ML UDC GT SCH (10:38)
[2018-01-26] MEDS: VIT B CMPLX 3/FA/VIT C/BIOTIN 1 TAB TABLET PO SCH (10:38)
[2018-01-26] MEDS: LACTOBACILLUS RHAMNOSUS GG 1 EACH CAP.SPRINK GT SCH ×2 (10:39→17:27)
[2018-01-26] MEDS: METOCLOPRAMIDE HCL 10 MG TABLET GT SCH ×2 (10:39→20:55)
[2018-01-26] MEDS: risperiDONE 1 MG TABLET PO SCH ×2 (10:39→20:55)
[2018-01-26] MEDS: DAKINS QUARTER STRENGTH (0.125%) 480 ML BOTTLE TOP SCH (10:39)
[2018-01-26] MEDS: PROSOURCE / PROSTAT (PYXIS) 30 ML UDC GT SCH ×3 (10:41→17:27)
[2018-01-26] MEDS: HYDROCODONE/APAP 5/325MG 1 EACH TABLET PO PRN (17:57)
[2018-01-26] MEDS: COLISTIMETHATE SODIUM 100 MG in IV NS 0.9% 50 ML IV SCH (20:54)
[2018-01-26] MEDS: ATORVASTATIN 40 MG TABLET GT SCH (21:00)
[2018-01-27] VITALS: BP 94/40
[2018-01-27] MEDS: BLOOD SUGAR DIAGNOSTIC 1 EACH STRIP IN SCH ×5 (01:26→23:14)
[2018-01-27] MEDS: IPRATROPIUM NEB FS 0.5 MG/2.5 ML AMPUL.NEB NEB SCH ×4 (01:51→19:53)
[2018-01-27] MEDS: ALBUTEROL HALF STRENGTH 1.25 MG/3 ML VIAL.NEB NEB SCH ×4 (01:51→19:53)
[2018-01-27 04:00] VITALS: BP 92/69
[2018-01-27] MEDS: MIDODRINE HCL (5MG) 5 MG TABLET GT SCH ×3 (04:27→20:41)
[2018-01-27] MEDS: NYSTATIN TOP POWDER 15 GM BOTTLE TP SCH ×2 (04:28→15:25)
[2018-01-27] MEDS: RENAL NOVASOURCE 1,000 ML BOTTLE GT PRN (04:28)
[2018-01-27 06:32] LABS: BASOPHILS % (AUTO) 0.3 % (0.0-2.0); EOSINOPHILS # (AUTO) 0.6 /CMM (0.0-0.7); EOSINOPHILS % (AUTO) 4.1 % (0.0-6.0); HEMATOCRIT 21 % (33-45); HEMOGLOBIN 7.4 g/dL (11.5-14.8); LYMPHOCYTES # (AUTO) 0.9 /CMM (0.8-4.8); LYMPHOCYTES % (AUTO) 6.4 % (20.0-44.0); MEAN CORPUSCULAR HEMOGLOBIN 32 PG (26.0-33.0); MEAN CORPUSCULAR HGB CONC 35 g/dl (31.0-36.0); MEAN CORPUSCULAR VOLUME 93 fL (82-100); MONOCYTES # (AUTO) 0.7 /CMM (0.1-1.30); NEUTROPHILS # (AUTO) 12.2 /CMM (1.8-8.9); NEUTROPHILS % (AUTO) 84.2 % (43.0-81.0); PLATELET COUNT (AUTO) 297 /CMM (150-450); RDW COEFFICIENT OF VARIATION 17.8 (11.5-15.0); WHITE BLOOD COUNT (AUTO) 14.5 K/uL (4.3-11.0)
[2018-01-27 06:42] LABS: CALCIUM, SERUM 8.6 mg/dL (8.5-10.1); CARBON DIOXIDE 28 mmol/L (21-32); CHLORIDE 98 mmol/L (98-107); CREATININE 3.6 mg/dL (0.6-1.3); GLUCOSE 95 mg/dL (74-106); MAGNESIUM 1.9 mg/dL (1.8-2.4); PHOSPHORUS 3.5 mg/dL (2.5-4.9); POTASSIUM 4.5 mmol/L (3.5-5.1); SODIUM SERUM 136 mmol/L (136-145)
[2018-01-27 07:00] LABS: UREA NITROGEN, BLOOD 80 mg/dL (7-18)
[2018-01-27 08:00] VITALS: BP 101/47
[2018-01-27] MEDS: DOCUSATE SODIUM LIQ 100 MG/10 ML UDC GT SCH (08:28)
[2018-01-27] MEDS: DAKINS QUARTER STRENGTH (0.125%) 480 ML BOTTLE TOP SCH (08:28)
[2018-01-27] MEDS: PROSOURCE / PROSTAT (PYXIS) 30 ML UDC GT SCH ×3 (08:29→17:41)
[2018-01-27] MEDS: VITAMIN B COMP W-C 1 TAB TABLET GT SCH (08:29)
[2018-01-27] MEDS: DOXYCYCLINE HYCLATE (100 MG) 100 MG TABLET PO SCH ×2 (08:29→20:42)
[2018-01-27] MEDS: FERROUS SULFATE (325 MG) 325 MG/TAB TABLET GT SCH (08:29)
[2018-01-27] MEDS: risperiDONE 1 MG TABLET PO SCH ×2 (08:29→20:40)
[2018-01-27] MEDS: METOCLOPRAMIDE HCL 10 MG TABLET GT SCH ×2 (08:29→20:40)
[2018-01-27] MEDS: VIT B CMPLX 3/FA/VIT C/BIOTIN 1 TAB TABLET PO SCH (08:29)
[2018-01-27] MEDS: LACTOBACILLUS RHAMNOSUS GG 1 EACH CAP.SPRINK GT SCH ×2 (08:29→17:41)
[2018-01-27 12:00] VITALS: BP 87/45
[2018-01-27 16:00] VITALS: BP 101/47
[2018-01-27] MEDS: Z GUARD REMEDY 2 OZ OINT TP PRN (17:05)
[2018-01-27 20:00] VITALS: BP 95/47
[2018-01-27] MEDS: COLISTIMETHATE SODIUM 100 MG in IV NS 0.9% 50 ML IV SCH (20:40)
[2018-01-27] MEDS: ATORVASTATIN 40 MG TABLET GT SCH (21:00)
[2018-01-28] VITALS: BP_SYST 112; BP_SYST 90; BP_DIAS 61
[2018-01-28] MEDS: IPRATROPIUM NEB FS 0.5 MG/2.5 ML AMPUL.NEB NEB SCH ×4 (01:16→19:45)
[2018-01-28] MEDS: ALBUTEROL HALF STRENGTH 1.25 MG/3 ML VIAL.NEB NEB SCH ×4 (01:16→19:45)
[2018-01-28] MEDS: RENAL NOVASOURCE 1,000 ML BOTTLE GT PRN (02:10)
[2018-01-28] MEDS: HYDROCODONE/APAP 5/325MG 1 EACH TABLET PO PRN (02:10)
[2018-01-28] MEDS: NYSTATIN TOP POWDER 15 GM BOTTLE TP SCH ×2 (02:11→14:50)
[2018-01-28 04:00] VITALS: BP 97/60
[2018-01-28] MEDS: MIDODRINE HCL (5MG) 5 MG TABLET GT SCH ×3 (04:49→20:23)
[2018-01-28] MEDS: BLOOD SUGAR DIAGNOSTIC 1 EACH STRIP IN SCH ×4 (05:14→23:24)
[2018-01-28 06:29] LABS: BASOPHILS % (AUTO) 0.2 % (0.0-2.0); EOSINOPHILS # (AUTO) 0.7 /CMM (0.0-0.7); EOSINOPHILS % (AUTO) 6.1 % (0.0-6.0); HEMATOCRIT 21 % (33-45); LYMPHOCYTES # (AUTO) 1.1 /CMM (0.8-4.8); LYMPHOCYTES % (AUTO) 8.7 % (20.0-44.0); MEAN CORPUSCULAR HEMOGLOBIN 32 PG (26.0-33.0); MEAN CORPUSCULAR HGB CONC 34 g/dl (31.0-36.0); MEAN CORPUSCULAR VOLUME 94 fL (82-100); MONOCYTES # (AUTO) 0.7 /CMM (0.1-1.30); MONOCYTES % (AUTO) 5.9 % (2.0-12.0); NEUTROPHILS # (AUTO) 9.6 /CMM (1.8-8.9); NEUTROPHILS % (AUTO) 79.1 % (43.0-81.0); PLATELET COUNT (AUTO) 291 /CMM (150-450); RDW COEFFICIENT OF VARIATION 18.1 (11.5-15.0); RED BLOOD CELL COUNT(AUTO) 2.18 MIL/uL (4.0-5.2); WHITE BLOOD COUNT (AUTO) 12.1 K/uL (4.3-11.0)
[2018-01-28 06:40] LABS: HEMOGLOBIN 6.9 g/dL (11.5-14.8)
[2018-01-28 07:06] LABS: CALCIUM, SERUM 8.5 mg/dL (8.5-10.1); CARBON DIOXIDE 29 mmol/L (21-32); CHLORIDE 97 mmol/L (98-107); CREATININE 3.1 mg/dL (0.6-1.3); GLUCOSE 97 mg/dL (74-106); MAGNESIUM 1.9 mg/dL (1.8-2.4); PHOSPHORUS 2.9 mg/dL (2.5-4.9); POTASSIUM 3.9 mmol/L (3.5-5.1); SODIUM SERUM 134 mmol/L (136-145); UREA NITROGEN, BLOOD 70 mg/dL (7-18)
[2018-01-28 08:00] VITALS: BP 107/51
[2018-01-28 08:56] LABS: EOSINOPHILS % (MANUAL) 5 % (0-4); LYMPHOCYTES % (MANUAL) 10 % (16-48); MONOCYTES % (MANUAL) 5 % (0-11.0); NEUTROPHILS % (MANUAL) 80 (42-76)
[2018-01-28] MEDS: VITAMIN B COMP W-C 1 TAB TABLET GT SCH (09:05)
[2018-01-28] MEDS: VIT B CMPLX 3/FA/VIT C/BIOTIN 1 TAB TABLET PO SCH (09:05)
[2018-01-28] MEDS: FERROUS SULFATE (325 MG) 325 MG/TAB TABLET GT SCH (09:05)
[2018-01-28] MEDS: DOCUSATE SODIUM LIQ 100 MG/10 ML UDC GT SCH (09:05)
[2018-01-28] MEDS: LACTOBACILLUS RHAMNOSUS GG 1 EACH CAP.SPRINK GT SCH ×2 (09:05→17:12)
[2018-01-28] MEDS: METOCLOPRAMIDE HCL 10 MG TABLET GT SCH ×2 (09:06→20:22)
[2018-01-28] MEDS: PROSOURCE / PROSTAT (PYXIS) 30 ML UDC GT SCH ×3 (09:06→17:13)
[2018-01-28] MEDS: risperiDONE 1 MG TABLET PO SCH ×2 (09:06→20:23)
[2018-01-28] MEDS: DAKINS QUARTER STRENGTH (0.125%) 480 ML BOTTLE TOP SCH (09:06)
[2018-01-28] MEDS: DOXYCYCLINE HYCLATE (100 MG) 100 MG TABLET PO SCH ×2 (09:06→20:22)
[2018-01-28 12:00] VITALS: BP 128/47
[2018-01-28 16:00] VITALS: BP 98/54
[2018-01-28] MEDS: COLISTIMETHATE SODIUM 100 MG in IV NS 0.9% 50 ML IV SCH (19:55)
[2018-01-28 20:00] VITALS: BP 97/53
[2018-01-28] MEDS: ATORVASTATIN 40 MG TABLET GT SCH (20:23)
[2018-01-28] MEDS: INSULIN REGULAR, HUMAN 100 UNIT/ML 3 ML VIAL SQ PRN (23:25)
[2018-01-29] VITALS (10 sets, daily range): BP systolic 83–125; BP diastolic 31–66
[2018-01-29] MEDS: ALBUTEROL HALF STRENGTH 1.25 MG/3 ML VIAL.NEB NEB SCH ×4 (01:15→19:46)
[2018-01-29] MEDS: IPRATROPIUM NEB FS 0.5 MG/2.5 ML AMPUL.NEB NEB SCH ×4 (01:15→19:46)
[2018-01-29] MEDS: NYSTATIN TOP POWDER 15 GM BOTTLE TP SCH ×2 (02:52→14:41)
[2018-01-29] MEDS: MIDODRINE HCL (5MG) 5 MG TABLET GT SCH ×3 (04:39→20:41)
[2018-01-29] MEDS: RENAL NOVASOURCE 1,000 ML BOTTLE GT PRN (04:50)
[2018-01-29] MEDS: BLOOD SUGAR DIAGNOSTIC 1 EACH STRIP IN SCH ×4 (05:26→23:04)
[2018-01-29] MEDS: INSULIN REGULAR, HUMAN 100 UNIT/ML 3 ML VIAL SQ PRN ×2 (05:27→23:05)
[2018-01-29 06:59] LABS: CALCIUM, SERUM 8.8 mg/dL (8.5-10.1); CARBON DIOXIDE 27 mmol/L (21-32); CHLORIDE 96 mmol/L (98-107); CREATININE 3.5 mg/dL (0.6-1.3); GLUCOSE 104 mg/dL (74-106); PHOSPHORUS 3.2 mg/dL (2.5-4.9); POTASSIUM 4.2 mmol/L (3.5-5.1); SODIUM SERUM 132 mmol/L (136-145); UREA NITROGEN, BLOOD 78 mg/dL (7-18)
[2018-01-29 07:15] LABS: BASOPHILS % (AUTO) 0.1 % (0.0-2.0); EOSINOPHILS # (AUTO) 0.8 /CMM (0.0-0.7); EOSINOPHILS % (AUTO) 5.7 % (0.0-6.0); HEMATOCRIT 21 % (33-45); LYMPHOCYTES # (AUTO) 1.1 /CMM (0.8-4.8); LYMPHOCYTES % (AUTO) 7.1 % (20.0-44.0); MEAN CORPUSCULAR HEMOGLOBIN 31 PG (26.0-33.0); MEAN CORPUSCULAR HGB CONC 33 g/dl (31.0-36.0); MEAN CORPUSCULAR VOLUME 94 fL (82-100); MONOCYTES % (AUTO) 6.8 % (2.0-12.0); NEUTROPHILS # (AUTO) 11.8 /CMM (1.8-8.9); NEUTROPHILS % (AUTO) 80.3 % (43.0-81.0); PLATELET COUNT (AUTO) 318 /CMM (150-450); RDW COEFFICIENT OF VARIATION 18.5 (11.5-15.0); RED BLOOD CELL COUNT(AUTO) 2.21 MIL/uL (4.0-5.2); WHITE BLOOD COUNT (AUTO) 14.7 K/uL (4.3-11.0)
[2018-01-29 07:20] LABS: HEMOGLOBIN 6.9 g/dL (11.5-14.8)
[2018-01-29] MEDS: PROSOURCE / PROSTAT (PYXIS) 30 ML UDC GT SCH ×3 (08:02→16:16)
[2018-01-29] MEDS: METOCLOPRAMIDE HCL 10 MG TABLET GT SCH ×2 (08:02→20:40)
[2018-01-29] MEDS: DOCUSATE SODIUM LIQ 100 MG/10 ML UDC GT SCH (08:02)
[2018-01-29] MEDS: DOXYCYCLINE HYCLATE (100 MG) 100 MG TABLET PO SCH ×2 (08:02→20:40)
[2018-01-29] MEDS: VITAMIN B COMP W-C 1 TAB TABLET GT SCH (08:02)
[2018-01-29] MEDS: LACTOBACILLUS RHAMNOSUS GG 1 EACH CAP.SPRINK GT SCH ×2 (08:02→16:16)
[2018-01-29] MEDS: FERROUS SULFATE (325 MG) 325 MG/TAB TABLET GT SCH (08:02)
[2018-01-29] MEDS: risperiDONE 1 MG TABLET PO SCH ×2 (08:02→20:40)
[2018-01-29] MEDS: VIT B CMPLX 3/FA/VIT C/BIOTIN 1 TAB TABLET PO SCH (08:19)
[2018-01-29 09:16] LABS: BAND % (MANUAL) 2 % (0.0-5.0); EOSINOPHILS % (MANUAL) 6 % (0-4); LYMPHOCYTES % (MANUAL) 9 % (16-48); MONOCYTES % (MANUAL) 5 % (0-11.0); NEUTROPHILS % (MANUAL) 78 (42-76)
[2018-01-29] MEDS: DAKINS QUARTER STRENGTH (0.125%) 480 ML BOTTLE TOP SCH (10:35)
[2018-01-29] MEDS: COLISTIMETHATE SODIUM 100 MG in IV NS 0.9% 50 ML IV SCH (20:03)
[2018-01-29] MEDS: ATORVASTATIN 40 MG TABLET GT SCH (20:58)
[2018-01-30] VITALS (9 sets, daily range): BP systolic 68–94; BP diastolic 38–55
[2018-01-30] MEDS: IPRATROPIUM NEB FS 0.5 MG/2.5 ML AMPUL.NEB NEB SCH ×4 (01:21→19:47)
[2018-01-30] MEDS: ALBUTEROL HALF STRENGTH 1.25 MG/3 ML VIAL.NEB NEB SCH ×4 (01:21→19:47)
[2018-01-30] MEDS: NYSTATIN TOP POWDER 15 GM BOTTLE TP SCH ×2 (03:06→15:08)
[2018-01-30] MEDS: MIDODRINE HCL (5MG) 5 MG TABLET GT SCH ×4 (04:27→21:07)
[2018-01-30] MEDS: BLOOD SUGAR DIAGNOSTIC 1 EACH STRIP IN SCH ×4 (05:04→23:11)
[2018-01-30] MEDS: INSULIN REGULAR, HUMAN 100 UNIT/ML 3 ML VIAL SQ PRN ×2 (05:05→23:11)
[2018-01-30 06:35] LABS: BASOPHILS % (AUTO) 0.1 % (0.0-2.0); EOSINOPHILS # (AUTO) 0.6 /CMM (0.0-0.7); HEMATOCRIT 21 % (33-45); HEMOGLOBIN 7.4 g/dL (11.5-14.8); LYMPHOCYTES % (AUTO) 6.4 % (20.0-44.0); MEAN CORPUSCULAR HEMOGLOBIN 32 PG (26.0-33.0); MEAN CORPUSCULAR HGB CONC 35 g/dl (31.0-36.0); MEAN CORPUSCULAR VOLUME 92 fL (82-100); MONOCYTES # (AUTO) 0.9 /CMM (0.1-1.30); MONOCYTES % (AUTO) 6.2 % (2.0-12.0); NEUTROPHILS # (AUTO) 12.7 /CMM (1.8-8.9); NEUTROPHILS % (AUTO) 83.3 % (43.0-81.0); PLATELET COUNT (AUTO) 300 /CMM (150-450); RDW COEFFICIENT OF VARIATION 18.6 (11.5-15.0); RED BLOOD CELL COUNT(AUTO) 2.31 MIL/uL (4.0-5.2); WHITE BLOOD COUNT (AUTO) 15.2 K/uL (4.3-11.0)
[2018-01-30 06:48] LABS: CALCIUM, SERUM 8.5 mg/dL (8.5-10.1); CARBON DIOXIDE 33 mmol/L (21-32); CHLORIDE 96 mmol/L (98-107); CREATININE 3.3 mg/dL (0.6-1.3); GLUCOSE 102 mg/dL (74-106); MAGNESIUM 1.9 mg/dL (1.8-2.4); PHOSPHORUS 2.9 mg/dL (2.5-4.9); POTASSIUM 4.1 mmol/L (3.5-5.1); SODIUM SERUM 132 mmol/L (136-145); UREA NITROGEN, BLOOD 73 mg/dL (7-18)
[2018-01-30] MEDS: LACTOBACILLUS RHAMNOSUS GG 1 EACH CAP.SPRINK GT SCH ×2 (10:06→16:41)
[2018-01-30] MEDS: VIT B CMPLX 3/FA/VIT C/BIOTIN 1 TAB TABLET PO SCH (10:06)
[2018-01-30] MEDS: METOCLOPRAMIDE HCL 10 MG TABLET GT SCH ×2 (10:06→21:07)
[2018-01-30] MEDS: DOCUSATE SODIUM LIQ 100 MG/10 ML UDC GT SCH (10:06)
[2018-01-30] MEDS: DOXYCYCLINE HYCLATE (100 MG) 100 MG TABLET PO SCH ×2 (10:06→21:06)
[2018-01-30] MEDS: risperiDONE 1 MG TABLET PO SCH ×2 (10:06→21:06)
[2018-01-30] MEDS: VITAMIN B COMP W-C 1 TAB TABLET GT SCH (10:06)
[2018-01-30] MEDS: DAKINS QUARTER STRENGTH (0.125%) 480 ML BOTTLE TOP SCH (10:07)
[2018-01-30] MEDS: FERROUS SULFATE (325 MG) 325 MG/TAB TABLET GT SCH (10:07)
[2018-01-30] MEDS: PROSOURCE / PROSTAT (PYXIS) 30 ML UDC GT SCH ×3 (10:08→16:41)
[2018-01-30] MEDS: ACETAMINOPHEN 325 MG TABLET PO PRN (11:32)
[2018-01-30] MEDS ORDERED: IV NS 0.9% 250 ML BAG IV ONE (13:30)
[2018-01-30] MEDS ORDERED: IV NS 0.9% 500 ML BAG IV ONE (13:30)
[2018-01-30] MEDS: HYDROCODONE/APAP 5/325MG 1 EACH TABLET PO PRN (14:21)
[2018-01-30] MEDS ORDERED: IV NS 0.9% 500 ML IV ONE (16:30)
[2018-01-30 17:12] LABS: ALBUMIN 1.7 g/dL (3.4-5.0); BILIRUBIN,DIRECT 0.3 mg/dL (0.0-0.2); BILIRUBIN,TOTAL 0.6 mg/dL (0.2-1.0); TOTAL PROTEIN, SERUM 6.6 g/dL (6.4-8.2)
[2018-01-30] MEDS: COLISTIMETHATE SODIUM 100 MG in IV NS 0.9% 50 ML IV SCH (20:22)
[2018-01-30] MEDS: ATORVASTATIN 40 MG TABLET GT SCH (21:06)
[2018-01-31] VITALS (7 sets, daily range): BP systolic 89–103; BP diastolic 43–56
[2018-01-31] MEDS: ALBUTEROL HALF STRENGTH 1.25 MG/3 ML VIAL.NEB NEB SCH ×4 (01:42→19:42)
[2018-01-31] MEDS: IPRATROPIUM NEB FS 0.5 MG/2.5 ML AMPUL.NEB NEB SCH ×4 (01:42→19:42)
[2018-01-31] MEDS: NYSTATIN TOP POWDER 15 GM BOTTLE TP SCH ×2 (03:32→16:49)
[2018-01-31] MEDS: MIDODRINE HCL (5MG) 5 MG TABLET GT SCH ×3 (04:32→21:05)
[2018-01-31] MEDS: BLOOD SUGAR DIAGNOSTIC 1 EACH STRIP IN SCH ×3 (05:28→16:48)
[2018-01-31] MEDS: INSULIN REGULAR, HUMAN 100 UNIT/ML 3 ML VIAL SQ PRN (05:28)
[2018-01-31] MEDS: RENAL NOVASOURCE 1,000 ML BOTTLE GT PRN (05:28)
[2018-01-31 06:45] LABS: EOSINOPHILS # (AUTO) 0.8 /CMM (0.0-0.7); EOSINOPHILS % (AUTO) 5.7 % (0.0-6.0); HEMATOCRIT 22 % (33-45); HEMOGLOBIN 7.3 g/dL (11.5-14.8); LYMPHOCYTES % (AUTO) 7.1 % (20.0-44.0); MEAN CORPUSCULAR HEMOGLOBIN 32 PG (26.0-33.0); MEAN CORPUSCULAR HGB CONC 34 g/dl (31.0-36.0); MEAN CORPUSCULAR VOLUME 93 fL (82-100); NEUTROPHILS # (AUTO) 11.7 /CMM (1.8-8.9); NEUTROPHILS % (AUTO) 80.2 % (43.0-81.0); PLATELET COUNT (AUTO) 307 /CMM (150-450); RDW COEFFICIENT OF VARIATION 18.3 (11.5-15.0); RED BLOOD CELL COUNT(AUTO) 2.31 MIL/uL (4.0-5.2); WHITE BLOOD COUNT (AUTO) 14.6 K/uL (4.3-11.0)
[2018-01-31 06:51] LABS: CALCIUM, SERUM 8.6 mg/dL (8.5-10.1); CARBON DIOXIDE 25 mmol/L (21-32); CHLORIDE 96 mmol/L (98-107); CREATININE 3.8 mg/dL (0.6-1.3); GLUCOSE 86 mg/dL (74-106); POTASSIUM 4.3 mmol/L (3.5-5.1); SODIUM SERUM 132 mmol/L (136-145)
[2018-01-31 06:52] LABS: UREA NITROGEN, BLOOD 92 mg/dL (7-18)
[2018-01-31] MEDS: PROSOURCE / PROSTAT (PYXIS) 30 ML UDC GT SCH ×3 (08:56→16:48)
[2018-01-31] MEDS: DOCUSATE SODIUM LIQ 100 MG/10 ML UDC GT SCH (08:56)
[2018-01-31] MEDS: DAKINS QUARTER STRENGTH (0.125%) 480 ML BOTTLE TOP SCH (08:57)
[2018-01-31] MEDS: VIT B CMPLX 3/FA/VIT C/BIOTIN 1 TAB TABLET PO SCH (08:57)
[2018-01-31] MEDS: METOCLOPRAMIDE HCL 10 MG TABLET GT SCH ×2 (08:57→21:04)
[2018-01-31] MEDS: VITAMIN B COMP W-C 1 TAB TABLET GT SCH (08:57)
[2018-01-31] MEDS: DOXYCYCLINE HYCLATE (100 MG) 100 MG TABLET PO SCH ×2 (08:57→21:04)
[2018-01-31] MEDS: LACTOBACILLUS RHAMNOSUS GG 1 EACH CAP.SPRINK GT SCH ×2 (08:57→16:48)
[2018-01-31] MEDS: risperiDONE 1 MG TABLET PO SCH ×2 (08:57→21:04)
[2018-01-31] MEDS: FERROUS SULFATE (325 MG) 325 MG/TAB TABLET GT SCH (08:57)
[2018-01-31] MEDS: ACETAMINOPHEN 325 MG TABLET PO PRN (13:17)
[2018-01-31] MEDS: COLISTIMETHATE SODIUM 100 MG in IV NS 0.9% 50 ML IV SCH (21:04)
[2018-01-31] MEDS: ATORVASTATIN 40 MG TABLET GT SCH (21:05)
[2018-02-01] VITALS: BP 105/52
[2018-02-01] MEDS: IPRATROPIUM NEB FS 0.5 MG/2.5 ML AMPUL.NEB NEB SCH ×4 (01:19→19:46)
[2018-02-01] MEDS: ALBUTEROL HALF STRENGTH 1.25 MG/3 ML VIAL.NEB NEB SCH ×4 (01:19→19:46)
[2018-02-01] MEDS: NYSTATIN TOP POWDER 15 GM BOTTLE TP SCH ×2 (03:30→15:43)
[2018-02-01 04:00] VITALS: BP 135/92
[2018-02-01] MEDS: MIDODRINE HCL (5MG) 5 MG TABLET GT SCH ×3 (04:57→20:22)
[2018-02-01] MEDS: BLOOD SUGAR DIAGNOSTIC 1 EACH STRIP IN SCH ×5 (05:46→23:17)
[2018-02-01 08:00] VITALS: BP 91/50
[2018-02-01] MEDS: DOCUSATE SODIUM LIQ 100 MG/10 ML UDC GT SCH ×2 (08:53→17:25)
[2018-02-01] MEDS: VIT B CMPLX 3/FA/VIT C/BIOTIN 1 TAB TABLET PO SCH (08:53)
[2018-02-01] MEDS: DOXYCYCLINE HYCLATE (100 MG) 100 MG TABLET PO SCH ×2 (08:53→20:24)
[2018-02-01] MEDS: FERROUS SULFATE (325 MG) 325 MG/TAB TABLET GT SCH (08:53)
[2018-02-01] MEDS: METOCLOPRAMIDE HCL 10 MG TABLET GT SCH ×2 (08:54→20:22)
[2018-02-01] MEDS: risperiDONE 1 MG TABLET PO SCH ×2 (08:54→20:24)
[2018-02-01] MEDS: VITAMIN B COMP W-C 1 TAB TABLET GT SCH (08:54)
[2018-02-01] MEDS: LACTOBACILLUS RHAMNOSUS GG 1 EACH CAP.SPRINK GT SCH ×2 (08:54→17:25)
[2018-02-01] MEDS: DAKINS QUARTER STRENGTH (0.125%) 480 ML BOTTLE TOP SCH (08:55)
[2018-02-01] MEDS: PROSOURCE / PROSTAT (PYXIS) 30 ML UDC GT SCH ×3 (08:56→17:25)
[2018-02-01 12:00] VITALS: BP 99/55
[2018-02-01] MEDS: RENAL NOVASOURCE 1,000 ML BOTTLE GT PRN (15:43)
[2018-02-01 16:00] VITALS: BP 96/63
[2018-02-01 20:00] VITALS: BP 94/49
[2018-02-01] MEDS: COLISTIMETHATE SODIUM 100 MG in IV NS 0.9% 50 ML IV SCH (20:21)
[2018-02-01] MEDS: ATORVASTATIN 40 MG TABLET GT SCH (23:17)
[2018-02-02] VITALS: BP 99/52
[2018-02-02] MEDS: ALBUTEROL HALF STRENGTH 1.25 MG/3 ML VIAL.NEB NEB SCH ×4 (01:16→19:46)
[2018-02-02] MEDS: IPRATROPIUM NEB FS 0.5 MG/2.5 ML AMPUL.NEB NEB SCH ×4 (01:16→19:46)
[2018-02-02] MEDS: NYSTATIN TOP POWDER 15 GM BOTTLE TP SCH ×2 (03:33→15:00)
[2018-02-02 04:00] VITALS: BP_SYST 81; BP_SYST 93; BP_DIAS 42; BP_DIAS 58
[2018-02-02] MEDS: MIDODRINE HCL (5MG) 5 MG TABLET GT SCH ×3 (04:39→20:05)
[2018-02-02] MEDS: BLOOD SUGAR DIAGNOSTIC 1 EACH STRIP IN SCH ×3 (05:29→17:28)
[2018-02-02 08:00] VITALS: BP_SYST 106; BP_DIAS 87; BP_DIAS 89
[2018-02-02] MEDS: DAKINS QUARTER STRENGTH (0.125%) 480 ML BOTTLE TOP SCH (09:00)
[2018-02-02] MEDS: DOCUSATE SODIUM LIQ 100 MG/10 ML UDC GT SCH (09:01)
[2018-02-02] MEDS: risperiDONE 1 MG TABLET PO SCH ×2 (09:02→20:05)
[2018-02-02] MEDS: DOXYCYCLINE HYCLATE (100 MG) 100 MG TABLET PO SCH ×2 (09:02→20:05)
[2018-02-02] MEDS: LACTOBACILLUS RHAMNOSUS GG 1 EACH CAP.SPRINK GT SCH ×2 (09:02→17:22)
[2018-02-02] MEDS: VITAMIN B COMP W-C 1 TAB TABLET GT SCH (09:02)
[2018-02-02] MEDS: VIT B CMPLX 3/FA/VIT C/BIOTIN 1 TAB TABLET PO SCH (09:02)
[2018-02-02] MEDS: FERROUS SULFATE (325 MG) 325 MG/TAB TABLET GT SCH (09:02)
[2018-02-02] MEDS: METOCLOPRAMIDE HCL 10 MG TABLET GT SCH ×2 (09:28→20:05)
[2018-02-02] MEDS: PROSOURCE / PROSTAT (PYXIS) 30 ML UDC GT SCH ×3 (09:28→17:28)
[2018-02-02 12:00] VITALS: BP_SYST 75; BP_SYST 95; BP_DIAS 36; BP_DIAS 71
[2018-02-02 16:00] VITALS: BP 130/93
[2018-02-02] MEDS ORDERED: MORPHINE SULFATE INJ 2 MG/ML DISP.SYRIN IV PRN (17:30)
[2018-02-02 20:00] VITALS: BP 93/45
[2018-02-02] MEDS: ATORVASTATIN 40 MG TABLET GT SCH (20:05)
[2018-02-02] MEDS: COLISTIMETHATE SODIUM 100 MG in IV NS 0.9% 50 ML IV SCH (20:12)
[2018-02-02] MEDS: ACETAMINOPHEN 325 MG TABLET PO PRN (20:12)
[2018-02-03] VITALS: BP 93/43
[2018-02-03] MEDS: BLOOD SUGAR DIAGNOSTIC 1 EACH STRIP IN SCH ×4 (00:23→18:02)
[2018-02-03] MEDS: IPRATROPIUM NEB FS 0.5 MG/2.5 ML AMPUL.NEB NEB SCH ×3 (01:18→14:26)
[2018-02-03] MEDS: ALBUTEROL HALF STRENGTH 1.25 MG/3 ML VIAL.NEB NEB SCH ×3 (01:18→14:26)
[2018-02-03] MEDS: NYSTATIN TOP POWDER 15 GM BOTTLE TP SCH ×2 (03:52→15:00)
[2018-02-03 04:00] VITALS: BP 93/53
[2018-02-03] MEDS: MIDODRINE HCL (5MG) 5 MG TABLET GT SCH ×2 (05:27→12:56)
[2018-02-03 08:00] VITALS: BP 106/64
[2018-02-03] MEDS: METOCLOPRAMIDE HCL 10 MG TABLET GT SCH (09:57)
[2018-02-03] MEDS: FERROUS SULFATE (325 MG) 325 MG/TAB TABLET GT SCH (09:57)
[2018-02-03] MEDS: VITAMIN B COMP W-C 1 TAB TABLET GT SCH (09:57)
[2018-02-03] MEDS: DOXYCYCLINE HYCLATE (100 MG) 100 MG TABLET PO SCH (09:57)
[2018-02-03] MEDS: RENAL NOVASOURCE 1,000 ML BOTTLE GT PRN (09:57)
[2018-02-03] MEDS: VIT B CMPLX 3/FA/VIT C/BIOTIN 1 TAB TABLET PO SCH (09:57)
[2018-02-03] MEDS: risperiDONE 1 MG TABLET PO SCH (09:57)
[2018-02-03] MEDS: LACTOBACILLUS RHAMNOSUS GG 1 EACH CAP.SPRINK GT SCH ×2 (09:57→17:59)
[2018-02-03] MEDS: PROSOURCE / PROSTAT (PYXIS) 30 ML UDC GT SCH ×3 (09:58→17:59)
[2018-02-03 12:00] VITALS: BP_SYST 90; BP_SYST 99; BP_DIAS 49
[2018-02-03] MEDS: DAKINS QUARTER STRENGTH (0.125%) 480 ML BOTTLE TOP SCH (12:56)
[2018-02-03 16:00] VITALS: BP 92/47
[2018-02-03] MEDS ORDERED: MORPHINE SULFATE 30 MG in IV NS 0.9% 28 ML, PCA TOTAL VOLUME 1 BAG IV PRN ×3 (18:00)
[2018-02-03] MEDS ORDERED: LORAZEPAM INJ 2 MG/ML VIAL IV PRN (18:00)
[2018-02-03] MEDS ORDERED: KEY,NONCONTROL,TO KEEP IN PYXI 1 EA MC ONE (18:55)
[2018-02-03 20:00] VITALS: BP 92/48
[2018-02-04] MEDS: NYSTATIN TOP POWDER 15 GM BOTTLE TP SCH ×2 (03:28→15:11)
[2018-02-04] MEDS: DAKINS QUARTER STRENGTH (0.125%) 480 ML BOTTLE TOP SCH (09:08)
[2018-02-04] MEDS ORDERED: KEY,NONCONTROL,TO KEEP IN PYXI 1 EA MC ONE ×2 (14:28→16:56)
[2018-02-05] MEDS: NYSTATIN TOP POWDER 15 GM BOTTLE TP SCH (03:54)
[2018-02-05 08:00] VITALS: BP 47/20
[2018-02-05] MEDS: DAKINS QUARTER STRENGTH (0.125%) 480 ML BOTTLE TOP SCH (09:28)
== END 2018-02-05 14:00 | disposition expired | DRG 981 ==
LOC: ER 16:18 → TELE1 20:17 → MEDSG1 02-03 19:22
PROVIDERS: ADMIT Nurse Practitioner Acute Care; ATTEND Nurse Practitioner Acute Care
PROC: 5A1955Z Respiratory Ventilation, Greater than 96 Consecutive Hours (ICD-10-PCS; 2018-01-15)
PROC: 5A1D70Z Performance of Urinary Filtration, Intermittent, Less than 6 Hours Per Day (ICD-10-PCS; 2018-01-16)
PROC: 30233N1 Transfusion of Nonautologous Red Blood Cells into Peripheral Vein, Percutaneous Approach (ICD-10-PCS; 2018-01-16)
PROC: 0QB10ZZ Excision of Sacrum, Open Approach (ICD-10-PCS; 2018-01-17)
PROC: 5A1D70Z Performance of Urinary Filtration, Intermittent, Less than 6 Hours Per Day (ICD-10-PCS; 2018-01-17)
PROC: 0QB10ZZ Excision of Sacrum, Open Approach (ICD-10-PCS; principal; 2018-01-18)
PROC: 05H533Z Insertion of Infusion Device into Right Subclavian Vein, Percutaneous Approach (ICD-10-PCS; principal; 2018-01-18)
PROC: B546ZZA Ultrasonography of Right Subclavian Vein, Guidance (ICD-10-PCS; principal; 2018-01-18)
PROC: 5A1D70Z Performance of Urinary Filtration, Intermittent, Less than 6 Hours Per Day (ICD-10-PCS; 2018-01-19)
PROC: 5A1D70Z Performance of Urinary Filtration, Intermittent, Less than 6 Hours Per Day (ICD-10-PCS; 2018-01-21)
PROC: 5A1D70Z Performance of Urinary Filtration, Intermittent, Less than 6 Hours Per Day (ICD-10-PCS; 2018-01-23)
PROC: 5A1D70Z Performance of Urinary Filtration, Intermittent, Less than 6 Hours Per Day (ICD-10-PCS; 2018-01-25)
PROC: 5A1D70Z Performance of Urinary Filtration, Intermittent, Less than 6 Hours Per Day (ICD-10-PCS; 2018-01-27)
PROC: 5A1D70Z Performance of Urinary Filtration, Intermittent, Less than 6 Hours Per Day (ICD-10-PCS; 2018-01-31)
PROC: 5A1D70Z Performance of Urinary Filtration, Intermittent, Less than 6 Hours Per Day (ICD-10-PCS; 2018-02-02)
DX: J95.851 Ventilator associated pneumonia (principal); A41.9 Sepsis, unspecified organism; I21.A1 Myocardial infarction type 2; E43 Unspecified severe protein-calorie malnutrition; I13.2 Hypertensive heart and chronic kidney disease with heart failure and with stage 5 chronic kidney disease, or end stage renal disease; Z99.11 Dependence on respirator [ventilator] status; L89.154 Pressure ulcer of sacral region, stage 4; J96.11 Chronic respiratory failure with hypoxia; R53.2 Functional quadriplegia; L89.313 Pressure ulcer of right buttock, stage 3; N18.6 End stage renal disease; I13.11 Hypertensive heart and chronic kidney disease without heart failure, with stage 5 chronic kidney disease, or end stage renal disease; N39.0 Urinary tract infection, site not specified; E87.1 Hypo-osmolality and hyponatremia; M86.9 Osteomyelitis, unspecified; D68.59 Other primary thrombophilia; I50.32 Chronic diastolic (congestive) heart failure; J98.11 Atelectasis; Z93.0 Tracheostomy status; R13.10 Dysphagia, unspecified; Z99.2 Dependence on renal dialysis; Z93.1 Gastrostomy status; R32 Unspecified urinary incontinence; Z88.1 Allergy status to other antibiotic agents; Z88.0 Allergy status to penicillin; Z79.82 Long term (current) use of aspirin; Z79.899 Other long term (current) drug therapy; Z79.4 Long term (current) use of insulin; F09 Unspecified mental disorder due to known physiological condition; Z87.01 Personal history of pneumonia (recurrent); Z95.1 Presence of aortocoronary bypass graft; I25.10 Atherosclerotic heart disease of native coronary artery without angina pectoris; L30.4 Erythema intertrigo; B96.4 Proteus (mirabilis) (morganii) as the cause of diseases classified elsewhere; E83.51 Hypocalcemia; Z51.5 Encounter for palliative care; Z68.28 Body mass index [BMI] 28.0-28.9, adult; D63.1 Anemia in chronic kidney disease; B96.89 Other specified bacterial agents as the cause of diseases classified elsewhere; B95.2 Enterococcus as the cause of diseases classified elsewhere; E11.69 Type 2 diabetes mellitus with other specified complication; E11.22 Type 2 diabetes mellitus with diabetic chronic kidney disease; E78.5 Hyperlipidemia, unspecified; I25.2 Old myocardial infarction; Y84.9 Medical procedure, unspecified as the cause of abnormal reaction of the patient, or of later complication, without mention of misadventure at the time of the procedure; Y82.9 Unspecified medical devices associated with adverse incidents; Y92.129 Unspecified place in nursing home as the place of occurrence of the external cause; K80.20 Calculus of gallbladder without cholecystitis without obstruction; E66.01 Morbid (severe) obesity due to excess calories; B95.62 Methicillin resistant Staphylococcus aureus infection as the cause of diseases classified elsewhere; Z16.30 Resistance to unspecified antimicrobial drugs
CPT/HCPCS: 31720; 36415; 36600; 71045-TC; 80048-TC; 80076-TC; 80170-TC; 80202-TC; 81000-TC; 82272-TC; 82962-TC; 83605-TC; 83735-TC; 84100-TC; 84484-TC; 85025-TC; 85730-TC; 86850-TC; 86921-TC; 87040-TC; 87070-TC; 87081-TC; 87086-TC; 87186-TC; 90935-TC; 94002-TC; 94003-TC; 94640-TC; 94760-TC; 94762-TC; 99082-TC; A4216; A4606; A6248; A6253; A6402; A6403; J0770; J1580; J1644; J1815; J1956; J2020; J2060; J2185; J2274; J2405; J3370; J3490; J7030; J7040; J7050; J7060; J8597; P9016-BL; P9047; Z7610